=== PATIENT | female | born 1945 | race Caucasian/White ===

== ENCOUNTER 2019-10-22 16:36 | Inpatient (IN) | payer MEDICARE, SELFPAY ==
[2019-10-22] VITALS (7 sets, daily range): BP systolic 105–175; BP diastolic 61–83; PULSE 62–73; RESP 15–21; TEMP 35.9–36.5; O2SAT 94–99
--- NOTE | ~2019-10-22 | XR_ITS ---
XR chest 2V DATE: 10/22/2019 17:03 INDICATION: Left chest pain TECHNIQUE: PA and lateral views COMPARISON: 11/11/2016 portable AP chest FINDINGS: Status post sternotomy and probable coronary artery bypass graft surgery. Normal heart size . Aortic calcification. No hilar or mediastinal enlargement. No pulmonary infiltrate or consolidation, pleural effusion or pulmonary vascular congestion or pneumo thorax. There is scoliosis and degenerative spurring of the thoracic and lumbar spine. IMPRESSION: No active cardiopulmonary disease Reviewed, dictated and finalized at location A.
--- NOTE | 2019-10-22 16:41 | ECG_ITS ---
Measurements Intervals [place] Rate: 69 P: 25 CA: 172 QRS: -37 QRSD: 117 T: 28 QT: 398 QTc: 427 Interpretive Statements SINUS RHYTHM LEFT AXIS DEVIATION INTRAVENTRICULAR CONDUCTION DELAY VOLTAGE CRITERIA FOR LVH POOR R WAVE PROGRESSION, ANTERIOR LEADS BASELINE ARTIFACT- I, III, AVL, AVF, V4 BORDERLINE ECG Electronically Signed On 10-22-2019 18:24:54 CDT by Josh Luico D.O.
--- NOTE | 2019-10-22 16:51 | PC.NURSE ---
Pt notes she took Asa 324 at home this am.
[2019-10-22 16:59] LABS: Basophils Absolute Auto 0.1 K/mm3 (0.0-0.1); Basophils Percent Auto 0.6 % (0.2-1.2); Eosinophils Absolute Auto 0.2 K/mm3 (0-0.3); Eosinophils Percent Auto 1.9 % (0-4.4); Hemoglobin 13.7 g/dL (12.0-15.0); Immature Granulocyte Absolute 0.03 K/mm3 (0.00-0.031); Immature Granulocyte Percent A 0.3 % (0-0.5); Lymphocytes Absolute Auto 2.22 K/mm3 (0.9-3.2); Lymphocytes Percent Auto 25.8 % (18.3-44.2); Mean Corpuscular HGB Conc 31.9 g/dl (32-36); Mean Corpuscular Hemoglobin 25.8 pg (26-34); Mean Platelet Volume 8.9 fl (7.4-10.4); Monocytes Absolute Auto 0.6 K/mm3 (0.1-0.6); Monocytes Percent Auto 6.4 % (2.6-8.5); Neutrophils Absolute Auto 5.6 K/mm3 (1.3-6.7); Platelet Count Result 278 k/mm3 (150-375); Red Blood Count 5.31 M/mm3 (4.2-5.4); White Blood Count 8.6 K/mm3 (4.5-10.0)
--- NOTE | 2019-10-22 17:04 | ED.CHESTPAIN ---
HPI - Chest Pain General Chief Complaint: Chest Pain Stated Complaint: THINK I'M HAVING A HEART ATTACK Time Seen by Provider: 10/22/19 17:03 History of Present Illness HPI narrative: Pressure like chest pain starting around 1545 this afternoon. Substernal. Radiates to left arm. Associated with mild nausea. No SOB. She has a h/o 5 vessel CABG in 2017. She has never had similar symptoms in the past. She took 325 of aspirin. Pain is nearly resolved on arrival to the ED. Related Data Home Medications Medication Instructions Recorded Confirmed aspirin 325 mg PO DAILY 10/22/19 10/23/19 diclofenac sodium 75 mg PO BID PRN 10/22/19 10/22/19 lisinopril-hydrochlorothiazide 1 tablet PO DAILY 10/22/19 10/22/19 metoprolol succinate 25 mg PO DAILY 10/22/19 10/22/19 pantoprazole 40 mg PO HS 10/22/19 10/22/19 rosuvastatin 10 mg PO HS 10/22/19 10/23/19 Allergies Allergy/AdvReac Type Severity Reaction Status Date / Time No Known Allergies Allergy Verified 10/22/19 16:47 Review of Systems Review of Systems: All systems reviewed & are unremarkable except as noted in HPI and below Constitutional: Constitutional: Denies chills and Denies fever(s) Cardiovascular: Cardiovascular: Reports chest pain and Reports radiating jaw, neck or arm pain Respiratory: Respiratory: Denies dyspnea Gastrointestinal: Gastrointestinal: Reports abdominal pain Neurologic: Denies numbness and Denies weakness [facility] Past Medical History Medical History (Updated 10/23/19 @ 07:04 by Angel Kaufman MD) CAD (coronary artery disease) HTN (hypertension) Hyperlipidemia Surgical History Surgical History (Updated 10/22/19 @ 23:14 by Shirley Quintero NP) H/O bilateral cataract extraction Hx of CABG 5 vessel 2017 S/P appendectomy Family History Family History Mother Family history of heart attack Father Cancer of lung Sibling Diabetes mellitus Family history of heart attack Social History Social History (Updated 10/22/19 @ 23:18 by Shirley Quintero NP) Social History: The patient is . She lives home alone. She has 3 children. Patient denies any marijuana or illicit drugs. She tells me that she is a DNR we discussed what that meant she stated she does not want anything done not even CPR. She would even want to be shocked she is in VFib. She believes her sister's her durable power of patent attorney for healthcare. She is retired from [employer]. She is a former smoker. She quit 50 years ago. Smoking packs per day: 0.5 Smoking cigarettes per day: 10.0 Years smoked: 5 Smoking pack-years: 2.50 Smoking status: Former smoker Tobacco type: cigarettes Smoking end date: 04/30/1967 Alcohol intake: former Drinks per week: 1 Substance use: never Gender identity (if verbalized by the patient): Female Spiritual care concerns: No Exam Const: General: healthy appearing, no acute distress and alert Orientation/consciousness: patient oriented x3 HENMT: Head: normal to inspection Neck: Neck: normal visual inspection and no lymphadenopathy Chest: Chest palpation & inspection: no tenderness Resp: Effort & Inspection: normal respiratory effort Auscultation: clear to auscultation bilaterally, no rales, no rhonchi and no wheezes Cardio: Jugular venous distension: no JVD Rate: regular rate Rhythm: regular rhythm Heart sounds: Murmur heart sound present systolic GI: Inspection: non-distended GI Palp: Yes Soft to palpation and No Tenderness to palpation present (GI) Skin: General skin exam: normal color Neuro: General: patient oriented x3 and moves all extremities Speech: normal speech Extrem: General: no edema Psych: Appearance: well kempt Affect: normal affect Course Vital Signs Vital signs: Vital Signs Temperature 36.5 C 10/22/19 16:44 Pulse Rate 73 10/22/19 16:44 Respiratory Rate 15 10/22/19 16:44 Blood Pressure 175/82 H
[2019-10-22 17:09] LABS: Prothrombin Time 13.1 Seconds (11.1-14.7)
[2019-10-22 17:10] LABS: Blood Urea Nitrogen 24 mg/dL (7-17); Calcium 9.8 mg/dL (8.4-10.2); Carbon Dioxide 28 mmol/L (22-30); Chloride 105 mmol/L (98-107); Estimated CRCL calculation 42 ml/min; Estimated Glomerular Filt Rate 44; Glucose 114 mg/dL (65-105); Partial Thromboplastin Time 27.8 SECONDS (22.3-36.8); Potassium 3.7 mmol/L (3.4-5.0); Sodium 140 mmol/L (137-145)
[2019-10-22 17:22] LABS: Troponin I 0.022 ng/mL (0.000-0.034)
[2019-10-22] MEDS: NITROGLYCERIN SL 0.4 MG TABLET SUBLINGUAL (18:36)
--- NOTE | 2019-10-22 18:37 | PC.NURSE ---
1836: 0.4 mg sublingual nitro given HR: 68 BP: 155/72 Pain 2/10
--- NOTE | 2019-10-22 18:40 | PC.NURSE ---
Pt states the CP is gone after one dose of Nitro
[2019-10-22] MEDS: LACTATED RINGERS 1,000 ML 75 ML IV CONT (20:14)
--- NOTE | 2019-10-22 20:54 | ADMGEN ---
This patient, Ana Esquivel, was admitted to IMU Room 207-01 from ER 10/22/191939. Patient/family oriented to hospital policies and general routines including ID bracelet, bed and alarms, visiting hours, pain management, procedures, bathroom and other care routines, personal items, smoking policy, room service/diet, and visiting hours. Valuables list has been completed. Information on how to activate the Rapid Response Team has been discussed. Patient/Family are encouraged to report perceived risks to care and to ask questions if they do not understand what they are told or what they should do.
[2019-10-22] MEDS: SODIUM CHLORIDE 0.9% IV 1,000 ML 75 ML IV CONT (21:34)
[2019-10-22] MEDS: HEPARIN SODIUM 5,000 UNITS/ML VIAL 4000 UNITS IV PUSH (21:35)
[2019-10-22] MEDS: HEPARIN SOD/D5W 100 UNITS/ML 25,000 UNITS/250 ML BAG 8 UNITS IV CONT (21:35)
--- NOTE | 2019-10-22 23:08 | PM.IMHP ---
H&P: HPI History of Present Illness Chief complaint: Chest Pain Narrative: Ana Esquivel is a 73 year old female who was a past medical history of having a 5 vessel CABG. And also hypertension. The patient developed pressure-like chest pain this afternoon. It is substernal. It radiated to left arm. The patient stated felt like she was having a heart attack. Thatch no shortness of breath she has never had this in the past. The patient stated that she did not have a heart attack in the past she just had coronary artery disease and had a 5 vessel CABG.EKG was read as poor R wave progression baseline artifact borderline EKG. First troponin was negative and the 2nd troponin was 1.460. Cardiology has been consulted and ordered a heparin drip. Patient is not currently having any discomfort. Was read as no acute active cardiopulmonary disease. Patient was given an aspirin, nitroglycerin, lactic Ringer's, and heparin drip. Date of service 10/22/2019 Review of Systems Review of Systems: All systems reviewed & are unremarkable except as noted in HPI and below Constitutional: Constitutional: Reports as per HPI and Reports no additional constitutional complaints Eyes: Eyes: Reports as per HPI and Reports no additional eye complaints ENT: Reports system reviewed and no additional complaints, except as documented and Reports Normal hearing present Cardiovascular: Cardiovascular: Reports no additional cardiovascular complaints Respiratory: Respiratory: Reports no additional respiratory complaints and Reports no additional respiratory complaints Gastrointestinal: Gastrointestinal: Reports as per HPI and Reports no additional gastrointestinal complaints Musculoskeletal: Musculoskeletal: Reports no additional musculoskeletal complaints Integumentary/Breasts: Skin/Breast: Reports system reviewed and no additional complaints, except as docu and Reports as per HPI Neurologic: Reports system reviewed and no additional complaints, except as documented, Reports as per HPI and Reports Normal hearing present Psychiatric: Psychiatric: Reports no additional psychiatric complaints and Reports as per HPI Endocrine: Endocrine: Reports no additional endocrine complaints Hematologic/Lymphatic: Hematologic/Lymphatic: Reports no additional hematologic/lymphatic complaints Allergic/Immunologic: Allergic/Immunologic: Reports no additional allergic/immunologic complaints [facility] Past Medical History Medical History (Updated 10/22/19 @ 23:22 by Shirley Quintero NP) CAD (coronary artery disease) HTN (hypertension) Hyperlipidemia Surgical History Surgical History (Updated 10/22/19 @ 23:14 by Shirley Quintero NP) H/O bilateral cataract extraction Hx of CABG 5 vessel 2017 S/P appendectomy Family History Family History Mother Family history of heart attack Father Cancer of lung Sibling Diabetes mellitus Family history of heart attack Social History Social History (Updated 10/22/19 @ 23:18 by Shirley Quintero NP) Social History: The patient is . She lives home alone. She has 3 children. Patient denies any marijuana or illicit drugs. She tells me that she is a DNR we discussed what that meant she stated she does not want anything done not even CPR. She would even want to be shocked she is in VFib. She believes her sister's her durable power of employment law attorney for healthcare. She is retired from [employer]. She is a former smoker. She quit 50 years ago. Smoking packs per day: 0.5 Smoking cigarettes per day: 10.0 Years smoked: 5 Smoking pack-years: 2.50 Smoking status: Former smoker Tobacco type: cigarettes Smoking end date: 04/30/1967 Alcohol intake: former Drinks per week: 1 Substance use: never Gender identity (if verbalized by the patient): Female Spiritual care concerns: No Meds Home Medications and Allergies Home Medications Medication
[2019-10-23] VITALS (33 sets, daily range): BP systolic 102–171; BP diastolic 55–95; PULSE 55–74; RESP 16–20; TEMP 35.8–37.1; O2SAT 91–96
--- NOTE | 2019-10-23 | ECHO_ITS ---
Patient Info Name: Ana Esquivel Age: 73 years : 1945 Gender: Female Ht: 66 in Wt: 185 lbs BSA: 2.00 m2 HR: 98 bpm BP: 151 / 75 mmHg Technical Quality: Good Exam Date: 10/23/2019 9:05 AM Exam Location: [facility] Patient Status: Inpatient Admit Date: 10/22/2019 Staff Ordering Physician: Davina Leone PA-C [place] Supervisor: Mckenzie Martin RDCS Attending Provider: Davina Leone PA-C Referring Physician: Sulema BUTCHER; Exam Type: CA echo doppler color flow Study Info Indications - LOUD MURMUR ACS Complete two-dimensional, color flow and Doppler transthoracic echocardiogram is performed. Summary 1. Left ventricular systolic function is normal, estimated at 55-60%. 2. There is moderately increased left ventricular wall thickness. 3. There is severe aortic valve sclerosis. 4. There is severe aortic valve stenosis. 5. The mitral valve has calcified annulus. 6. There is mild mitral valve regurgitation. 7. There is mild mitral valve stenosis. 8. There is mild tricuspid valve regurgitation. 9. Mild pulmonary hypertension, estimated pulmonary arterial systolic pressure is 42 mmHg. Left Ventricle Left ventricular chamber dimension is normal. Left ventricular systolic function is normal, estimated at 55-60%. There is moderately increased left ventricular wall thickness. Left ventricular septal wall motion is normal. The left ventricular diastolic function is normal. Right Ventricle Right ventricular chamber dimension is normal. Right ventricular systolic function is normal. Left Atria Left atrial chamber dimension is mildly enlarged. Right Atria Right atrial chamber dimension is normal. Aortic Valve The aortic valve is trileaflet. There is severe aortic valve sclerosis. There is severe aortic valve stenosis. There is no aortic valve regurgitation. Pulmonic Valve The pulmonic valve is normal. There is no pulmonic valve stenosis. There is no pulmonic regurgitation. Mitral Valve The mitral valve has calcified annulus. There is mild mitral valve stenosis. There is mild mitral valve regurgitation. Tricuspid Valve The tricuspid valve leaflets are normal. There is no significant tricuspid valve stenosis. There is mild tricuspid valve regurgitation. Mild pulmonary hypertension, estimated pulmonary arterial systolic pressure is 42 mmHg. Pericardium/Pleural The pericardium appears normal. There is no pericardial effusion. Aorta The aortic root size at the sinus of Valsalva is normal. The prox ascending aorta size is normal. Left Ventricular Outflow Tract Name Value Normal LVOT 2D LVOT Diameter 2.0 cm LVOT Doppler LVOT Peak Gradient 4 mmHg LVOT Mean Gradient 3 mmHg LVOT VTI 30 cm LVOT VTI/AV VTI Ratio 0.3 LVOT Stroke Volume 92 ml LVOT CO 15.3 l/min LVOT CI 7.7 l/min/m2 Pulmonic Valve
[2019-10-23] MEDS: PANTOPRAZOLE 40 MG TABLET PO ×2 (00:43→20:09)
[2019-10-23] MEDS: ROSUVASTATIN 10 MG TABLET PO ×2 (00:43→20:09)
[2019-10-23 03:31] LABS: Basophils Percent Auto 0.5 % (0.2-1.2); Eosinophils Absolute Auto 0.2 K/mm3 (0-0.3); Eosinophils Percent Auto 2.4 % (0-4.4); Hematocrit 39.2 % (37.0-47.0); Hemoglobin 12.3 g/dL (12.0-15.0); Immature Granulocyte Absolute 0.02 K/mm3 (0.00-0.031); Immature Granulocyte Percent A 0.3 % (0-0.5); Lymphocytes Absolute Auto 2.11 K/mm3 (0.9-3.2); Lymphocytes Percent Auto 31.8 % (18.3-44.2); Mean Corpuscular HGB Conc 31.4 g/dl (32-36); Mean Corpuscular Hemoglobin 25.8 pg (26-34); Mean Corpuscular Volume 82.4 fl (80-100); Mean Platelet Volume 9.4 fl (7.4-10.4); Monocytes Absolute Auto 0.5 K/mm3 (0.1-0.6); Monocytes Percent Auto 7.1 % (2.6-8.5); Neutrophils Absolute Auto 3.9 K/mm3 (1.3-6.7); Neutrophils Percent Auto 57.9 % (45.5-73.1); Platelet Count Result 244 k/mm3 (150-375); Red Blood Count 4.76 M/mm3 (4.2-5.4); Red Cell Distribution Width 16.1 % (11.5-14.5); White Blood Count 6.6 K/mm3 (4.5-10.0)
[2019-10-23 03:44] LABS: Partial Thromboplastin Time 113.7 SECONDS (22.3-36.8)
[2019-10-23 03:51] LABS: INR 1.2; Prothrombin Time 14.4 Seconds (11.1-14.7)
--- NOTE | 2019-10-23 08:03 | PM.IMPN ---
Progress Note: A&P Assessment and Plan (1) Chest pain: Qualifiers: Chest pain type: unspecified Qualified Code(s): R07.9 - Chest pain, unspecified Code(s): R07.9 - Chest pain, unspecified Status: Acute Assessment and Plan: ------the patient continues to have chest pain with the heparin drip. I have asked the nurse to give her a nitro to see if this helps. Her troponin was as high as 11 last night and I have redrawn it this morning. I am going to get an EKG at this time as well. Because of her loud murmur, will obtain echo. Await cardiologys recs, may need cath today. Will continue NPO status. (2) Elevated troponin: Code(s): R79.89 - Other specified abnormal findings of blood chemistry Status: Acute Assessment and Plan: -----See above. (3) Hyperlipidemia: Code(s): E78.5 - Hyperlipidemia, unspecified Status: Chronic Assessment and Plan: -----Continue with rosuvastatin (4) CAD (coronary artery disease): Code(s): I25.10 - Atherosclerotic heart disease of [place] coronary artery without angina pectoris Status: Chronic Assessment and Plan: ------History of 5 vessel CABG and she sees Dr. Villalta. She has been having dyspnea on exertion for the last 6 months. See above (5) HTN (hypertension): Code(s): I10 - Essential (primary) hypertension Status: Chronic Assessment and Plan: -----last blood pressure 151/75. Continue metoprolol Time Spent With Patient Time with patient: 25 - 35 minutes Subjective Date/time seen: 10/23/19 08:03 Interval history: Pt is a 73-year-old female here for chest pain. Patient was seen today and states she is still having her pressure-like chest pain and she rates it a 7/10 but says it is tolerable. She has no shortness of breath at rest, diaphoresis, left arm pain, or jaw pain. She does have some dyspnea on exertion if she is up and moving. This started about 6 months ago and has been getting progressively worse. She has not taken a nitro since admission in the ER but that did help her at that time. She denies fevers, chills, nausea, vomiting, diarrhea, or constipation. She had her CABG in [address] Villalta. She has no known history of valvular disease Review of Systems Review of Systems: All systems reviewed & are unremarkable except as noted in HPI and below Exam Narrative: Exam Narrative: General: Well developed well nourished patient sitting comfortably on the side of the bed in no acute distress HEENT: normocephalic Neck: supple Neuro: Alert and oriented x4 CV:RRR with a loud systolic murmur. Telemetry without significant alarm reviews Resp:CTA Abd: Soft, non distended. No pain to palpation. Positive bowel sounds Extremities: No swelling, erythema, or pain to palpation. Objective Data Vital Signs Vital Signs: Vital Signs - 24 hr 10/22/19 16:44 10/22/19 16:48 10/22/19 17:43 Temperature 97.7 F Pulse Rate 73 71 68 Respiratory Rate 15 20 Blood Pressure 175/82 H 175/83 H Pulse Oximetry 97 95 10/22/19 19:00 10/22/19 19:40 10/22/19 20:00 Temperature 96.6 F L Pulse Rate 66 62 65 Respiratory Rate 21 H 18 Blood Pressure 105/66 125/61 Pulse Oximetry 94 99 10/22/19 22:00 10/23/19 00:00 10/23/19 01:42 Temperature 97 F L Pulse Rate 68 64 65 Respiratory Rate 18 Blood Pressure 125/64 Pulse Oximetry 94 10/23/19 04:00 10/23/19 04:14 10/23/19 05:45 Temperature 96.5 F L Pulse Rate 66 69 70 Respiratory Rate 18 Blood Pressure 136/67 Pulse Oximetry 95 Intake/Output Intake/Output: Intake & Output 10/20/19 10/21/19 10/22/19 10/23/19 23:59 23:59 23:59 23:59 Intake Total 100 1015 Output Total 200 Balance 100 815 Meds/Results Medications: Active Medications Generic Name Dose Route Start Last Admin Trade Name Freq PRN Reason Stop Dose Admin Heparin Sodium (Porcine)
[2019-10-23] MEDS: NITROGLYCERIN SL 0.4 MG TABLET SUBLINGUAL (08:05)
--- NOTE | 2019-10-23 08:09 | ECG_ITS ---
Measurements Intervals [place] Rate: 61 P: 20 NC: 170 QRS: -34 QRSD: 110 T: 141 QT: 351 QTc: 354 Interpretive Statements SINUS RHYTHM LEFT AXIS DEVIATION INTRAVENTRICULAR CONDUCTION DELAY VOLTAGE CRITERIA FOR LVH BORDERLINE R WAVE PROGRESSION, ANTERIOR LEADS NONSPECIFIC T-WAVE ABNORMALITY- HIGH LATERAL LEADS BASELINE ARTIFACT- I, II, III BORDERLINE ECG Electronically Signed On 10-23-2019 11:03:23 CDT by Josh Lucio D.O.
--- NOTE | 2019-10-23 08:51 | PM.CNCAR ---
Assessment and Plan Assessment and plan (1) NSTEMI (non-ST elevated myocardial infarction): Code(s): I21.4 - Non-ST elevation (NSTEMI) myocardial infarction Status: Acute Assessment and Plan: 73 y/o with h/o CAD s/p CABG X5 in 2017 who presents with chest pain and NSTMI Trop up to 18 and rising She is chest pain free now EKG with T wave inversion in I and AVL She is scheduled for C early this afternoon Mean while she is on IV heparin. Will also start Nitro transdermal to manage her anginal pain She has received full dose ASA WIll resume Statin Would Continue Metoprolol but will hold her other antihypertensives for now to allow BP room for nitroglycerin Check 2D echocardiogram (2) CAD (coronary artery disease): Code(s): I25.10 - Atherosclerotic heart disease of [place] coronary artery without angina pectoris Status: Chronic Assessment and Plan: s/p CABG X5 in 2017 MARSHALL to LAD, SVG to D1,D2,OM2,RCA) (3) Aortic stenosis: Code(s): I35.0 - Nonrheumatic aortic (valve) stenosis Status: Acute Assessment and Plan: Moderate based on Echo in Dec. WIll follow echo ordered today (4) HTN (hypertension): Code(s): I10 - Essential (primary) hypertension Status: Chronic History of Present Illness History of Present Illness Consult date/time: 10/23/19 08:51 73 y/o female with h/o CAD s/p CABG X5 in 2017 (MARSHALL to LAD, SVG to D1,D2, OM2,and distal RCA) , HTN, HLD, moderate who presented with chest pain and NSTMI Patient reports episode of chest pain, left sided pressure like yesterday and called her sister who took her to ER but by the time she got to ER chest pain has resolved (took ASA at home). No assoicated nausea, diaphoresis or dyspnea. She had another episode of chest pain while in ER and another episode this am both resolved with nitro SL. Her troponin came back positive and still rising 1.5-->11-->18. She feels better after episode of chest pain this am with nitro,chest pain down to 1/10 from 710. Her EKG shows normal sinus rhythm with T wave inversion in I and AVL. She last saw her medical claims assistant (Dr Johnson) in Sep and had stress test at that time which was negative for ischemia with inferioapical fixed defect that was better on stress and felt to be artifactual. She also had echo with normal EF and moderate aortic stenosis with mean gradient of 34. She denies dyspnea currently but admits to increase dyspnea on exertion over the last few months. Denies dizziness, lightheadedness or syncope She quit smoking long time ago Reason For Visit: Chest Pain Review of Systems Review of Systems: All systems reviewed & are unremarkable except as noted in HPI and below Constitutional: Constitutional: Denies fatigue and Denies headache(s) Eyes: Eyes: Denies blurry vision ENT: Reports Normal hearing present and Denies headache(s) Cardiovascular: Cardiovascular: Reports chest pain, Denies diaphoresis, Denies pedal edema, Denies leg edema, Denies lightheadedness, Denies palpitations and Denies dyspnea Respiratory: Respiratory: Denies cough and Denies dyspnea Gastrointestinal: Gastrointestinal: Denies abdominal pain Musculoskeletal: Musculoskeletal: Denies back pain Neurologic: Reports Normal hearing present and Denies headache(s) Psychiatric: Psychiatric: Denies anxiety Endocrine: Endocrine: Denies fatigue and Denies palpitations PMFSH Past Medical History Medical History (Updated 10/23/19 @ 09:02 by Ismael Monreal MD) CAD (coronary artery disease) HTN (hypertension) Hyperlipidemia Surgical History Surgical History (Updated 10/22/19 @ 23:14 by Shirley Quintero NP) H/O bilateral cataract extraction Hx of CABG 5 vessel 2017 S/P appendectomy Family History Family History Mother Family history of heart attack Father Cancer of lung Sibling Diabetes mellitus Family history of
[2019-10-23] MEDS: NITROGLYCERIN 0.1 MG/HR PATCH 1 PATCH TRANSDERM (10:11)
[2019-10-23] MEDS: METOPROLOL SUCCINATE EXT REL 25 MG TABCR PO (10:17)
[2019-10-23] MEDS: SODIUM CHLORIDE 0.9% IV 1,000 ML 75 ML IV CONT (10:17)
[2019-10-23 11:10] LABS: Partial Thromboplastin Time 55.1 SECONDS (22.3-36.8)
[2019-10-23] MEDS: HEPARIN SODIUM 5,000 UNITS/ML VIAL 3000 UNITS IV PUSH (11:50)
--- NOTE | 2019-10-23 14:04 | WPDMODSED ---
Moderate Sedation Note-Pt Data Patient Data Allergies Allergy/AdvReac Type Severity Reaction Status Date / Time No Known Allergies Allergy Verified 10/22/19 16:47 Home Medications Medication Instructions Recorded Confirmed Type aspirin 325 mg PO DAILY 10/22/19 10/23/19 History diclofenac sodium 75 mg PO BID PRN 10/22/19 10/22/19 History lisinopril-hydrochlorothiazide 1 tablet PO DAILY 10/22/19 10/22/19 History metoprolol succinate 25 mg PO DAILY 10/22/19 10/22/19 History pantoprazole 40 mg PO HS 10/22/19 10/22/19 History rosuvastatin 10 mg PO HS 10/22/19 10/23/19 History Current Medications: Active Medications Heparin Sodium (Porcine) (Heparin Sodium) 4,000 units IV PUSH PRN PRN PRN Reason: aPTT less than 55 seconds Heparin Sodium (Porcine) (Heparin Sodium) 3,000 units IV PUSH PRN PRN PRN Reason: aPTT 55 - 70 seconds Last Admin: 10/23/19 11:50 Dose: 3,000 units Documented by: Sodium Chloride (Normal Saline Iv) 1,000 mls @ 75 mls/hr IV CONT .[id number] [facility] Last Admin: 10/23/19 10:17 Dose: 75 mls/hr Documented by: Heparin Sodium/Dextrose (Heparin Sodium/D5w 100 Units/Ml) 25,000 units in 250 mls @ 8 mls/hr IV CONT .Q24H [facility]; Protocol Last Titration: 10/23/19 11:52 Dose: 800 units/hr, 8 mls/hr Documented by: Metoprolol Succinate (Toprol Xl) 25 mg PO DAILY [facility] Last Admin: 10/23/19 10:17 Dose: 25 mg Documented by: Morphine Sulfate (Morphine Sulfate Inj) 2 mg IV PUSH Q2H PRN PRN Reason: Pain Rated 7-10 Nitroglycerin (Nitro-Dur 0.1 Mg/Hr) 1 patch TRANSDERM QAM [facility] Last Admin: 10/23/19 10:11 Dose: 1 patch Documented by: Pantoprazole Sodium (Protonix) 40 mg PO HS MADELIN Rosuvastatin Calcium (Crestor) 10 mg PO HS MADELIN Sedation/Anesthesia: No previous sedation/anesthesia problems (including family history). [facility] Past Medical History Medical History (Updated 10/23/19 @ 09:02 by Ismael Monreal MD) CAD (coronary artery disease) HTN (hypertension) Hyperlipidemia Surgical History Surgical History (Updated 10/22/19 @ 23:14 by Shirley Quintero NP) H/O bilateral cataract extraction Hx of CABG 5 vessel 2017 S/P appendectomy Family History Family History Mother Family history of heart attack Father Cancer of lung Sibling Diabetes mellitus Family history of heart attack Social History Social History (Updated 10/22/19 @ 23:18 by Shirley Quintero NP) Social History: The patient is . She lives home alone. She has 3 children. Patient denies any marijuana or illicit drugs. She tells me that she is a DNR we discussed what that meant she stated she does not want anything done not even CPR. She would even want to be shocked she is in VFib. She believes her sister's her durable power of scheduling coordinator for healthcare. She is retired from [employer]. She is a former smoker. She quit 50 years ago. Smoking packs per day: 0.5 Smoking cigarettes per day: 10.0 Years smoked: 5 Smoking pack-years: 2.50 Smoking status: Former smoker Tobacco type: cigarettes Smoking end date: 04/30/1967 Alcohol intake: former Drinks per week: 1 Substance use: never Gender identity (if verbalized by the patient): Female Spiritual care concerns: No Mod Sed Physical Exam Physical Exam Pre Procedural Exam: Normal: Appearance, Eyes, Ears, Nose, Neck, Throat, Airway, Lungs, Heart Size, Heart Rate, Heart Rhythm, Neuro Exam, Abdomen, Liver, Kidneys, Spleen, Breasts, Genitalia, Extremities and Skin Hours since solid foods: 8 Hours since liquid intake: 8 Internal Medicine - PN: Obj Da Vital Signs Vital Signs: Vital Signs - 24 hr 10/22/19 16:44 10/22/19 16:48 10/22/19 17:43 Temperature 36.5 C Pulse Rate 73 71 68 Respiratory Rate 15 20 Blood Pressure 175/82 H 175/83 H Pulse Oximetry 97 95 10/22/19 19:00 10/22/19 19:40 10/22/19 20:00 Temperature 35.9 C L Pulse Rate 66 62 65 Respiratory Rate 21 H 18 Blood Pressure
--- NOTE | 2019-10-23 14:32 | PC.NURSE ---
1350- to veterinary laboratory technician for procedure via bed accompanied by RN's
--- NOTE | 2019-10-23 14:37 | PC.NURSE ---
0825- called Dr. Balderrama elevated troponin and pt c/o chest pain this am-
--- NOTE | 2019-10-23 15:00 | SUR.PHASEII ---
BEGIN PHASE II RECOVERY. RETURNS TO [facility] S/P [facility] W/ DR. HAWKINS. AWAKE AND ALERT ON ARRIVAL. DENIES CP OR SOB. 5FR SHEATH INTACT R. FEM ARTERY. SITE SOFT, NONTENDER. NO HEMATOMA NOTED OR OOZE. VSS. MONITOR SR. IVF'S INFUSING ORDERED TO IV. R. PEDAL PULSE STRONG. SENSATION AND MOVEMENT R. FOOT WNL. WILL MONITOR.
--- NOTE | 2019-10-23 15:03 | WPDCARDPROC ---
Cardiac Cath Procedure Note Date of procedure:: 10/23/19 Performing physician:: Ben Villalta MD Procedure: 1. Left heart catheterization, selective coronary angiogram. 2. Bypass graft angiogram 3. Conscious sedation. Monitoring Tech: Dr. Ben Villalta Complications: None. Sedation: Conscious sedation, local anesthesia, using 1 mg of Versed said, 25 mcg of fentanyl, and using 1% lidocaine for local anesthesia. Starting time is 2:30 p.m. ending time is 3:00 p.m. Technique: After informed consent was obtained from patient, was brought to the laboratory mechanic helper, put in the laboratory mechanic helper table, prepped and draped in usual sterile fashion. [place] sheath was inserted into the right common femoral artery, through the sheath 5 [place] JL4 catheter inserted, advanced to the left coronary artery, left coronary artery angiogram was obtained. The catheter was exchanged over guidewire into a 5 [place] JR4 catheter, advanced to the right coronary artery, right coronary artery angiogram was obtained. The catheter then was exchanged over guidewire into this 5 [place] pigtail catheter, advanced to left ventricle, left ventricular pressure was obtained. MARSHALL catheter was used to engage the MARSHALL, and RCB catheter was used to engage the grafts. The catheter then was pulled, the sheath was pulled applying manual pressure for arterial hemostasis. Patient tolerated the procedure no complication, taken from the laboratory mechanic helper to his room in stable condition stable vital signs. Hemodynamics: aortic pressure 140/60 . LV pressure 184/04 with LVEDP of 25 mmHg, with 42 mmHg gradient across the aortic valve, calculated valve area is 0.67 cm squared Angiographic findings: Left main: Medium size vessel significant calcification and distal 50% disease Lad medium size artery, very calcified showed total occlusion right at the proximal portion Left circumflex artery, very calcified showed proximal area of stenosis 60%, 1st and 2nd obtuse marginal showed significant competitive flow seems to be filled the graft RCA: Showed proximal 90% disease and distal total occlusion Seven is venous graft to distal RCA is occluded MARSHALL to LAD is patent with good distal flow Saphenous venous graft to obtuse marginal 3 is patent with good flow Summary: Severe [place] coronary artery disease, patent MARSHALL and graft to obtuse marginal, occluded RCA graft but with total occlusion of the RCA, and some collaterals coming from the left system. Severe aortic valve stenosis Recommendation: Maximum medical treatment. Risk factor modification, will consider attempting angioplasty to the distal RCA with treatment of HAND CUTTER, she will need to have aortic valve replacement possibly TAVR.
--- NOTE | 2019-10-23 15:45 | SUR.PHASEII ---
PT. C/O HEADACHE PRIOR TO SHEATH PULL. REQUESTED TYLENOL. NOTIFIED DR. HAWKINS OF SUCH AND REQUESTED CLARIFICATION OF HEPARIN GTT ORDERS. ORDERS RECEIVED TO GIVE TYLENOL FOR HERNANDEZ AND DISCONTINUE ORDERS FOR HEPARIN GTT.
[2019-10-23] MEDS: ACETAMINOPHEN 325 MG TABLET 650 MG PO (16:07)
--- NOTE | 2019-10-23 16:18 | SUR.PHASEII ---
5FR SHEATH PULL FROM R. FEM ARTERY PER PROTOCOL BY THIS RN. FIRM STEADY MANUAL PRESSURE HELD TO SITE TO ACHIEVE HEMOSTASIS. TOLERATED WELL. WILL MONITOR CLOSELY.
--- NOTE | 2019-10-23 16:48 | SUR.PHASEII ---
HEMOSTASIS ACHIEVED TO R. FEM ARTERY PUNCTURE SITE AFTER 30 MINUTES MANUAL PRESSURE HOLD TO SITE BY THIS RN. TOLERATED WELL. SITE SOFT, NONTENDER, NO S/S BLEEDING, OOZE OR HEMATOMA NOTED. SITE DRESSED W/ STAT SEAL AND TEGADERM DRESSING. REVIEWED BEDREST TIME AND ACTIVITY RESTRICTIONS WITH PATIENT. VOICED UNDERSTANDING. WILL CONTINUE TO MONITOR.
--- NOTE | 2019-10-23 17:00 | SUR.PHASEII ---
CONDITION UPDATE GIVEN TO PT'S SISTER, CB PIERRE. [phone].
--- NOTE | 2019-10-23 17:40 | SUR.PHASEII ---
REPORT CALLED TO LENIN RIVER RN IN IMU. PT. IS TO RETURN TO ROOM 207. BEDREST UNTIL 2047.
--- NOTE | 2019-10-23 18:20 | SUR.PHASEII ---
END PHASE II RECOVERY. VSS. R. GROIN PUNCTURE SITE DRESSING C/D/I. NO BLEEDING OR HEMATOMA NOTED. SITE CLEAR. R. PEDAL PULSE IS STRONG. HAS VOIDED SMALL AMOUNT VIA BEDPAN. MONITOR SR. RETURNED TO IMU 207.1 VIA BED ON TELE MONITOR AT THIS TIME.
[2019-10-23] MEDS: SODIUM CHLORIDE 0.9% IV 1,000 ML 60 ML IV CONT (18:57)
--- NOTE | 2019-10-23 19:07 | PC.NURSE ---
1830- returned to room post cardiac cath- pt a/o x3- denies chest pain- vss- monitor SR 60's- Right groin with dressing-statseal/tegaderm - CDI; +2 pedal pulse- reviewed post op bedrest=pt verbalized understanding
[2019-10-24] VITALS: BP 116/73; PULSE 58; PULSE 68; RESP 16; TEMP 36.6; O2SAT 94
[2019-10-24 04:00] VITALS: BP 103/51; PULSE 64; PULSE 65; RESP 16; TEMP 36.5; O2SAT 92
[2019-10-24 04:53] LABS: Hematocrit 34.7 % (37.0-47.0); Hemoglobin 10.9 g/dL (12.0-15.0); Mean Corpuscular HGB Conc 31.4 g/dl (32-36); Mean Corpuscular Hemoglobin 25.8 pg (26-34); Platelet Count Result 216 k/mm3 (150-375); Red Blood Count 4.23 M/mm3 (4.2-5.4); Red Cell Distribution Width 16.2 % (11.5-14.5); White Blood Count 7.1 K/mm3 (4.5-10.0)
[2019-10-24 05:22] LABS: Alanine Aminotransferase 17 U/L (4-35); Alkaline Phosphatase 46 U/L (38-126); Aspartate Amino Transferase 62 U/L (14-36); Bilirubin,Total 0.8 mg/dL (0.2-1.3); Blood Urea Nitrogen 14 mg/dL (7-17); Calcium 8.3 mg/dL (8.4-10.2); Carbon Dioxide 24 mmol/L (22-30); Chloride 108 mmol/L (98-107); Estimated CRCL calculation 50 ml/min; Estimated Glomerular Filt Rate 55; Glucose 99 mg/dL (65-105); Magnesium 1.7 mg/dL (1.6-2.3); Potassium 3.7 mmol/L (3.4-5.0); Sodium 136 mmol/L (137-145)
[2019-10-24] MEDS: ACETAMINOPHEN 325 MG TABLET 650 MG PO (06:11)
--- NOTE | 2019-10-24 07:16 | PM.DS ---
DS: Admitting Diagnosis Admitting Diagnosis Admitting Diagnosis: Chest pain, unspecified DS: Discharge Diagnosis Discharge Diagnosis (1) NSTEMI (non-ST elevated myocardial infarction): Code(s): I21.4 - Non-ST elevation (NSTEMI) myocardial infarction Status: Acute (2) Aortic stenosis: Code(s): I35.0 - Nonrheumatic aortic (valve) stenosis Status: Acute (3) Chest pain: Qualifiers: Chest pain type: unspecified Qualified Code(s): R07.9 - Chest pain, unspecified Code(s): R07.9 - Chest pain, unspecified Status: Acute (4) Elevated troponin: Code(s): R79.89 - Other specified abnormal findings of blood chemistry Status: Acute (5) Hyperlipidemia: Code(s): E78.5 - Hyperlipidemia, unspecified Status: Chronic (6) CAD (coronary artery disease): Code(s): I25.10 - Atherosclerotic heart disease of [place] coronary artery without angina pectoris Status: Chronic (7) HTN (hypertension): Code(s): I10 - Essential (primary) hypertension Status: Chronic DS: Summary Hospital Course Reason for hospitalization: Chest pain Hospital Course: Patient is 73-year-old female who presented emergency room for pressure-like chest pain radiating to the left arm with a history of a CABG in 2017. Temperature 36.5?, pulse 73, respiratory rate 15, blood pressure 175/82, pulse ox 97 on room air. CBC within normal limits. BMP relatively normal with BUN 24 and creatinine 1.2. Initial chest x-ray showed no acute cardiopulmonary disease. EKG in the ER showed left axis deviation, intraventricular conduction delay, criteria for LVH but no significant abnormalities. 0.022 but increased to 1.460---> 11----> 18.8. Another EKG was done nonspecific T wave abnormalities in the lateral leads. Cardiology was consulted and she underwent a cardiac catheterization which showed: Severe [place] coronary artery disease, patent MARSHALL and graft to obtuse marginal, occluded RCA graft but with total occlusion of the RCA, and some collaterals coming from the left system. Severe aortic valve stenosis. Cardiology could not do any intervention and recommended Maximum medical treatment. Risk factor modification, will consider attempting angioplasty to the distal RCA with treatment of CRYSTALLOGRAPHY TEACHER, she will need to have aortic valve replacement possibly TAVR. The patient's did not have any chest pain after this and felt back to baseline. She was started on Plavix and is going to continue her regular home meds. She is going to follow-up with cardiology in 1-2 weeks. She also needs to get an evaluation for a TAVR. Status at Discharge Functional status at discharge: independent ambulation Overall status at discharge: patient is back to baseline Time Spent with Patient Time attestation: Total time spent providing and/or coordinating discharge services:34 min Time spent: Greater than 30 minutes Exam Narrative: Exam Narrative: General: Well developed well nourished patient sitting comfortably on the side of the bed in no acute distress HEENT: normocephalic Neck: supple Neuro: Alert and oriented x4 CV:RRR with a loud systolic murmur. Telemetry without significant alarm reviews Resp:CTA Abd: Soft, non distended. No pain to palpation. Positive bowel sounds Extremities: No swelling, erythema, or pain to palpation. Discharge Plan Discharge Attending physician on discharge: Dillan Sparks Consulting providers: Ben Villalta Discharging Clinician: Davina Leone Patient Disposition: Home, Self-Care Activity: as tolerated Diet: heart healthy Discharge Instructions: -please note your medications have changed -call your primary care physician if you start having black tarry stools -You are now on plavix which is sometimes revferred to as a blood thinner . This will make you bleed easier. If you have a wound or scrape yourself, you will need to hold pressure for a longer period
[2019-10-24 07:42] VITALS: PULSE 79
[2019-10-24] MEDS: METOPROLOL SUCCINATE EXT REL 25 MG TABCR PO (07:42)
[2019-10-24] MEDS: CLOPIDOGREL BISULFATE 75 MG TABLET PO (07:42)
[2019-10-24 08:00] VITALS: BP 114/75; PULSE 62; PULSE 69; RESP 16; TEMP 36.6; O2SAT 99
--- NOTE | 2019-10-24 09:43 | PM.PNCARD ---
Progress Note: A&P Assessment and Plan (1) NSTEMI (non-ST elevated myocardial infarction): Code(s): I21.4 - Non-ST elevation (NSTEMI) myocardial infarction Status: Acute Assessment and Plan: Pt underwent cath yesterday which showed patent MARSHALL to LAD and SVG to. SVG to RCA is occluded and there are colleteralls to distal occluded RCA. Cont medical management (2) Aortic stenosis: Code(s): I35.0 - Nonrheumatic aortic (valve) stenosis Status: Acute Assessment and Plan: Pt with severe . May benefit from TAVR. It needs to be arranged in tertiary center on outpatient basis. (3) CAD (coronary artery disease): Code(s): I25.10 - Atherosclerotic heart disease of [place] coronary artery without angina pectoris Status: Chronic (4) HTN (hypertension): Code(s): I10 - Essential (primary) hypertension Status: Chronic Assessment and Plan: well controlled. cont meds (5) Hyperlipidemia: Code(s): E78.5 - Hyperlipidemia, unspecified Status: Chronic Assessment and Plan: cont statin. Pt is going to be dc today with fu with her primary media relations manager (Dr. Villalta) in 3 days. Subjective Date/time seen: 10/24/19 09:43 Pt feels fine today, denies CP, SOB or palpitations. She is eager to go home. Pt was seen and examined, chart was reviewed, case d/w Dr. Villalta and pt's nurse. Review of Systems Review of Systems: All systems reviewed & are unremarkable except as noted in HPI and below Constitutional: Constitutional: Reports as per HPI Eyes: Eyes: Reports as per HPI ENT: Reports system reviewed and no additional complaints, except as documented and Reports as per HPI Cardiovascular: Cardiovascular: Reports as per HPI Respiratory: Respiratory: Reports as per HPI Gastrointestinal: Gastrointestinal: Reports as per HPI Genitourinary: Genitourinary: Reports as per HPI Musculoskeletal: Musculoskeletal: Reports as per HPI Exam Const: General: no acute distress Nutritional Appearance: well nourished Orientation/consciousness: patient oriented x3 HENMT: Head: normal to inspection and atraumatic Ears: hearing grossly normal bilaterally Face and sinus: normal facial exam Eyes: General: appearance normal, both eyes and all related structures Pupils: Equal, round and reactive pupils present EOM: EOMs intact bilaterally Neck: Neck: supple Chest: Chest palpation & inspection: normal inspection of the chest Resp: Effort & Inspection: normal respiratory effort and no respiratory distress Auscultation: clear to auscultation bilaterally Cardio: Jugular venous distension: no JVD Rate: regular rate Heart sounds: S1 normal heart sound present, S2 normal heart sound present and no murmurs Peripheral pulses: Peripheral pulses 2+ throughout GI: GI Palp: No abdominal tenderness Auscultation: normal bowel sounds Skin: General skin exam: normal color Neuro: General: patient oriented x3 Cranial nerves: Yes Equal, round and reactive pupils present Extrem: General: normal to inspection and no clubbing, cyanosis or edema Objective Data Vital Signs Vital Signs: Vital Signs - 24 hr 10/23/19 10:00 10/23/19 10:17 10/23/19 11:52 Temperature 36.2 C L Pulse Rate 62 64 55 L Respiratory Rate 20 Blood Pressure 171/78 H Pulse Oximetry 96 10/23/19 12:30 10/23/19 13:50 10/23/19 15:05 Temperature 37.1 C Pulse Rate 61 68 60 Respiratory Rate 16 Blood Pressure 121/64 Pulse Oximetry 91 10/23/19 15:20 10/23/19 15:35 10/23/19 15:50 Temperature Pulse Rate 61 60 59 L Respiratory Rate 16 18 18 Blood Pressure 139/68 140/66 145/64 H Pulse Oximetry 92 93 92 10/23/19 16:20 10/23/19 16:35 10/23/19 16:50 Temperature Pulse Rate 59 L 60 60 Respiratory Rate 16 20 16 Blood Pressure 148/79 H 127/90 134/70 Pulse Oximetry 92 93 93 10/23/19 17:05 10/23/19 17:20 10/23/19 17:35 Temperature Pulse Rate 59 L 60 64 Res
[2019-10-24 10:00] VITALS: PULSE 74
== END 2019-10-24 12:32 | disposition home or self-care (01) | DRG 282 ==
LOC: ANHED 18:20 → ANHIMU 18:30
PROVIDERS: Family Medicine; Nurse Practitioner; Physician Assistant; Specialist; Admitting Provider Internal Medicine; Emergency Provider Emergency Medicine; PCP Family Medicine Adolescent Medicine; Visit Provider Internal Medicine
PROC: 4A023N7 Measurement of Cardiac Sampling and Pressure, Left Heart, Percutaneous Approach (ICD-10-PCS; CPT 93459; principal; 2019-10-23 13:00)
DX: I21.4 Non-ST elevation (NSTEMI) myocardial infarction (principal); I25.10 Atherosclerotic heart disease of native coronary artery without angina pectoris; I35.0 Nonrheumatic aortic (valve) stenosis; E78.5 Hyperlipidemia, unspecified; R79.89 Other specified abnormal findings of blood chemistry; I10 Essential (primary) hypertension; Z66 Do not resuscitate; Z98.42 Cataract extraction status, left eye; Z98.41 Cataract extraction status, right eye; Z95.1 Presence of aortocoronary bypass graft; Z87.891 Personal history of nicotine dependence
CPT/HCPCS: 36415; 71046; 80048; 80076; 83735; 84484; 85025; 85027; 85610; 85730; 93005; 93306; 93459; 96361; 96365; 96366; 99285; A9270; C1769; C1887; C1894; G0378; J0461; J0583; J1644; J2250; J3010; J7030; J7040; J7120

== ENCOUNTER 2019-11-12 16:10 | Inpatient (IN) | payer MEDICARE, SELFPAY ==
[2019-11-12] VITALS (8 sets, daily range): BP systolic 124–139; BP diastolic 65–84; PULSE 90–102; RESP 18–20; TEMP 37.3–37.6; O2SAT 94–100; BMI 28.6
--- NOTE | ~2019-11-12 | XR_ITS ---
EXAMINATION: XR chest 2V DATE: 11/12/2019 18:12 INDICATION: Shortness of breath. Leukocytosis. TECHNIQUE: Frontal and lateral views of the chest were obtained. COMPARISON: Chest 2 views 10/22/2019 FINDINGS: There is mild atelectasis in left lower lung zone. No pleural effusion or pneumothorax. The heart size is normal. Median sternotomy wires and mediastinal surgical clips are seen, likely from p rior coronary artery bypass grafting. There is mild chronic anterior wedging of a midthoracic vertebr al body. IMPRESSION: 1. Mild atelectasis in left lower lung zone. Reviewed, dictated and finalized at location A.
--- NOTE | ~2019-11-12 | XR_ITS ---
EXAMINATION: XR hand BI arthritis min 3V DATE: 11/15/2019 17:41 INDICATION: Rheumatoid arthritis. Hand swelling. TECHNIQUE: 4 views of the right hand and 4 views of the left hand were obtained. COMPARISON: None. FINDINGS: RIGHT HAND: There is ulnar subluxation of fifth middle phalanx with respect to the proximal phalanx. No fracture. There is mild osteoarthritis of triscaphe joint and severe osteoarthritis of first carpo metacarpal joint. There is moderate osteoarthritis of second and third metacarpophalangeal joints. Th ere is severe osteoarthritis of fifth proximal interphalangeal joint. There is mild to moderate osteo arthritis of the other interphalangeal joints. LEFT HAND: Bone alignment is normal. No fracture. There is moderate osteoarthritis of triscaphe joint and severe osteoarthritis of first carpometacarpal joint. There is moderate osteoarthritis of second and third metacarpophalangeal joints. There is severe osteoarthritis of second, third, and fifth dis yolanda interphalangeal joints. There is mild to moderate osteoarthritis of the other interphalangeal my nts. IMPRESSION: 1. Polyarticular osteoarthritis. No evidence of inflammatory arthropathy. Reviewed, dictated and finalized at location A.
--- NOTE | ~2019-11-12 | US_ITS ---
US venous doppler UE DATE: 11/13/2019 15:11 INDICATION: Bilateral upper extremity pain TECHNIQUE: Real-time and color flow imaging and Doppler analysis of the veins of the upper extremitie s COMPARISON: None FINDINGS: There is flow documented by color flow imaging, augmentation and compression where applicab le at the internal jugular, subclavian, axillary, brachial, basilic, cephalic, radial and ulnar veins bilaterally. IMPRESSION: No evidence of deep venous thrombosis of either upper extremity Reviewed, dictated and finalized at [facility]. Reviewed, dictated and finalized at [facility].
--- NOTE | ~2019-11-12 | CT_ITS ---
EXAMINATION: CT brain wo con DATE: 11/12/2019 17:06 INDICATION: Right lower extremity paresis. Confusion, altered mental state for 4 hours. TECHNIQUE: Computed tomography (CT) of the head was performed without intravenous contrast. The mA wa s adjusted according to patient size. Iterative reconstruction technique was employed. Exam dose: 60 5.33 mGy-cm total exam DLP. COMPARISON: None FINDINGS: There is a focal small chronic area of encephalomalacia in the left frontal lobe, likely du e to old left frontal cerebrovascular infarct. No recent cerebrovascular accident is detected. CT is not sensitive for detection of hyperacute ische albertina cerebrovascular accident however. No intracranial mass lesion or hemorrhage. No midline shift or mass effect. Prominent bilateral carotid siphon internal carotid artery calcifications. There is nonspecific dimin ished attenuation of the subcortical and periventricular cerebral white matter, likely due to chronic small vessel ischemic changes. No subdural or epidural hematoma. No fracture or bone destruction of the cranial vault. Included paranasal sinuses and mastoid air cells are normally developed and aerated. 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 Reviewed, dictated and finalized at [facility]. Reviewed, dictated and finalized at [facility]. 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
--- NOTE | 2019-11-12 16:21 | ECG_ITS ---
Measurements Intervals [place] Rate: 90 P: MI: 0 QRS: -49 QRSD: 113 T: 106 QT: 370 QTc: 454 Interpretive Statements SINUS OR ECTOPIC ATRIAL RHYTHM LEFT ANTERIOR FASCICULAR BLOCK ST-T WAVE ABNORMALITY IN HIGH LATERAL LEADS- CONSIDER ISCHEMIA BASELINE ARTIFACT- I, II, III, AVR, AVL, AVF, V5 ABNORMAL ECG Electronically Signed On 11-12-2019 20:18:46 CDT by Josh Lucio D.O.
[2019-11-12 17:03] LABS: Hematocrit 40.5 % (37.0-47.0); Hemoglobin 13.2 g/dL (12.0-15.0); Mean Corpuscular HGB Conc 32.6 g/dl (32-36); Mean Corpuscular Hemoglobin 25.6 pg (26-34); Mean Corpuscular Volume 78.5 fl (80-100); Mean Platelet Volume 9.4 fl (7.4-10.4); Platelet Count Result 371 k/mm3 (150-375); Red Blood Count 5.16 M/mm3 (4.2-5.4); Red Cell Distribution Width 16.9 % (11.5-14.5); White Blood Count 36.8 K/mm3 (4.5-10.0)
[2019-11-12 17:23] LABS: Band Neutrophils Percent 13 % (0-6); Monocytes Absolute Manual 0.36 K/mm3 (0.1-0.90); Monocytes Percent Manual 1 % (3-9); Neutrophils Absolute Manual 35.32 K/mm3 (1.7-7.2); Neutrophils Percent Manual 83 % (46-73); Total Cells Counted 100
[2019-11-12 17:24] LABS: Anisocytosis 2+ (NORMAL); Platelet Estimate Adequate (Adequate)
--- NOTE | 2019-11-12 17:28 | ED.WEAKNESS ---
HPI - Weakness General Chief complaint: Weakness Stated complaint: weakness Time Seen by Provider: 11/12/19 16:39 Source: patient and family History of Present Illness HPI Narrative: 74-year-old female Main complaint is severe generalized muscle aching and weakness This is been getting worse since she was hospitalized here a couple weeks ago with NSTEMI and had a stent and was put on statins She also is supposed to be evaluated for a procedure on her heart valve but she is not sure what kind of procedure or which heart valve This afternoon she felt progressively more weak and ended up kind of falling onto the floor when she tried to get up and just felt bad and stayed there until somebody came and helped her up She denies more focal symptoms. Specifically no fever no productive cough no chest pain no urinary symptoms no vomiting or diarrhea She does not believe that she has focal weakness MD Complaint: generalized weakness, lack of energy and difficulty walking Onset (ago): day(s) Duration: progressively worsening Location: generalized Relieving factors: none Context: new medication Related Data Home Medications Medication Instructions Recorded Confirmed aspirin 325 mg PO DAILY 10/22/19 10/23/19 diclofenac sodium 75 mg PO BID PRN 10/22/19 10/22/19 lisinopril-hydrochlorothiazide 1 tablet PO DAILY 10/22/19 10/22/19 metoprolol succinate 25 mg PO DAILY 10/22/19 10/22/19 pantoprazole 40 mg PO HS 10/22/19 10/22/19 rosuvastatin 10 mg PO HS 10/22/19 10/23/19 Allergies Allergy/AdvReac Type Severity Reaction Status Date / Time No Known Allergies Allergy Verified 11/12/19 16:17 Review of Systems Review of Systems: All systems reviewed & are unremarkable except as noted in HPI and below Constitutional: Constitutional: Denies chills, Reports fatigue, Denies fever(s) and Reports weakness ENT: Denies sore throat Cardiovascular: Cardiovascular: Reports no additional cardiovascular complaints and Denies chest pain Respiratory: Respiratory: Denies chest congestion and Denies cough Gastrointestinal: Gastrointestinal: Denies diarrhea and Denies vomiting Genitourinary: Genitourinary: Denies nocturia and Denies dysuria Musculoskeletal: Musculoskeletal: Reports back pain, Reports myalgias and Reports arthralgias Neurologic: Denies headache(s) and Reports weakness Hematologic/Lymphatic: Hematologic/Lymphatic: Denies easy bruising PMFSH Past Medical History Medical History (Updated 11/12/19 @ 19:59 by Les Santiago MD) CAD (coronary artery disease) HTN (hypertension) Hyperlipidemia Surgical History Surgical History (Updated 10/22/19 @ 23:14 by Shirley Quintero NP) H/O bilateral cataract extraction Hx of CABG 5 vessel 2017 S/P appendectomy Social History Social History (Updated 10/22/19 @ 23:18 by Shirley Quintero NP) Social History: The patient is . She lives home alone. She has 3 children. Patient denies any marijuana or illicit drugs. She tells me that she is a DNR we discussed what that meant she stated she does not want anything done not even CPR. She would even want to be shocked she is in VFib. She believes her sister's her durable power of research attorney for healthcare. She is retired from [employer]. She is a former smoker. She quit 50 years ago. Smoking packs per day: 0.5 Smoking cigarettes per day: 10.0 Years smoked: 5 Smoking pack-years: 2.50 Smoking status: Former smoker Tobacco type: cigarettes Smoking end date: 04/30/1967 Alcohol intake: former Drinks per week: 1 Substance use: never Gender identity (if verbalized by the patient): Female Spiritual care concerns: No Exam Const: General: healthy appearing, no acute distress and well developed Nutritional Appearance: well nourished Orientation/consciousness: patient oriented x3 (alert) and Other orientation findings (Alert) Limitations: no limitations HENMT: Head: normocephalic and atraumatic Ea
[2019-11-12 18:18] LABS: Alanine Aminotransferase 14 U/L (4-35); Albumin Level 3.8 g/dL (3.5-5.1); Alkaline Phosphatase 97 U/L (38-126); Aspartate Amino Transferase 25 U/L (14-36); Bilirubin,Total 0.8 mg/dL (0.2-1.3); Blood Urea Nitrogen 32 mg/dL (7-17); Calcium 9.6 mg/dL (8.4-10.2); Carbon Dioxide 26 mmol/L (22-30); Chloride 95 mmol/L (98-107); Creatine Kinase 154 U/L (30-135); Estimated CRCL calculation 31 ml/min; Estimated Glomerular Filt Rate 32; Glucose 124 mg/dL (65-105); Potassium 3.6 mmol/L (3.4-5.0); Sodium 134 mmol/L (137-145)
[2019-11-12] MEDS: LACTATED RINGERS 1,000 ML 999 ML IV CONT ×2 (18:34→19:40)
[2019-11-12 19:30] LABS: Lactic Acid Reflex 1.6 mmol/L (0.7-2.1)
[2019-11-12 19:59] LABS: Add Urine Microscopic? YES; Appearance Urine Clear (Clear); Bilirubin Urine Negative (Negative); Blood Urine Negative (Negative); Cellular Casts Urine Present /lpf; Color Urine Yellow (Yellow); Glucose Urine UA Negative (Negative); Ketones Urine Trace mg/dL (Negative); Leukocyte Esterase Ur Negative LEU/UL (Negative); Mucus Urine Rare /lpf; Nitrate Urine Negative (Negative); Protein Urine 1+ mg/dL (Negative); RBC Urine 0-2 /hpf (0-2); Specific Grav Ur 1.019 (1.001-1.035); Squamous Epithelial Cell Urine Moderate /hpf (Few); Urobilinogen Urine Negative mg/dL (<2.0)
--- NOTE | 2019-11-12 21:39 | ADMGEN ---
This patient, Ana Esquivel, was admitted to 3 [facility] Surg Room 317-01. Patient/family oriented to hospital policies and general routines including ID bracelet, bed and alarms, visiting hours, pain management, procedures, bathroom and other care routines, personal items, smoking policy, room service/diet, and visiting hours. Valuables list has been completed. Information on how to activate the Rapid Response Team has been discussed. Patient/Family are encouraged to report perceived risks to care and to ask questions if they do not understand what they are told or what they should do.
[2019-11-12] MEDS: LACTATED RINGERS 1,000 ML 125 ML IV CONT (21:47)
[2019-11-13] VITALS (8 sets, daily range): BP systolic 129–149; BP diastolic 66–87; PULSE 64–92; RESP 18; TEMP 36.4–38; O2SAT 95–97
[2019-11-13] MEDS: ACETAMINOPHEN 325 MG TABLET 650 MG PO ×3 (05:37→17:50)
[2019-11-13] MEDS: LACTATED RINGERS 1,000 ML 125 ML IV CONT ×3 (05:38→23:59)
[2019-11-13 06:32] LABS: Basophils Absolute Auto 0.1 K/mm3 (0.0-0.1); Basophils Percent Auto 0.2 % (0.2-1.2); Hematocrit 35.7 % (37.0-47.0); Hemoglobin 11.7 g/dL (12.0-15.0); Immature Granulocyte Absolute 0.49 K/mm3 (0.00-0.031); Immature Granulocyte Percent A 1.9 % (0-0.5); Lymphocytes Absolute Auto 0.72 K/mm3 (0.9-3.2); Lymphocytes Percent Auto 2.8 % (18.3-44.2); Mean Corpuscular HGB Conc 32.8 g/dl (32-36); Mean Corpuscular Hemoglobin 25.8 pg (26-34); Mean Corpuscular Volume 78.6 fl (80-100); Mean Platelet Volume 9.8 fl (7.4-10.4); Monocytes Absolute Auto 1.2 K/mm3 (0.1-0.6); Monocytes Percent Auto 4.5 % (2.6-8.5); Neutrophils Absolute Auto 23.2 K/mm3 (1.3-6.7); Neutrophils Percent Auto 90.6 % (45.5-73.1); Platelet Count Result 301 k/mm3 (150-375); Red Blood Count 4.54 M/mm3 (4.2-5.4); Red Cell Distribution Width 17.1 % (11.5-14.5); White Blood Count 25.6 K/mm3 (4.5-10.0)
[2019-11-13 06:49] LABS: Blood Urea Nitrogen 24 mg/dL (7-17); Calcium 8.8 mg/dL (8.4-10.2); Carbon Dioxide 24 mmol/L (22-30); Chloride 97 mmol/L (98-107); Estimated CRCL calculation 44 ml/min; Estimated Glomerular Filt Rate 49; Glucose 137 mg/dL (65-105); Potassium 3.2 mmol/L (3.4-5.0); Sodium 132 mmol/L (137-145)
[2019-11-13 07:47] LABS: Crenated RBC 2+ (NORMAL)
[2019-11-13 07:48] LABS: Ovalocytes 1+ (NORMAL)
[2019-11-13 07:49] LABS: Platelet Estimate Adequate (Adequate)
[2019-11-13] MEDS: POTASSIUM CHLORIDE 20 MEQ TABLET 40 MEQ PO ×2 (08:22→17:50)
[2019-11-13] MEDS: CLOPIDOGREL BISULFATE 75 MG TABLET PO (08:22)
[2019-11-13] MEDS: ASPIRIN 325 MG TABLET PO (08:22)
[2019-11-13] MEDS: METOPROLOL SUCCINATE EXT REL 25 MG TABCR PO (08:22)
[2019-11-13 08:51] LABS: Erythrocyte Sedimentation Rate 70 mm/hr (0-20)
[2019-11-13 09:06] LABS: CRP 42.1 mg/dL (<1.0)
--- NOTE | 2019-11-13 13:59 | PM.IMHP ---
H&P: HPI History of Present Illness Chief complaint: weakness, leukocytosis Narrative: Ana Esquivel is a 74 year old female with a PMH significant for CAD s/p CABG in 2017 and NSTEMI 10/24/19, severe aortic stenosis, HTN, HLD, and GERD who presented to the emergency department with a complaint of generalized weakness, myalgias, and arthralgias since Sunday11/11/19. She was recently admitted 10/21-10/24/2019 for NSTEMI and was treated medically. Her cath showed patent MARSHALL to LAD with SVG to RCA occluded with collaterals to the distal RCA. Echo demonstrated severe aortic stenosis and she reports that she recently had a cardiac CT performed for valve visualization and surgical planning. She reports feeling occasionally shaky. She reports migratory myalgias and arthralgias. She reports a hx of similar symptoms due to statin therapy in the past and believes that her statin was recently changed although it looks like she was on rosuvastatin prior to her last admission and this was continued. Her sx were so severe on Sunday that she fell and stayed on the floor for approximately 2-3 hours. This event prompted her to proceed to the emergency department for further evaluation. At this time, she reports that her left hand feels swollen and is very painful to move. She also reports that her left leg is aching. She reports that her right leg was bothersome yesterday. She has no other specific complaints including no abdominal pain, vomiting, or nausea. She denies chest pain, dyspnea, cough, and palpitations. She denies headaches, lightheadedness, and dizziness. She denies lateralizing weakness, speech change, and vision change. She has no urinary complaints. She denies any new rashes but does note bruising to the lower extremities. Initial workup in the ED revealed WBC markedly elevated at 36,800 with a neutrophil predominance, Hb 13.2, Hct 40.5, sodium 134, potassium 3.6, chloride 95, CO2 26, BUN 32, Cr 1.6, lactic acid 1.6, CK 154, TSH 1.54, UA with 1+ protein, 10-15 WBC, moderate squamous epithelial cells and cellular casts, CXR with mild atelectasis, and CT brain with no acute findings and evidence of an old left frontal focal infarct and small vessel ischemic disease. She met SIRS criteria at admission with leukocytosis and tachycardia. Blood cultures were obtained and are pending. She was treated with IV ceftriaxone x1 dose and vancomycin in the ED and admitted to the hospitalist service for further evaluation and management. Review of Systems Review of Systems: Narrative: Constitutional: Endorses fever and chills. Denies night sweats. Reports generalized weakness and malaise. Reports anorexia and weight loss. Eyes: Denies vision change. No additional eye complaints. ENT: Denies change in hearing, ear pain, sinus congestion, nasal congestion, dysphagia, odynophagia, and sore throat. Cardiovascular: Denies palpitations and chest pain. Denies PND and orthopnea. Denies dyspnea on exertion. Reports intermittent lower extremity edema. Respiratory: Denies cough and shortness of breath. No other respiratory complaints. Gastrointestinal: Denies abdominal pain, nausea, and vomiting. Denies melena and hematochezia. Genitourinary: Denies dysuria, frequency, urgency, and hesitancy. Musculoskeletal: Reports generalized myalgias, arthralgias, and muscle stiffness that are diffuse and intermittent. Skin: Denies lesions and wounds. Neurologic: Denies focal weakness, paresthesias, and speech change. Reports that she has been somewhat confused at times. Psychiatric: Denies mood change. Denies anxiety and depression. Hematologic: Reports easy bruising with bruises on the lower extremities. All systems reviewed & are unremarkable except as noted in HPI and below PMFSH Past Medical History Medical History CAD (coronary artery disease) GERD (gastroesophageal reflux disease) HTN (hypertension) Hyperlipidemia Surgical Hist
--- NOTE | 2019-11-13 14:09 | PM.CNCAR ---
Assessment and Plan Assessment and plan (1) Leukocytosis: Code(s): D72.829 - Elevated white blood cell count, unspecified Status: Acute Assessment and Plan: 74 year-old white woman with history of Coronary Artery Disease s/p CABG (12/01/16, 5 vessel: MARSHALL to mid LAD, reverse saphenous vein graft from aorta to distal LAD, reversed saphenous vein graft from aorta to distal RCA, reverse saphenous vein graft from aorta to OM 2, reverse saphenous vein graft from aorta to diagonal 2, [facility]), status post non ST elevation myocardial infarction (10/24/2019, with left heart catheterization demonstrating occluded right coronary artery and occluded right coronary artery graft, with collateral flow to distal right coronary artery), severe aortic stenosis, hypertension, dyslipidemia, GERD, gout, who is seen in cardiac consultation for fever and leukocytosis, with associated non-ST elevation myocardial infarction. -increased white blood cells in urinalysis noted, with urine and blood cultures pending. She denied dysuria, polyuria, or any change in her urine. -white blood count improving with antibiotic therapy. -obtain transthoracic echo to evaluate for any evidence of valvular vegetation in the setting of her known severe aortic stenosis and presenting fever with leukocytosis, with evaluation for focal wall motion abnormalities in the setting of recurrent non ST elevation myocardial infarction. -if she has positive blood cultures, anticipate need for transesophageal echocardiogram for definitive evaluation of endocarditis in the setting of her severe aortic stenosis with diffuse myalgias and arthralgias. -given the absence of clear infectious source, consider Infectious Disease consultation per the primary service. -consider per the primary service COVID-19 testing given her diffuse myalgias and borderline low lymphocyte count, with an increase in exertional dyspnea in recent weeks. Also she will need COVID-19 testing prior to consideration of any ESTEFANÍA. (2) SIRS (systemic inflammatory response syndrome): Code(s): R65.10 - Systemic inflammatory response syndrome (SIRS) of non-infectious origin without acute organ dysfunction Status: Acute Assessment and Plan: -increased white blood cells in urinalysis noted, with urine and blood cultures pending. -she had fever, leukocytosis, presenting mild sinus tachycardia (102 beats per minute, with subsequent normalization of heart rate), and generalized muscle and joint aches. -evaluation, management, and antibiotic therapy as per primary service. -if she has positive blood cultures, anticipate need for transesophageal echocardiogram for definitive evaluation of endocarditis in the setting of her severe aortic stenosis with diffuse myalgias and arthralgias. -consider per the primary service COVID-19 testing given her diffuse myalgias and borderline low lymphocyte count, with an increase in exertional dyspnea in recent weeks. Also she will need COVID-19 testing prior to consideration of any ESTEFANÍA. (3) Aortic stenosis: Code(s): I35.0 - Nonrheumatic aortic (valve) stenosis Status: Acute Assessment and Plan: -she had evidence of severe aortic stenosis on recent echocardiogram. -Recently, she had 10/23/19 ECHO: Left ventricular systolic function is normal, estimated at 55-60%. There is moderately increased left ventricular wall thickness. There is severe aortic sclerosis. There is severe aortic valve stenosis. The mitral valve has calcified annulus. There is mild mitral valve regurgitation. There is mild mitral valve stenosis. There is mild tricuspid valve regurgitation. Mild pulmonary hypertension, estimated pulmonary arterial systolic pressure is 42 mmHg. -she was planned to have consideration for transcatheter aortic valve replacement at [facility]. She had a recent cardiac CT angiogram 11/10/2019, with results pending, given some infiltration of her IV which m
[2019-11-13 16:56] LABS: Troponin I 0.193 ng/mL (0.000-0.034)
--- NOTE | 2019-11-13 17:21 | PC.NURSE ---
[employer] Office Manager Dr Stubbs notified of elevated troponin levels. Attempted to contact Anne Guardado
[2019-11-13 20:12] LABS: Troponin I 0.181 ng/mL (0.000-0.034)
[2019-11-13] MEDS: PANTOPRAZOLE 40 MG TABLET PO (20:57)
[2019-11-13 23:12] LABS: Troponin I 0.153 ng/mL (0.000-0.034)
[2019-11-14] VITALS (11 sets, daily range): BP systolic 126–146; BP diastolic 58–75; PULSE 68–87; RESP 16–18; TEMP 36.2–36.8; O2SAT 94–98
--- NOTE | 2019-11-14 | ECHOL_ITS ---
Patient Info Name: Ana Esquivel Age: 74 years : 1945 Gender: Female Ht: 66 in Wt: 233 lbs BSA: 2.27 m2 HR: 87 bpm BP: 141 / 66 mmHg Technical Quality: Good Exam Date: 11/14/2019 9:19 AM Exam Location: [facility] Pulmonary Patient Status: Inpatient Admit Date: 11/12/2019 Staff Ordering Physician: Anne Guardado PA-C Dictaphone Transcriber: Mckenzie Martin RDCS Attending Provider: Anne Guardado PA-C Referring Physician: Debby JUNE; Exam Type: CA echo limited Study Info Indications - LIMITED FOR WMA EVAL VALVES R/O ENDOCARDITIS Limited two-dimensional transthoracic echocardiogram is performed. Complete two-dimensional, color flow and Doppler transthoracic echocardiogram is performed. Summary 1. The aortic valve is heavily calcified. No obvious vegetations. 2. The mitral valve has calcified annulus. No obvious vegetations. 3. Left ventricular systolic function is normal, estimated at 55-60%. Left Ventricle Left ventricular systolic function is normal, estimated at 55-60%. There is mildly increased left ventricular wall thickness. Left ventricular septal wall motion is normal. The left ventricular diastolic function is indeterminate. Right Ventricle Right ventricular chamber dimension is normal. Right ventricular systolic function is normal. Left Atria Left atrial chamber dimension is mildly enlarged. Right Atria Right atrial chamber dimension is normal. Aortic Valve There is severe aortic valve stenosis. There is no aortic valve regurgitation. The aortic valve is heavily calcified. No obvious vegetations. Pulmonic Valve The pulmonic valve is not well visualized. No obvious vegetations. There is no pulmonic valve stenosis. There is no pulmonic regurgitation. Mitral Valve The mitral valve has calcified annulus. No obvious vegetations. There is trace mitral valve regurgitation. Tricuspid Valve The tricuspid valve leaflets are normal. No obvious vegetations. There is no significant tricuspid valve stenosis. There is mild tricuspid valve regurgitation. Pericardium/Pleural There is no pericardial effusion. Ventricles Name Value Normal LV Fractional Shortening/Ejection Fraction 2D/MM LV Diastolic Volume (4C MOD) 86 ml LV EF (4C MOD) 61 % LV Diastolic Volume (2C MOD) 64 ml LV EF (2C MOD) 62 % LV Diastolic Volume (BP MOD) 76 ml 46-106 LV Diastolic Volume Index (BP MOD) 34 ml/m2 29-61 LV Systolic Volume (BP MOD) 28 ml 14-42 LV Systolic Volume Index (BP MOD) 13 ml/m2 8-24 LV EF (BP MOD) 63 % 54-74 LV Diastolic Length (4C) 8.2 cm LV Systolic Length (4C) 6.5 cm LV Stroke Volume (4C MOD) 52 ml Report Signatures
[2019-11-14] MEDS: ACETAMINOPHEN 325 MG TABLET 650 MG PO ×2 (02:47→09:36)
[2019-11-14 06:38] LABS: Basophils Percent Auto 0.1 % (0.2-1.2); Eosinophils Percent Auto 0.2 % (0-4.4); Hematocrit 34.7 % (37.0-47.0); Hemoglobin 11.1 g/dL (12.0-15.0); Immature Granulocyte Absolute 0.13 K/mm3 (0.00-0.031); Immature Granulocyte Percent A 0.7 % (0-0.5); Lymphocytes Percent Auto 6.3 % (18.3-44.2); Mean Corpuscular Hemoglobin 25.3 pg (26-34); Mean Corpuscular Volume 79.2 fl (80-100); Mean Platelet Volume 9.7 fl (7.4-10.4); Monocytes Absolute Auto 1.1 K/mm3 (0.1-0.6); Monocytes Percent Auto 6.1 % (2.6-8.5); Neutrophils Absolute Auto 15.1 K/mm3 (1.3-6.7); Neutrophils Percent Auto 86.6 % (45.5-73.1); Platelet Count Result 308 k/mm3 (150-375); Red Blood Count 4.38 M/mm3 (4.2-5.4); Red Cell Distribution Width 17.2 % (11.5-14.5); White Blood Count 17.5 K/mm3 (4.5-10.0)
[2019-11-14 06:50] LABS: Blood Urea Nitrogen 23 mg/dL (7-17); Calcium 8.4 mg/dL (8.4-10.2); Carbon Dioxide 25 mmol/L (22-30); Chloride 103 mmol/L (98-107); Cholesterol 85 mg/dL (0-200); Creatine Kinase 49 U/L (30-135); Estimated CRCL calculation 48 ml/min; Estimated Glomerular Filt Rate 55; Glucose 102 mg/dL (65-105); HDL Direct 10 mg/dL; Potassium 3.8 mmol/L (3.4-5.0); Sodium 135 mmol/L (137-145); Triglycerides 136 mg/dL (<150); Uric Acid 4.6 mg/dL (2.5-7.5)
[2019-11-14 06:52] LABS: Rheumatoid Factor 16.2 IU/ML (<12)
[2019-11-14 07:04] LABS: LDL Cholesterol Direct < 30 mg/dL
--- NOTE | 2019-11-14 08:39 | PM.PNCARD ---
Progress Note: A&P Assessment and Plan (1) Leukocytosis: Qualifiers: Leukocytosis type: bandemia Qualified Code(s): D72.825 - Bandemia Code(s): D72.829 - Elevated white blood cell count, unspecified Status: Acute Assessment and Plan: 74 year-old white woman with history of Coronary Artery Disease s/p CABG, status post non ST elevation myocardial infarction (10/24/2019, with left heart catheterization demonstrating occluded right coronary artery and occluded right coronary artery graft, with collateral flow to distal right coronary artery), severe aortic stenosis, hypertension who is seen in cardiac consultation for fever and leukocytosis Unclear source Urine culture negative. Blood culture pending (negative to date). No COVID testing Limited echo today. May need ESTEFANÍA ID consult . (2) SIRS (systemic inflammatory response syndrome): Code(s): R65.10 - Systemic inflammatory response syndrome (SIRS) of non-infectious origin without acute organ dysfunction Status: Acute Assessment and Plan: -she had fever, leukocytosis, presenting mild sinus tachycardia . -Abx per primary team. No clear source . (3) Aortic stenosis: Qualifiers: Cardiac valve disease etiology: etiology unspecified Qualified Code(s): I35.0 - Nonrheumatic aortic (valve) stenosis Code(s): I35.0 - Nonrheumatic aortic (valve) stenosis Status: Acute Assessment and Plan: -she had evidence of severe aortic stenosis on recent echocardiogram. -she was planned to have consideration for transcatheter aortic valve replacement at [facility]. (4) CAD (coronary artery disease): Qualifiers: Associated angina: without angina Coronary Disease-Associated Artery/Lesion type: bypass graft, other Qualified Code(s): I25.810 - Atherosclerosis of coronary artery bypass graft(s) without angina pectoris Code(s): I25.10 - Atherosclerotic heart disease of [place] coronary artery without angina pectoris Status: Chronic Assessment and Plan: -she has Coronary Artery Disease s/p CABG (12/01/16, 5 vessel: MARSHALL to mid LAD, reverse saphenous vein graft from aorta to distal LAD, reversed saphenous vein graft from aorta to distal RCA, reverse saphenous vein graft from aorta to OM 2, reverse saphenous vein graft from aorta to diagonal 2, [facility]), status post non ST elevation myocardial infarction (10/24/2019). -she was treated medically following left heart catheterization 10/24/2019 which demonstrated patent MARSHALL to the LAD, RCA occluded, saphenous vein graft to the right coronary artery occluded with collaterals to the distal right coronary artery. -continue metoprolol, aspirin, and clopidogrel daily, as per her outpatient regimen. - (5) Acute kidney injury: Code(s): N17.9 - Acute kidney failure, unspecified Status: Acute Assessment and Plan: -resolved with IV fluids (6) Obstructive sleep apnea: Code(s): G47.33 - Obstructive sleep apnea (adult) (pediatric) Status: Acute Assessment and Plan: -patient denies prior testing for obstructive sleep apnea but the patient reports snoring with daytime somnolence. -obtain outpatient sleep study for obstructive sleep apnea pending clinical stabilization. Subjective Date/time seen: 11/14/19 08:39 Feels better overall. Still with myalgias and painful joints. Afebrile this am. Last fever was yesterday morning of 38. Review of Systems Review of Systems: All systems reviewed & are unremarkable except as noted in HPI and below Exam Narrative: Exam Narrative: Exam Narrative: General: Pleasant and well-developed woman who is lying in bed in no acute distress. HEENT: Normocephalic and atraumatic. Sclera anicteric. Conjunctivae and lids normal. PERRL. EOMI. Mucous membranes moist. Posterior pharynx without erythema or exudate. Neck: Supple without lymphadenopathy or masses. Cardiac: Reg
[2019-11-14 09:10] LABS: Transferrin 162 mg/dL (206-381)
[2019-11-14 09:32] LABS: CRP 40.9 mg/dL (<1.0)
[2019-11-14] MEDS: LACTATED RINGERS 1,000 ML 125 ML IV CONT (09:35)
[2019-11-14 09:45] LABS: Iron 24 ug/dL (37-170)
[2019-11-14 09:58] LABS: Percent Iron Saturation 10 % (20-50)
[2019-11-14 11:50] LABS: Folic Acid 4.4 ng/mL (2.76->20)
[2019-11-14] MEDS: METOPROLOL SUCCINATE EXT REL 25 MG TABCR PO (13:01)
[2019-11-14] MEDS: CLOPIDOGREL BISULFATE 75 MG TABLET PO (13:01)
[2019-11-14] MEDS: ASPIRIN 81 MG CHEWABLE TABLET PO (13:02)
--- NOTE | 2019-11-14 13:58 | WPDINFPN2 ---
Progress Note: A&P Assessment and Plan (1) Leukocytosis: Qualifiers: Leukocytosis type: bandemia Qualified Code(s): D72.825 - Bandemia Code(s): D72.829 - Elevated white blood cell count, unspecified Status: Acute Assessment and Plan: leukocytosis and fever REC BCs in process as is coVid assay. No empiric antibacterials. Subjective Date/time seen: 11/14/19 13:58 Objective Data Vital Signs Vital Signs: Vital Signs - 24 hr 11/13/19 14:00 11/13/19 20:00 11/13/19 22:00 Temperature 36.4 C 36.8 C Pulse Rate 82 82 81 Respiratory Rate 18 18 Blood Pressure 129/66 141/66 H Pulse Oximetry 97 95 11/14/19 00:00 11/14/19 04:00 11/14/19 06:00 Temperature 36.2 C L Pulse Rate 77 87 86 Respiratory Rate 18 Blood Pressure 146/75 H Pulse Oximetry 95 11/14/19 13:01 Temperature Pulse Rate 84 Respiratory Rate Blood Pressure Pulse Oximetry Intake/Output Intake/Output: Intake & Output 11/11/19 11/12/19 11/13/19 11/14/19 23:59 23:59 23:59 23:59 Intake Total 2300 4420 1420 Output Total 750 Balance 2300 4420 670 Meds/Results Medications: Active Medications Generic Name Dose Route Start Last Admin Trade Name Freq PRN Reason Stop Dose Admin Acetaminophen 650 mg 11/12/19 19:53 11/14/19 09:36 Tylenol Tablet PO 650 mg Q4H PRN Administration Mild Pain (1-3) or Fever Hydrocodone Bitart/Acetaminophen 1 tab 11/14/19 13:10 [place] 5-325 Mg PO Q6H PRN Pain Rated 8-10 Aspirin 81 mg 11/14/19 09:00 11/14/19 13:02 Aspirin Chewable PO 81 mg DAILY MADELIN Administration Clopidogrel Bisulfate 75 mg 11/13/19 09:00 11/14/19 13:01 Plavix PO 75 mg QAM MADELIN Administration Lactated Ringer's 1,000 mls @ 125 mls/hr 11/12/19 19:55 11/14/19 09:35 Lr - Lactated Ringers Iv IV CONT 125 mls/hr .Q8H MADELIN Administration Metoprolol Succinate 25 mg 11/13/19 09:00 11/14/19 13:01 Toprol Xl PO 25 mg DAILY MADELIN Administration Ondansetron HCl 4 mg 11/12/19 19:53 Zofran Inj IV PUSH Q4H PRN Nausea Pantoprazole Sodium 40 mg 11/13/19 21:00 11/13/19 20:57 Protonix PO 40 mg HS MADELIN Administration Tramadol HCl 25 mg 11/14/19 13:09 11/14/19 13:24 Ultram PO 25 mg Q6H PRN Administration Pain Rated 4-6 Radiology Results: ITS Impressions Head CT 11/12/19 17:07 IMPRESSION: 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 Chest X-Ray 11/12/19 18:18 IMPRESSION: 1. Mild atelectasis in left lower lung zone. Venous Doppler Study 11/13/19 15:13 IMPRESSION: No evidence of deep venous thrombosis of either upper extremity Labs Labs: Laboratory Results - last 24 hr 11/13/19 11/13/19 11/13/19 16:15 19:29 22:30 WBC RBC Hgb Hct MCV MCH MCHC RDW Plt Count MPV Immature Gran % (Auto) Neut % (Auto) Lymph % (Auto) [place] % (Auto) Eos % (Auto) Baso % (Auto) Lymph # (Auto) [place] # (Auto) Eos # (Auto) Baso # (Auto) Abs Immat Gran (auto) Absolute Neuts (auto) Absolute Nucleated RBC Nucleated RBC % Sodium Potassium Chloride Carbon Dioxide BUN Creatinine Estim Creat Clear Calc Estimated GFR Glucose Uric Acid Calcium Magnesium Iron TIBC % Saturation Transferrin Ferritin Total Creatine Kinase Troponin I 0.193 H* 0.181 H* 0.153 H* C-Reactive Protein Triglycerides Cholesterol LDL Cholesterol Direct HDL Direct Vitamin B12 Folate Rheumatoid Factor 11/14/19 11/14/19 11/14/19 06:09 06:09 06:09 WBC 17.5 H RBC 4.38 Hgb 11.1 L Hct 34.7 L MCV 79.2 L MCH 25.[address]
--- NOTE | 2019-11-14 14:40 | PM.IMPN ---
Progress Note: A&P Assessment and Plan (1) SIRS (systemic inflammatory response syndrome): Code(s): R65.10 - Systemic inflammatory response syndrome (SIRS) of non-infectious origin without acute organ dysfunction Status: Acute Assessment and Plan: She met SIRS criteria at admission with leukocytosis and tachycardia. She developed a fever with Tmax 100.4F at 5:37 AM 11/12. She has defervesced. Lactic acid was normal. Blood cultures were ordered and reveal NGTD. She received 1 dose of IV ceftriaxone and then IV vancomycin was initiated in the ED. ID is on board and recommended discontinuation of vancomycin. Appreciate recommendations. There is no clear source for infection at this time. Discontinue IV fluids as she is tolerating PO intake well. Await blood cultures. (2) Polyarthralgia: Code(s): M25.50 - Pain in unspecified joint Status: Acute Assessment and Plan: Etiology is unclear. She has polyarthralgias and myalgias. Differential includes endocarditis/bacteremia, statin-induced myopathy although CK is only mildly elevated and repeat CK was normal today at 49. TTE revealed no obvious evidence of vegetation. Blood cultures reveal NGTD. Additional considerations include a systemic rheumatic disease. Rheumatoid factor was elevated at 16.2. Uric acid was normal. DELORES and HLA-B27 are pending. Will order anti-CCP. ESR and CRP are markedly elevated. Will order PT/OT as well. Await blood cultures. Continue analgesics as needed. (3) Acute kidney injury: Code(s): N17.9 - Acute kidney failure, unspecified Status: Acute Assessment and Plan: Cr was elevated at 1.6 and BUN 32 at admission. This appears to be pre-renal as her renal function improved with IV fluid rehydration. Her Cr/GFR is back to baseline. Avoid nephrotoxic agents and renally dose medications. She also received IV contrast Sunday11/10/19 so she may have a component of contrast induced nephropathy. Discontinue IV fluids as she is tolerating PO intake well. Continue to monitor. (4) Leukocytosis: Qualifiers: Leukocytosis type: bandemia Qualified Code(s): D72.825 - Bandemia Code(s): D72.829 - Elevated white blood cell count, unspecified Status: Acute Assessment and Plan: She had a marked leukocytosis with WBC 36,800 with neutrophil predominance. There is no clear source for infection at this time. Leukocytosis is improving. Differential includes endocarditis. UA appeared contaminated and she has no urinary complaints. CXR was clear and she has no cough, dyspnea, URI sx. TTE had no obvious evidence of endocarditis. Blood cultures reveal NGTD. Appreciate cardiology and ID input. Continue to monitor. (5) Aortic stenosis: Qualifiers: Cardiac valve disease etiology: etiology unspecified Qualified Code(s): I35.0 - Nonrheumatic aortic (valve) stenosis Code(s): I35.0 - Nonrheumatic aortic (valve) stenosis Status: Acute Assessment and Plan: Severe on recent echo 10/23/19. She reports that she had a CT for further evaluation Sunday11/10/19. I will try to request these records. Appreciate cardiology input. (6) CAD (coronary artery disease): Qualifiers: Coronary Disease-Associated Artery/Lesion type: bypass graft, other Associated angina: without angina Qualified Code(s): I25.810 - Atherosclerosis of coronary artery bypass graft(s) without angina pectoris Code(s): I25.10 - Atherosclerotic heart disease of [place] coronary artery without angina pectoris Status: Chronic Assessment and Plan: She had a recent NSTEMI 09/2019 and underwent cardiac cath which showed patent MARSHALL to LAD with SVG to RCA occluded with collaterals to the distal RCA. Medical management was recommended. Continue metoprolol, ASA, and clopidogrel. Resume lisinopril once THAI resolves. Cardiology is on board. Management per cardiology. (7) Hyperlipidemia:
--- NOTE | 2019-11-14 18:52 | CONS_ITS ---
DATE OF CONSULTATION: REASON FOR CONSULTATION: Fever and leukocytosis. HISTORY OF PRESENT ILLNESS: The patient is a 74-year-old female, who has known aortic valve stenosis. She had a CT of the heart performed several days before admission as evaluation for possible AVR. On the way home from the test, she had new onset of pain in both van areas, left initially, then bilateral, later complicated by pain in her hands, other joints, as well as lassitude. She notes no fever. At home, she had shaking sensation, but no true chills nor rigors. She presented to the hospital yesterday and was admitted. She was given ceftriaxone and vancomycin, remains on the latter now. She has had no other recent antibiotics. No immunosuppressants, and no recent infection diagnosis. ALLERGIES: NONE KNOWN. MEDICATIONS: Home medication list reviewed. No immunosuppressants. HABITS: Ex-smoker. Social drinker. PAST MEDICAL HISTORY: Prior CABG, appendectomy, cataract extraction, hypertension, hyperlipidemia, GERD, and the aortic valve stenosis. FAMILY HISTORY: Not pertinent to her present illness. SOCIAL HISTORY: She is , retired, lives locally. No family at the bedside presently. REVIEW OF SYSTEMS: Poor appetite, no loss of taste or smell, edema, dyspnea on exertion. 14-point review otherwise negative. PHYSICAL EXAMINATION: GENERAL: This is an elderly female, who appears her actual age, in no acute distress. VITAL SIGNS: Afebrile currently, T-max of 38.0, 86, 18, 146/75, 95% on room air. SKIN: No generalized rashes. No erythroderma. EENT: The conjunctivae were clear. Pupils equal, round, and reactive to light. The oropharynx, oral mucosa normal. NECK: No adenopathy. She has no stridor. No meningismus. LUNGS: Clear to auscultation and percussion. BACK: No CVAT. CARDIAC: Soft S1, S2. Regular rate and rhythm. No murmurs, gallops, or rubs. Pulses are 1+. ABDOMEN: Nontender, soft. No organomegaly, no masses. EXTREMITIES: 2+ edema of the distal legs, feet, and hands. No cyanosis. LABORATORY DATA: Blood cultures, no growth after very short incubation. White blood cell count on 10/23 was 7.1. On arrival on the was 36.8 and 25.6, today 17.5, hemoglobin 11.1, platelets 308. She has a mild left shift seen on differential automated, her manual diff had 83 PMNs, 13 bands. She has hyponatremia. BUN 23, creatinine 1.0, down from 1.6. Liver function tests are normal. Elevated CPK. CRP 41. Her urinalysis reviewed, not suggestive of infection. RADIOLOGY: Chest x-ray with atelectasis. ASSESSMENT: 1. Fever and leukocytosis, several days duration of myalgias and arthralgias as well with edema. COVID infection is in the differential diagnosis. Bloodstream infection is also possible. I doubt urinary tract infection or other community-acquired pathogens. 2. Aortic valve stenosis. 3. Hyponatremia. RECOMMENDATIONS: 1. Await assay for COVID. 2. Blood cultures are also in process. 3. No empiric antibiotics are indicated. 4. Follow up white blood cell count and exam over time. Thank you very much for asking me to see her. ELIZABETH MICHELLE M.D. IMPORT AND EXPORT CLERK IMPORT AND EXPORT CLERK D I MT: Mercedes
[2019-11-14] MEDS: PANTOPRAZOLE 40 MG TABLET PO (21:08)
[2019-11-14] MEDS: ENOXAPARIN 40 MG/0.4 ML SYRINGE SUB-Q (21:08)
[2019-11-15] VITALS (10 sets, daily range): BP systolic 132–143; BP diastolic 67–74; PULSE 77–91; RESP 18; TEMP 36.6–37.2; O2SAT 96–98
[2019-11-15 06:38] LABS: Basophils Percent Auto 0.2 % (0.2-1.2); Eosinophils Absolute Auto 0.2 K/mm3 (0-0.3); Eosinophils Percent Auto 1.5 % (0-4.4); Hematocrit 34.3 % (37.0-47.0); Hemoglobin 10.8 g/dL (12.0-15.0); Immature Granulocyte Absolute 0.09 K/mm3 (0.00-0.031); Immature Granulocyte Percent A 0.8 % (0-0.5); Lymphocytes Absolute Auto 1.41 K/mm3 (0.9-3.2); Lymphocytes Percent Auto 12.2 % (18.3-44.2); Mean Corpuscular HGB Conc 31.5 g/dl (32-36); Mean Corpuscular Hemoglobin 24.8 pg (26-34); Mean Corpuscular Volume 78.7 fl (80-100); Mean Platelet Volume 9.5 fl (7.4-10.4); Monocytes Percent Auto 8.4 % (2.6-8.5); Neutrophils Absolute Auto 8.9 K/mm3 (1.3-6.7); Neutrophils Percent Auto 76.9 % (45.5-73.1); Platelet Count Result 329 k/mm3 (150-375); Red Blood Count 4.36 M/mm3 (4.2-5.4); Red Cell Distribution Width 17.4 % (11.5-14.5); White Blood Count 11.6 K/mm3 (4.5-10.0)
[2019-11-15 07:30] LABS: Blood Urea Nitrogen 22 mg/dL (7-17); CRP 25.7 mg/dL (<1.0); Carbon Dioxide 25 mmol/L (22-30); Chloride 101 mmol/L (98-107); Estimated CRCL calculation 59 ml/min; Estimated Glomerular Filt Rate > 60; Glucose 119 mg/dL (65-105); Potassium 3.7 mmol/L (3.4-5.0); Sodium 133 mmol/L (137-145)
[2019-11-15 08:13] LABS: Hepatitis B Surface Antigen Negative (Negative)
[2019-11-15 08:19] LABS: HAV RESULT Negative (Negative); Hepatitis B Core IgM Result Negative (Negative)
[2019-11-15 08:30] LABS: Hepatitis C Virus Antibody Negative (Negative)
[2019-11-15] MEDS: METOPROLOL SUCCINATE EXT REL 25 MG TABCR PO (08:43)
[2019-11-15] MEDS: ASPIRIN 81 MG CHEWABLE TABLET PO (08:43)
[2019-11-15] MEDS: CLOPIDOGREL BISULFATE 75 MG TABLET PO (08:43)
--- NOTE | 2019-11-15 12:47 | PM.IMPN ---
Progress Note: A&P Assessment and Plan (1) SIRS (systemic inflammatory response syndrome): Code(s): R65.10 - Systemic inflammatory response syndrome (SIRS) of non-infectious origin without acute organ dysfunction Status: Acute Assessment and Plan: She met SIRS criteria at admission with leukocytosis and tachycardia. She developed a fever with Tmax 100.4F at 5:37 AM 11/12. She has defervesced. Lactic acid was normal. Blood cultures were ordered and reveal NGTD. She received 1 dose of IV ceftriaxone and then IV vancomycin was initiated in the ED. Infectious disease is on board and recommended discontinuation of vancomycin. Appreciate recommendations. There is no clear source for infection at this time. Await blood cultures. (2) Polyarthralgia: Code(s): M25.50 - Pain in unspecified joint Status: Acute Assessment and Plan: Etiology is unclear. She has polyarthralgias and myalgias. Differential includes endocarditis/bacteremia, statin-induced myopathy although CK is only mildly elevated and repeat CK was normal today at 49. TTE revealed no obvious evidence of vegetation. Blood cultures reveal NGTD. Additional considerations include a systemic rheumatic disease. Rheumatoid factor was elevated at 16.2. Uric acid was normal. DELORES and HLA-B27 are pending. Anti-CCP is pending. ESR markedly elevated at 70. CRP elevated at 42.1 and trending down. Await blood cultures. If blood cultures are negative, she will need to follow-up with rheumatology. Continue analgesics as needed. (3) Acute kidney injury: Code(s): N17.9 - Acute kidney failure, unspecified Status: Acute Assessment and Plan: Cr was elevated at 1.6 and BUN 32 at admission. This appears to be pre-renal as her renal function improved with IV fluid rehydration. Her Cr/GFR is back to baseline. Avoid nephrotoxic agents and renally dose medications. She also received IV contrast Sunday11/10/19 so she may have a component of contrast induced nephropathy. Discontinue IV fluids as she is tolerating PO intake well. Continue to monitor. (4) Leukocytosis: Qualifiers: Leukocytosis type: bandemia Qualified Code(s): D72.825 - Bandemia Code(s): D72.829 - Elevated white blood cell count, unspecified Status: Acute Assessment and Plan: She had a marked leukocytosis with WBC 36,800 with neutrophil predominance at presentation. There is no clear source for infection at this time. Leukocytosis continues to improve. Differential includes endocarditis. Final urine culture was negative. CXR was clear and she has no cough, dyspnea, URI sx. TTE had no obvious evidence of endocarditis. Blood cultures reveal NGTD. Appreciate cardiology and infectious disease input. Await final blood cultures. (5) Aortic stenosis: Qualifiers: Cardiac valve disease etiology: etiology unspecified Qualified Code(s): I35.0 - Nonrheumatic aortic (valve) stenosis Code(s): I35.0 - Nonrheumatic aortic (valve) stenosis Status: Acute Assessment and Plan: Severe on recent echo 10/23/19. She reports that she had a CT for further evaluation Sunday11/10/19. Management per cardiology. (6) CAD (coronary artery disease): Qualifiers: Coronary Disease-Associated Artery/Lesion type: bypass graft, other Associated angina: without angina Qualified Code(s): I25.810 - Atherosclerosis of coronary artery bypass graft(s) without angina pectoris Code(s): I25.10 - Atherosclerotic heart disease of [place] coronary artery without angina pectoris Status: Chronic Assessment and Plan: She had a recent NSTEMI 09/2019 and underwent cardiac cath which showed patent MARSHALL to LAD with SVG to RCA occluded with collaterals to the distal RCA. Medical management was recommended. Continue metoprolol, ASA, and clopidogrel. Resume lisinopril once THAI resolves. Cardiology is on board. Management per cardiology.
[2019-11-15 14:20] LABS: SARS-CoV-2 RNA PCR Negative
[2019-11-15] MEDS: FUROSEMIDE 20 MG TABLET PO (14:55)
[2019-11-15] MEDS: PANTOPRAZOLE 40 MG TABLET PO (20:58)
[2019-11-15] MEDS: ENOXAPARIN 40 MG/0.4 ML SYRINGE SUB-Q (21:05)
[2019-11-16] VITALS (10 sets, daily range): BP systolic 135–148; BP diastolic 67–74; PULSE 80–93; RESP 18–20; TEMP 37.1–37.2; O2SAT 95–98
[2019-11-16 06:27] LABS: Basophils Percent Auto 0.4 % (0.2-1.2); Eosinophils Absolute Auto 0.3 K/mm3 (0-0.3); Eosinophils Percent Auto 3.3 % (0-4.4); Hematocrit 32.3 % (37.0-47.0); Hemoglobin 10.4 g/dL (12.0-15.0); Immature Granulocyte Absolute 0.09 K/mm3 (0.00-0.031); Immature Granulocyte Percent A 1.2 % (0-0.5); Lymphocytes Absolute Auto 1.49 K/mm3 (0.9-3.2); Lymphocytes Percent Auto 19.6 % (18.3-44.2); Mean Corpuscular HGB Conc 32.2 g/dl (32-36); Mean Corpuscular Hemoglobin 25.2 pg (26-34); Mean Corpuscular Volume 78.4 fl (80-100); Mean Platelet Volume 8.8 fl (7.4-10.4); Monocytes Absolute Auto 0.8 K/mm3 (0.1-0.6); Monocytes Percent Auto 10.1 % (2.6-8.5); Neutrophils Percent Auto 65.4 % (45.5-73.1); Platelet Count Result 334 k/mm3 (150-375); Red Blood Count 4.12 M/mm3 (4.2-5.4); Red Cell Distribution Width 17.7 % (11.5-14.5); White Blood Count 7.6 K/mm3 (4.5-10.0)
[2019-11-16 07:03] LABS: Blood Urea Nitrogen 20 mg/dL (7-17); Calcium 7.9 mg/dL (8.4-10.2); Carbon Dioxide 27 mmol/L (22-30); Chloride 102 mmol/L (98-107); Estimated CRCL calculation 59 ml/min; Estimated Glomerular Filt Rate > 60; Glucose 111 mg/dL (65-105); Potassium 3.7 mmol/L (3.4-5.0); Sodium 135 mmol/L (137-145)
[2019-11-16] MEDS: CLOPIDOGREL BISULFATE 75 MG TABLET PO (09:25)
[2019-11-16] MEDS: METOPROLOL SUCCINATE EXT REL 25 MG TABCR PO (09:26)
[2019-11-16] MEDS: ASPIRIN 81 MG CHEWABLE TABLET PO (09:26)
--- NOTE | 2019-11-16 15:13 | PM.IMPN ---
Progress Note: A&P Assessment and Plan (1) SIRS (systemic inflammatory response syndrome): Code(s): R65.10 - Systemic inflammatory response syndrome (SIRS) of non-infectious origin without acute organ dysfunction Status: Acute Assessment and Plan: She met SIRS criteria at admission with leukocytosis and tachycardia. She developed a fever with Tmax 100.4F at 5:37 AM 11/12. She has been afebrile for 72 hours. Lactic acid was normal. Blood cultures were ordered and reveal NGTD. She received 1 dose of IV ceftriaxone and then IV vancomycin was initiated in the ED. Infectious disease is on board and recommended discontinuation of vancomycin. Appreciate recommendations. There is no clear source for infection at this time. Await blood cultures. (2) Polyarthralgia: Code(s): M25.50 - Pain in unspecified joint Status: Acute Assessment and Plan: Etiology is unclear. She has polyarthralgias and myalgias. Differential includes endocarditis/bacteremia, statin-induced myopathy although CK is only mildly elevated and repeat CK was normal today at 49. TTE revealed no obvious evidence of vegetation. Blood cultures reveal NGTD. Additional considerations include a systemic rheumatic disease. Rheumatoid factor was elevated at 16.2. Uric acid was normal. DELORES and HLA-B27 are pending. Anti-CCP is pending. ESR was markedly elevated at 70 at presentation. CRP was 42.1 and continues to trend down to 17 today. 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 Await final blood cultures. If blood cultures are negative, she will need to follow-up with rheumatology. Continue analgesics as needed. (3) Acute kidney injury: Code(s): N17.9 - Acute kidney failure, unspecified Status: Acute Assessment and Plan: Cr was elevated at 1.6 and BUN 32 at admission. This appears to be pre-renal as her renal function improved with IV fluid rehydration. Her Cr/GFR is back to baseline. Avoid nephrotoxic agents and renally dose medications. She also received IV contrast Sunday11/10/19 so she may have a component of contrast induced nephropathy. IV fluids were discontinued as he is tolerating PO intake well. Continue to monitor. (4) Leukocytosis: Qualifiers: Leukocytosis type: bandemia Qualified Code(s): D72.825 - Bandemia Code(s): D72.829 - Elevated white blood cell count, unspecified Status: Resolved Assessment and Plan: Resolved. WBC is normal at 7,600. She had a marked leukocytosis with WBC 36,800 with neutrophil predominance at presentation. There is no clear source for infection. Differential includes endocarditis. Final urine culture was negative. CXR was clear and she has no cough, dyspnea, URI sx. TTE had no obvious evidence of endocarditis. Blood cultures reveal NGTD. Appreciate cardiology and infectious disease input. Await final blood cultures. (5) Aortic stenosis: Qualifiers: Cardiac valve disease etiology: etiology unspecified Qualified Code(s): I35.0 - Nonrheumatic aortic (valve) stenosis Code(s): I35.0 - Nonrheumatic aortic (valve) stenosis Status: Acute Assessment and Plan: Severe on recent echo 10/23/19. She reports that she had a CT for further evaluation Sunday11/10/19. Management per cardiology. (6) CAD (coronary artery disease): Qualifiers: Coronary Disease-Associated Artery/Lesion type: bypass graft, other Associated angina: without angina Qualified Code(s): I25.810 - Atherosclerosis of coronary artery bypass graft(s) without angina pectoris Code(s): I25.10 - Atherosclerotic heart disease of [place] coronary artery without angina pectoris Status: Chronic Assessment and Plan: She had a recent NSTEMI 09/2019 and underwent cardiac cath which showed patent MARSHALL to LAD with SVG
[2019-11-16] MEDS: FUROSEMIDE 40 MG TABLET PO (18:18)
[2019-11-16] MEDS: PANTOPRAZOLE 40 MG TABLET PO (21:57)
[2019-11-16] MEDS: DOCUSATE SODIUM 100 MG CAPSULE PO (21:57)
[2019-11-16] MEDS: ENOXAPARIN 40 MG/0.4 ML SYRINGE SUB-Q (21:58)
[2019-11-17] VITALS (7 sets, daily range): BP systolic 127–130; BP diastolic 62–71; PULSE 63–84; RESP 16–20; TEMP 36.6–36.7; O2SAT 95–96
[2019-11-17 06:08] LABS: Hematocrit 32.2 % (37.0-47.0); Hemoglobin 10.2 g/dL (12.0-15.0); Mean Corpuscular HGB Conc 31.7 g/dl (32-36); Mean Corpuscular Hemoglobin 25.5 pg (26-34); Mean Corpuscular Volume 80.5 fl (80-100); Mean Platelet Volume 9.1 fl (7.4-10.4); Platelet Count Result 354 k/mm3 (150-375); Red Cell Distribution Width 17.8 % (11.5-14.5); White Blood Count 7.4 K/mm3 (4.5-10.0)
[2019-11-17 06:29] LABS: Blood Urea Nitrogen 19 mg/dL (7-17); Calcium 8.2 mg/dL (8.4-10.2); Carbon Dioxide 28 mmol/L (22-30); Chloride 101 mmol/L (98-107); Estimated CRCL calculation 53 ml/min; Estimated Glomerular Filt Rate > 60; Glucose 109 mg/dL (65-105); Magnesium 2.1 mg/dL (1.6-2.3); Potassium 3.7 mmol/L (3.4-5.0); Sodium 135 mmol/L (137-145)
--- NOTE | 2019-11-17 08:28 | WPDINFPN2 ---
Progress Note: A&P Assessment and Plan (1) Leukocytosis: Qualifiers: Leukocytosis type: bandemia Qualified Code(s): D72.825 - Bandemia Code(s): D72.829 - Elevated white blood cell count, unspecified Status: Resolved Assessment and Plan: 1. leukocytosis and fever, all resolved, no new signs nor symptoms. All micro negative. ?viral 2. R hand edema, xray = DJD REC Ok discharge, clinical f/u with primary MD, discussed, no empiric antibiotics. Subjective Date/time seen: 11/17/19 08:28 Interval history: hand swelling on right persists. No diarrhea rash n/v anorexia Exam Narrative: Exam Narrative: afebrile x 4 days Const: General: no acute distress Eyes: General: appearance normal, both eyes and all related structures Resp: Effort & Inspection: normal respiratory effort Auscultation: clear to auscultation bilaterally Cardio: Rate: regular rate Rhythm: regular rhythm Heart sounds: no gallops and no rubs Other: grade 1 / 6 soft harsh early sys murmur at LUSB GI: Inspection: non-distended GI Palp: Yes Soft to palpation, No Tenderness to palpation present (GI) and No Guarding due to palpation present (GI) Skin: General skin exam: no rashes or lesions noted Extrem: Right upper extremity: edema Objective Data Vital Signs Vital Signs: Vital Signs - 24 hr 11/16/19 09:26 11/16/19 12:00 11/16/19 14:00 Temperature 37.1 C Pulse Rate 86 87 84 Respiratory Rate 20 Blood Pressure 135/74 Pulse Oximetry 98 11/16/19 16:00 11/16/19 20:00 11/16/19 22:00 Temperature 37.2 C Pulse Rate 80 93 85 Respiratory Rate 20 Blood Pressure 148/67 H Pulse Oximetry 96 11/17/19 00:00 11/17/19 04:00 11/17/19 06:00 Temperature 36.6 C Pulse Rate 84 79 72 Respiratory Rate 20 Blood Pressure 127/62 Pulse Oximetry 96 Intake/Output Intake/Output: Intake & Output 11/14/19 11/15/19 11/16/19 11/17/19 23:59 23:59 23:59 23:59 Intake Total 2520 1620 1910 520 Output Total 1550 1800 1700 400 Balance 970 -180 210 120 Meds/Results Medications: Active Medications Generic Name Dose Route Start Last Admin Trade Name Freq PRN Reason Stop Dose Admin Acetaminophen 650 mg 11/12/19 19:53 11/14/19 09:36 Tylenol Tablet PO 650 mg Q4H PRN Administration Mild Pain (1-3) or Fever Hydrocodone Bitart/Acetaminophen 1 tab 11/14/19 13:10 11/17/19 03:35 [place] 5-325 Mg PO 1 tab Q6H PRN Administration Pain Rated 8-10 Aspirin 81 mg 11/14/19 09:00 11/16/19 09:26 Aspirin Chewable PO 81 mg DAILY MADELIN Administration Clopidogrel Bisulfate 75 mg 11/13/19 09:00 11/16/19 09:25 Plavix PO 75 mg QAM MADELIN Administration Docusate Sodium 100 mg 11/16/19 21:00 11/16/19 21:57 Colace Capsule PO 100 mg Q12HR MADELIN Administration Enoxaparin Sodium 40 mg 11/14/19 21:00 11/16/19 21:58 Lovenox SUB-Q 40 mg HS MADELIN Administration Furosemide 20 mg 11/17/19 09:00 Lasix Tablet PO DAILY MADELIN Hydrochlorothiazide 12.5 mg 11/17/19 09:00 Hydrochlorothiazide PO QAM MADELIN Lisinopril 10 mg 11/17/19 09:00 Prinivil PO DAILY MADELIN Metoprolol Succinate 25 mg 11/13/19 09:00 11/16/19 09:26 Toprol Xl PO 25 mg DAILY MADELIN Administration Ondansetron HCl 4 mg 11/12/19 19:53 Zofran Inj IV PUSH Q4H PRN Nausea Pantoprazole Sodium 40 mg 11/13/19 21:00 11/16/19 21:57 Protonix PO 40 mg HS MADELIN Administration Polyethylene Glycol 17 gm 11/16/19 15:57 Miralax PO QAM PRN Constipation Tramadol HCl 25 mg 11/14/19 13:09 11/16/19 22:04 Ultram PO 25 mg Q6H PRN Administration Pain Rated 4-6 Radiology Results: ITS Impressions Head CT 11/12/19 17:07 IMPRESSION: 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
[2019-11-17] MEDS: FUROSEMIDE 20 MG TABLET PO ×2 (09:30→13:42)
[2019-11-17] MEDS: DOCUSATE SODIUM 100 MG CAPSULE PO (09:30)
[2019-11-17] MEDS: METOPROLOL SUCCINATE EXT REL 25 MG TABCR PO (09:31)
[2019-11-17] MEDS: hydroCHLOROthiazide 12.5 MG CAPSULE PO (09:31)
[2019-11-17] MEDS: ASPIRIN 81 MG CHEWABLE TABLET PO (09:32)
[2019-11-17] MEDS: CLOPIDOGREL BISULFATE 75 MG TABLET PO (09:32)
[2019-11-17] MEDS: lisinopriL 10 MG TABLET PO (09:32)
--- NOTE | 2019-11-17 11:09 | PM.DS ---
DS: Admitting Diagnosis Admitting Diagnosis Admitting Diagnosis: Systemic inflammatory response syndrome (SIRS) of non-infectious origin without acute organ dysfunction DS: Discharge Diagnosis Discharge Diagnosis (1) SIRS (systemic inflammatory response syndrome): Code(s): R65.10 - Systemic inflammatory response syndrome (SIRS) of non-infectious origin without acute organ dysfunction Status: Acute (2) Polyarthralgia: Code(s): M25.50 - Pain in unspecified joint Status: Acute (3) Acute kidney injury: Code(s): N17.9 - Acute kidney failure, unspecified Status: Acute (4) Leukocytosis: Qualifiers: Leukocytosis type: bandemia Qualified Code(s): D72.825 - Bandemia Code(s): D72.829 - Elevated white blood cell count, unspecified Status: Resolved Assessment and Plan: (5) Aortic stenosis: Qualifiers: Cardiac valve disease etiology: etiology unspecified Qualified Code(s): I35.0 - Nonrheumatic aortic (valve) stenosis Code(s): I35.0 - Nonrheumatic aortic (valve) stenosis Status: Acute (6) CAD (coronary artery disease): Qualifiers: Associated angina: without angina Coronary Disease-Associated Artery/Lesion type: bypass graft, other Qualified Code(s): I25.810 - Atherosclerosis of coronary artery bypass graft(s) without angina pectoris Code(s): I25.10 - Atherosclerotic heart disease of [place] coronary artery without angina pectoris Status: Chronic (7) Hyperlipidemia: Qualifiers: Hyperlipidemia type: unspecified Qualified Code(s): E78.5 - Hyperlipidemia, unspecified Code(s): E78.5 - Hyperlipidemia, unspecified Status: Chronic (8) HTN (hypertension): Qualifiers: Hypertension type: essential hypertension Qualified Code(s): I10 - Essential (primary) hypertension Code(s): I10 - Essential (primary) hypertension Status: Chronic (9) GERD (gastroesophageal reflux disease): Qualifiers: Esophagitis presence: without esophagitis Qualified Code(s): K21.9 - Gastro-esophageal reflux disease without esophagitis Code(s): K21.9 - Gastro-esophageal reflux disease without esophagitis Status: Acute (10) Snoring: Code(s): R06.83 - Snoring Status: Acute Assessment and Plan: Apnea link revealed a high probability of a pathological breathing disorder. I discussed this with the patient. She will need a formal outpatient sleep study arranged by her PCP. DS: Summary Hospital Course Reason for hospitalization: Ana Esquivel is a 74 year old female with a PMH significant for CAD s/p CABG in 2017 and NSTEMI 10/24/19, severe aortic stenosis, HTN, HLD, and GERD who presented to the emergency department with a complaint of generalized weakness, myalgias, and arthralgias since Sunday11/11/19. She was recently admitted 10/21-10/24/2019 for NSTEMI and was treated medically. She reported migratory myalgias/arthralgias with similar sx in the past due to statin therapy. Her sx including pain and generalized weakness were so severe on Sunday that she fell and stayed on the floor for approximately 2-3 hours. This event prompted her to proceed to the emergency department for further evaluation. Initial workup in the ED revealed WBC markedly elevated at 36,800 with a neutrophil predominance, Hb 13.2, Hct 40.5, sodium 134, potassium 3.6, chloride 95, CO2 26, BUN 32, Cr 1.6, lactic acid 1.6, CK 154, TSH 1.54, UA with 1+ protein, 10-15 WBC, moderate squamous epithelial cells and cellular casts, CXR with mild atelectasis, and CT brain with no acute findings and evidence of an old left frontal focal infarct and small vessel ischemic disease. She met SIRS criteria at admission with leukocytosis and tachycardia. Blood cultures were obtained and reveal NGTD. She was treated with IV ceftriaxone x1 dose and vancomycin in the ED and admitted to the hospitalist service for [facility]
--- NOTE | 2019-11-17 14:21 | PM.PNCARD ---
Progress Note: A&P Assessment and Plan (1) Leukocytosis: Qualifiers: Leukocytosis type: bandemia Qualified Code(s): D72.825 - Bandemia Code(s): D72.829 - Elevated white blood cell count, unspecified Status: Resolved Assessment and Plan: 74 year-old white woman with history of Coronary Artery Disease s/p CABG, status post non ST elevation myocardial infarction (10/24/2019, with left heart catheterization demonstrating occluded right coronary artery and occluded right coronary artery graft, with collateral flow to distal right coronary artery), severe aortic stenosis, hypertension, who is seen in cardiac consultation for fever and leukocytosis. Unclear source. Urine culture negative. Blood cultures negative. No COVID testing. Limited echo this admission with normal left ventricular ejection fraction and no evidence of valvular vegetations. May need ESTFEANÍA as an outpatient prior to TAVR. ID consult . (2) SIRS (systemic inflammatory response syndrome): Code(s): R65.10 - Systemic inflammatory response syndrome (SIRS) of non-infectious origin without acute organ dysfunction Status: Acute Assessment and Plan: -she had fever, leukocytosis, presenting mild sinus tachycardia. -No clear source. -patient had resolution of leukocytosis and fever. -she was seen by infectious disease service. (3) Aortic stenosis: Qualifiers: Cardiac valve disease etiology: etiology unspecified Qualified Code(s): I35.0 - Nonrheumatic aortic (valve) stenosis Code(s): I35.0 - Nonrheumatic aortic (valve) stenosis Status: Acute Assessment and Plan: -she had evidence of severe aortic stenosis on recent echocardiogram. -she was planned to have consideration for transcatheter aortic valve replacement at [facility]. - for her bilateral lower extremity edema and right arm edema, possibly worsened by her severe aortic stenosis with associated congestive heart failure, recommend outpatient evaluation for obstructive sleep apnea and leg elevation, compression stockings, with sodium restriction. For her asymmetric right distal arm edema, she had upper extremity venous Doppler this admission which was negative for DVT. She is scheduled to see a commercial assistant for her diffuse joint swelling. Continue her outpatient hydrochlorothiazide and Lasix, with consideration of increased Lasix dosing as an outpatient if conservative measures do not improve her edema, with careful monitoring of renal function and electrolytes given her presenting acute renal failure. She is to call the cardiology office if she has a 4 lb weight gain in the coming days. (4) CAD (coronary artery disease): Qualifiers: Associated angina: without angina Coronary Disease-Associated Artery/Lesion type: bypass graft, other Qualified Code(s): I25.810 - Atherosclerosis of coronary artery bypass graft(s) without angina pectoris Code(s): I25.10 - Atherosclerotic heart disease of [place] coronary artery without angina pectoris Status: Chronic Assessment and Plan: -she has Coronary Artery Disease s/p CABG (12/01/16, 5 vessel: MARSHALL to mid LAD, reverse saphenous vein graft from aorta to distal LAD, reversed saphenous vein graft from aorta to distal RCA, reverse saphenous vein graft from aorta to OM 2, reverse saphenous vein graft from aorta to diagonal 2, [facility]), status post non ST elevation myocardial infarction (10/24/2019). -she was treated medically following left heart catheterization 10/24/2019 which demonstrated patent MARSHALL to the LAD, RCA occluded, saphenous vein graft to the right coronary artery occluded with collaterals to the distal right coronary artery. -continue metoprolol, aspirin, and clopidogrel daily, as per her outpatient regimen. (5) Acute kidney injury: Code(s): N17.9 - Acute kidney failure, unspecified Status: Acute Assessment and Plan: -resolved wi
[2019-11-19 10:32] LABS: HLA B27 Negative (Negative)
[2019-11-20 11:21] LABS: Anti Cyclic Citrullinated Pept <16 Units (<20)
== END 2019-11-17 16:16 | disposition home or self-care (01) | DRG 682 ==
LOC: ANHED 19:59 → ANH3MEDSUR 11-13 06:58
PROVIDERS: Internal Medicine Cardiovascular Disease; Admitting Provider Family Medicine; Emergency Provider Emergency Medicine; PCP Family Medicine Adolescent Medicine; Visit Provider Physician Assistant
DX: N17.9 Acute kidney failure, unspecified (principal); I21.4 Non-ST elevation (NSTEMI) myocardial infarction; R65.10 Systemic inflammatory response syndrome (SIRS) of non-infectious origin without acute organ dysfunction; E87.1 Hypo-osmolality and hyponatremia; I25.10 Atherosclerotic heart disease of native coronary artery without angina pectoris; E78.5 Hyperlipidemia, unspecified; I35.0 Nonrheumatic aortic (valve) stenosis; M25.50 Pain in unspecified joint; Z20.828 Contact with and (suspected) exposure to other viral communicable diseases
CPT/HCPCS: 36415; 70450; 71046; 73130; 80048; 80053; 80061; 80074; 81001; 82550; 82607; 82728; 82746; 83540; 83550; 83605; 83735; 83874; 84443; 84466; 84484; 84550; 85025; 85027; 85652; 86038; 86140; 86200; 86430; 86812; 87040; 87086; 87635; 93005; 93308; 93970; 94762; 96361; 96365; 96367; 97110; 97116; 97162; 97166; 97530; 97535; 99285; A9270; C9803; J0696; J1650; J3370; J7120; U0003

== ENCOUNTER 2019-11-25 00:22 | Outpatient (CLI) | payer MEDICARE, SELFPAY ==
[2019-11-25 17:56] LABS: SARS-CoV-2 RNA PCR Negative
== END 2019-11-25 00:23 | disposition home or self-care (01) ==
LOC: ANHCOVIDDT 00:23
PROVIDERS: PCP Family Medicine Adolescent Medicine; Visit Provider Specialist
DX: Z01.812 Encounter for preprocedural laboratory examination (principal); Z11.59 Encounter for screening for other viral diseases
CPT/HCPCS: 87635; C9803; U0003

== ENCOUNTER 2019-11-27 05:39 | Day surgery (SDC) | payer MEDICARE, SELFPAY ==
[2019-11-26 13:45] VITALS: BMI 29.2
[2019-11-27] VITALS (9 sets, daily range): BP systolic 105–150; BP diastolic 57–66; PULSE 66–70; RESP 13–25; TEMP 36.5–36.9; O2SAT 95–100; BMI 27.3
--- NOTE | 2019-11-27 | ECHO_ITS ---
Patient Info Name: Ana Esquivel Age: 74 years : 1945 Gender: Female Ht: 66 in Wt: 169 lbs BSA: 1.91 m2 HR: 66 bpm Technical Quality: Good Exam Date: 11/27/2019 1:00 PM Exam Location: [facility] Patient Status: Outpatient Admit Date: 11/27/2019 Staff Ordering Physician: Ben Villalta MD Electronic Test Technician: Sabas Villafana, EFRAIN, RT Attending Provider: Ben Villalta MD Exam Type: CA echo transesophageal Study Info Indications I35.0 - Nonrheumatic aortic (valve) stenosis Complete two-dimensional, color flow and Doppler transesophageal study is performed. Summary 1. There is severe aortic valve sclerosis. 2. There is severe aortic valve stenosis. Left Ventricle Left ventricular chamber dimension is normal. Left ventricular systolic function is normal with an ejection fraction by Biplane Method of Discs of 60 %. There is mildly increased left ventricular wall thickness. Left ventricular septal wall motion is normal. The left ventricular diastolic function is normal. Right Ventricle Right ventricular chamber dimension is normal. Right ventricular systolic function is normal. Left Atria Left atrial chamber dimension is mildly enlarged. Right Atria Right atrial chamber dimension is normal. Aortic Valve The aortic valve is trileaflet. There is severe aortic valve sclerosis. There is severe aortic valve stenosis. There is trace aortic valve regurgitation. Pulmonic Valve The pulmonic valve is normal. There is no pulmonic valve stenosis. There is no pulmonic regurgitation. Mitral Valve The mitral valve has normal leaflets. There is no mitral valve stenosis. There is no mitral valve regurgitation. Tricuspid Valve The tricuspid valve leaflets are normal. There is no significant tricuspid valve stenosis. There is no tricuspid valve regurgitation. Pericardium/Pleural The pericardium appears normal. There is Empty pericardial effusion. Inferior Vena Cava Normal inferior vena cava with <50% collapse upon inspiration consistent with Empty right atrial pressure, Empty. Aorta The aortic root size at the sinus of Valsalva is normal. The prox ascending aorta size is normal. Ventricles Name Value Normal LV Fractional Shortening/Ejection Fraction 2D/MM LV EF (BP MOD) 60 % 54-74 Report Signatures
--- NOTE | 2019-11-27 12:09 | SUR.PREOP ---
Pt. presents to pre-operative area with complaints of nausea and weakness. Per patient's daughter, Flaquita, pt. has been experiencing weakness and nausea since yesterday. Pt. noted to have equal strength in all extremities. Pt. transferred to bed and placed on monitor. Vital signs stable. Pt. reports that her nausea has subsided since resting in bed. MD Villalta made aware. No new orders at this time. Will continue to monitor.
--- NOTE | 2019-11-27 13:15 | WPDMODSED ---
Moderate Sedation Note-Pt Data Patient Data Allergies Allergy/AdvReac Type Severity Reaction Status Date / Time No Known Allergies Allergy Verified 11/12/19 16:17 Home Medications Medication Instructions Recorded Confirmed Type lisinopril-hydrochlorothiazide 1 tablet PO DAILY 10/22/19 11/26/19 History metoprolol succinate 25 mg PO DAILY 10/22/19 11/26/19 History pantoprazole 40 mg PO HS 10/22/19 11/26/19 History rosuvastatin 10 mg PO HS 10/22/19 11/26/19 History clopidogrel 75 mg PO QAM #30 tablet 10/24/19 11/26/19 Rx tramadol 50 mg PO Q6H PRN #14 tablet 11/17/19 11/26/19 Rx furosemide 20 mg PO DAILY 11/26/19 11/26/19 History prednisone 5 mg PO DAILY 11/26/19 11/26/19 History aspirin 81 mg PO DAILY 11/27/19 11/27/19 History Sedation/Anesthesia: No previous sedation/anesthesia problems (including family history). [facility] Social History Social History Social History: The patient is . She lives home alone. She has 3 children. She denies any marijuana or illicit drugs. She reports that her code status is DNR. Her designated surrogate decision maker is her daughter Charly Esquivel. She is retired from [employer]. She is a former smoker. She quit 50 years ago. Smoking packs per day: 0.5 Smoking cigarettes per day: 10.0 Years smoked: 5 Smoking pack-years: 2.50 Smoking status: Never smoker Tobacco type: cigarettes Second hand tobacco smoke exposure: Yes Smoking end date: 04/30/1967 Alcohol intake: never Drinks per week: 1 Substance use: never Substance use type: does not use Living arrangements: with family Gender identity (if verbalized by the patient): Female Spiritual care concerns: No Mod Sed Physical Exam Physical Exam Pre Procedural Exam: Normal: Appearance, Eyes, Ears, Nose, Neck, Throat, Airway, Lungs, Heart Size, Heart Rate, Heart Rhythm, Neuro Exam, Abdomen, Liver, Kidneys, Spleen, Breasts, Genitalia, Extremities and Skin Hours since solid foods: 8 Hours since liquid intake: 8 Internal Medicine - PN: Obj Da Vital Signs Vital Signs: Vital Signs - 24 hr 07/30/20 12:02 Temperature 36.5 C Pulse Rate 66 Respiratory Rate 18 Blood Pressure 115/61 Pulse Oximetry 98 ASA Classification/Sedation ASA Classification/Sedation ASA Class: II Risks: Risks, benefits and alternatives explained and patient/family accepted plan for sedation. Patient re-evaluated immediately prior to sedation.
--- NOTE | 2019-11-27 13:16 | PM.IMHP ---
H&P: HPI History of Present Illness Chief complaint: severe Narrative: Ana Esquivel is a 74 year old female Has history of known aortic valve stenosis, noted to have moderate to severe aortic valve stenosis, she will be going for T to consider TAVR for treatment PMFSH Social History Social History Social History: The patient is . She lives home alone. She has 3 children. She denies any marijuana or illicit drugs. She reports that her code status is DNR. Her designated surrogate decision maker is her daughter Charly Esquivel. She is retired from [employer]. She is a former smoker. She quit 50 years ago. Smoking packs per day: 0.5 Smoking cigarettes per day: 10.0 Years smoked: 5 Smoking pack-years: 2.50 Smoking status: Never smoker Tobacco type: cigarettes Second hand tobacco smoke exposure: Yes Smoking end date: 04/30/1967 Alcohol intake: never Drinks per week: 1 Substance use: never Substance use type: does not use Living arrangements: with family Gender identity (if verbalized by the patient): Female Spiritual care concerns: No Meds Home Medications and Allergies Home Medications Medication Instructions Recorded Confirmed Type lisinopril-hydrochlorothiazide 1 tablet PO DAILY 10/22/19 11/26/19 History metoprolol succinate 25 mg PO DAILY 10/22/19 11/26/19 History pantoprazole 40 mg PO HS 10/22/19 11/26/19 History rosuvastatin 10 mg PO HS 10/22/19 11/26/19 History clopidogrel 75 mg PO QAM #30 tablet 10/24/19 11/26/19 Rx tramadol 50 mg PO Q6H PRN #14 tablet 11/17/19 11/26/19 Rx furosemide 20 mg PO DAILY 11/26/19 11/26/19 History prednisone 5 mg PO DAILY 11/26/19 11/26/19 History aspirin 81 mg PO DAILY 11/27/19 11/27/19 History Allergies Allergy/AdvReac Type Severity Reaction Status Date / Time No Known Allergies Allergy Verified 11/12/19 16:17 Vital Signs Vital Signs - 24 hr 11/27/19 12:02 Temperature 36.5 C Pulse Rate 66 Respiratory Rate 18 Blood Pressure 115/61 Pulse Oximetry 98 Exam Narrative: Exam Narrative: Awake alert oriented x3 not in acute distress Neck is supple no obvious JVD, no carotid bruit Chest: Good air entry bilaterally, lungs are clear to auscultation and percussion bilaterally Cardiovascular: Regular rate and rhythm, 2/6 systolic murmur noted left sternal border Abdomen: Soft nontender bowel sounds positive Extremities: No edema has good pulses distally bilaterally Assessment and Plan Assessment and plan (1) Aortic valve stenosis: Code(s): I35.0 - Nonrheumatic aortic (valve) stenosis Status: Acute Assessment and Plan: she has severe aortic valve stenosis, will proceed with ESTEFANÍA to evaluate the morphology of the valve to consider TAVR
--- NOTE | 2019-11-27 13:43 | P.PCNCC_ITS ---
Cardiac Cath Procedure Note Date of procedure:: 11/27/19 Performing physician:: Ben Villalta MD procedure: ESTEFANÍA horizontal drill operator: Dr. Villalta sedation: Conscious sedation using 2 mg of Versed 25 micro crown fentanyl starting time is 13:21 ending time is 1:40 p.m. indication: Severe aortic valve stenosis findings there is mild concentric left ventricular hypertrophy with normal left ventricular systolic function, there is severe aortic valve stenosis with very calcified aortic valve and mild aortic valve regurgitation. Mitral valve is mildly sclerotic with mild regurgitation summary severe aortic valve stenosis
--- NOTE | 2019-11-27 14:37 | SUR.PHASEII ---
Pt. and daughter given discharge education on follow-up appointment and at-home care. Pt. and daughter verbalize understanding.
== END 2019-11-27 14:54 | disposition home or self-care (01) ==
PROVIDERS: PCP Family Medicine Adolescent Medicine; Visit Provider Specialist
PROC: (CPT 93312; principal; 2019-11-27 12:30)
DX: I35.2 Nonrheumatic aortic (valve) stenosis with insufficiency (principal); I34.0 Nonrheumatic mitral (valve) insufficiency; I11.9 Hypertensive heart disease without heart failure; I25.10 Atherosclerotic heart disease of native coronary artery without angina pectoris; Z95.1 Presence of aortocoronary bypass graft; E78.5 Hyperlipidemia, unspecified; K21.9 Gastro-esophageal reflux disease without esophagitis; Z87.891 Personal history of nicotine dependence; Z79.82 Long term (current) use of aspirin; Z79.02 Long term (current) use of antithrombotics/antiplatelets; Z79.52 Long term (current) use of systemic steroids; Z79.899 Other long term (current) drug therapy; Z66 Do not resuscitate
CPT/HCPCS: 93312; 93320; 93325; J2250; J2405; J3010; J7040

== ENCOUNTER 2020-04-16 12:43 | Outpatient (CLI) | payer MEDICARE, SELFPAY ==
--- NOTE | ~2020-04-16 | MR_ITS ---
EXAMINATION: MR brain/brain stem wo con DATE: 04/16/2020 14:54 INDICATION: Ataxia. Expressive aphasia. TECHNIQUE: Magnetic resonance imaging (MRI) of the brain and brainstem was performed without intraven ous contrast. Sequences included sagittal and axial T1-weighted FSE, axial diffusion-weighted FS EPI, axial T2*-weighted GRE, axial T2-weighted FLAIR Propeller, and axial T2-weighted Propeller. Apparent diffusion coefficient (ADC) maps were created. COMPARISON: Head CT 11/12/2019 FINDINGS: There is an empty sella. There is an old infarct in left temporal occipital region in the expected distribution of left posterior cerebral artery. There are small old infarcts in the cerebel lum bilaterally. There is an old infarct in left parietal lobe. There are small old infarcts in the f rontal lobes and right occipital lobe. There is an acute infarct in right cerebellum. There are acute infarcts in posterior left frontal lobe. There are small acute infarcts in left occipital lobe. Ther e are scattered areas of nonspecific increased T2-weighted signal intensity in the cerebral white mat ter, which is within normal limits for the patient's age. There is no intracranial hemorrhage or abno rmal intracranial mass lesion. The ventricles are normal in size. The ventricles are normal in size. There are likely changes of ocular lens replacement surgeries. There is a trace left mastoid effusion . IMPRESSION: 1. Acute infarcts in the right cerebellum, left occipital lobe, and posterior left frontal lobe. 2. Old infarcts in the left temporal occipital region, cerebellum, left parietal lobe, and bilateral frontal lobes. Reviewed, dictated and finalized at location A. S PROMOTION OFFICER IMPRESSION: 1. Acute infarcts in the right cerebellum, left occipital lobe, and posterior l eft frontal lobe. 2. Old infarcts in the left temporal occipital region, cerebellum, left parieta l lobe, and bilateral frontal lobes.
== END 2020-04-16 12:44 | disposition home or self-care (01) ==
LOC: ANHIMG 12:48
PROVIDERS: PCP Family Medicine Adolescent Medicine; Visit Provider Physician Assistant
DX: R27.0 Ataxia, unspecified (principal); R93.0 Abnormal findings on diagnostic imaging of skull and head, not elsewhere classified
CPT/HCPCS: 70551

== ENCOUNTER → 2020-05-07 11:52 | Outpatient (CLI) | payer MEDICARE, SELFPAY ==
--- NOTE | ~2020-05-07 | XR_ITS ---
EXAMINATION: XR foot RT min 3V EXAM DATE: 05/07/2020 12:06 INDICATION: Right foot pain and swelling at 1st MTP joint. No known recent injury. TECHNIQUE: Right foot dorsoplantar, lateral and oblique projections obtained and reviewed. There is no prior study for comparison. FINDINGS: There is severe right 1st metatarsophalangeal joint osteoarthritis, could be primary osteoa rthritis. There are small subchondral cystic regions, and there are also several small juxta-articula r erosions which could be gout. Joint space is narrowed, not widened as would be expected for joint e ffusion and there is no demineralization around the joint. Otherwise mild polyarticular osteoarthriti s. There are no acute fractures identified. 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 Reviewed, dictated and finalized at location A. 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
== END ==
PROVIDERS: PCP Family Medicine Adolescent Medicine; Visit Provider Physician Assistant
DX: M19.071 Primary osteoarthritis, right ankle and foot (principal)
CPT/HCPCS: 73630

== ENCOUNTER 2020-05-18 10:22 | Outpatient (RCR) | payer MEDICARE, SELFPAY ==
--- NOTE | 2020-05-18 11:28 | OTOPEVAL ---
OCCUPATIONAL THERAPY EVALUATION REPORT AND DISCHARGE SUMMARY 05/18/20 Patient presents with dx of CVA. At this time she reports being able to complete ADLs and household tasks independently, confirmed by family friend. She has intact, functional, and symmetrical UE strength and coordination. She appears to have cognitive limitations, scoring 13/30 on SLUMS cognitive screen, indicative of dementia. She reports that her barriers to function are all cognitive, noting difficulties with memory. She also notes increased difficulties with functional mobility and having difficulty on stairs. It appears that her needs will be better met by speech and physical therapy. Attached are scrips for these disciplines. No skilLed OT indicated at this time. Thank you for this referral. Thank you for referring Ana Esquivel to [facility] [place]. Please review, sign, date and return this evaluation report and D/C summary CHANEL. I agree with and certify that the following plan of care is medically necessary. Referring Physician Date Attending Provider: Sarwat Andersen MD Referring Provider: Kim Gill, EILEEN *OT Outpatient Evaluation Start: 05/18/20 10:34 Freq: Status: Active Protocol: Document 05/18/20 10:34 ESPERANZA (Rec: 05/18/20 11:27 ESPERANZA [email or web address]) Therapy Assessment Status Assessment Status Assessment Status Evaluation Outpatient Past Medical History Past Medical History Source of Past Medical History Patient,Recalled from Previous Visit, Unable to Confirm with Patient/Family Neurological History Hx Cerebrovascular Accident (CVA) Yes: CVA 03/2020, MRI (+) acute and chronic infarcts Cardiovascular History Hx Cardiac Catheterization Yes Hx Coronary Artery Bypass Graft Yes: 5 VESSEL 2017 Hx Coronary Artery Disease Yes Hx Hypertension Yes Respiratory History Hx Respiratory Disorders No Significant History Gastrointestinal History Hx Appendectomy Yes Genitourinary History Hx Genitourinary Disorders No Significant History Musculoskeletal History Hx Arthritis Yes Hx Gout Yes Hx Orthopedic Surgery Yes: RIGHT HIP REPLACEMENT Hx Other Musculoskeletal Disorders Yes: LEFT ELBOW DISLOCATED Hematological History Hx Hematological Disorders No Significant History Endocrine History Hx Endocrine Disorders No Significant History HEENT History Hx Cataracts Yes: s/p bilat extraction Hx Dental Problems Yes: DENTURES Hx Eye Surgery Yes: POOR VISION Integumentary History Hx Skin Disorders No Significant History Reproductive History Hx Reproductive Disorders No Significant History Psychosocial History Hx Psychiatric Disorders No Significant History Pain History Has Past Pain Affected Your Daily Life Yes: PAIN ELIJAH HANDS Anesthesia History Hx Anesthesia Reactions No Significant History Evaluation Information Problem Di
== END 2020-06-15 12:51 | disposition home or self-care (01) ==
LOC: ANHOT 10:22
PROVIDERS: PCP Family Medicine Adolescent Medicine; Referring Provider Family Medicine Adolescent Medicine; Visit Provider Physician Assistant
DX: I69.398 Other sequelae of cerebral infarction (principal); R41.0 Disorientation, unspecified
CPT/HCPCS: 97165

== ENCOUNTER 2020-05-28 01:30 | Emergency (ER) | payer MEDICARE, SELFPAY ==
--- NOTE | ~2020-05-28 | XR_ITS ---
EXAMINATION: XR ankle RT min 3V, XR foot RT min 3V EXAM DATE: 05/28/2020 02:21 INDICATION: Right foot and ankle pain, no known recent injury. TECHNIQUE: Right foot dorsoplantar, lateral and oblique projections obtained and reviewed. Right ank le frontal, lateral and oblique projections obtained and reviewed. Comparison is made to prior examin ation from 05/07/2020. FINDINGS: The right ankle mortise appears intact. There is severe right 1st metatarsophalangeal joint osteoarthritis, could be primary osteoarthritis. There are small subchondral cystic regions, an d there are also several small juxta-articular erosions which could be gout. Joint space is narrowed and there is no demineralization around the joint. Otherwise mild polyarticular osteoarthritis. Tiny calcaneal spurs. There are no acute fractures identified. There are arterial calcifications, arterios clerosis. Sequela from prior medial malleolar avulsion injury. There is no significant interval valdez e. 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 Reviewed, dictated and finalized at location A. 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
--- NOTE | ~2020-05-28 | XR_ITS ---
EXAMINATION: XR knee RT 3V EXAM DATE: 05/28/2020 02:21 INDICATION: Right knee pain posteriorly for one day. No known recent injury. TECHNIQUE: Right knee frontal, crosstable lateral, orthogonal oblique projections for interpretation . There is no prior study for comparison. FINDINGS: No evidence osteochondral defect or joint body in the right knee joint. Mild to moderate medial tibiofemoral compartment primary osteoarthritis. Small amount of joint fluid. Small suprapate llar enthesopathy. There are arterial calcifications, arteriosclerosis. There are no acute fractures or dislocations identified. There is no subcutaneous gas. There are no radiopaque foreign bodies. IMPRESSION: Mild to moderate medial tibiofemoral compartment osteoarthritis. Reviewed, dictated and finalized at location A. TION PAINT MACHINE TENDER
[2020-05-28 01:31] VITALS: BP 152/61; PULSE 78; RESP 18; TEMP 36.9; O2SAT 95
[2020-05-28 02:14] LABS: Basophils Absolute Auto 0.1 K/mm3 (0.0-0.1); Basophils Percent Auto 0.5 % (0.2-1.2); Eosinophils Absolute Auto 0.2 K/mm3 (0-0.3); Eosinophils Percent Auto 1.9 % (0-4.4); Hematocrit 35.8 % (37.0-47.0); Hemoglobin 11.3 g/dL (12.0-15.0); Immature Granulocyte Absolute 0.04 K/mm3 (0.00-0.031); Immature Granulocyte Percent A 0.4 % (0-0.5); Lymphocytes Absolute Auto 1.99 K/mm3 (0.9-3.2); Lymphocytes Percent Auto 18.8 % (18.3-44.2); Mean Corpuscular HGB Conc 31.6 g/dl (32-36); Mean Corpuscular Hemoglobin 25.1 pg (26-34); Mean Corpuscular Volume 79.6 fl (80-100); Mean Platelet Volume 9.2 fl (7.4-10.4); Monocytes Absolute Auto 0.7 K/mm3 (0.1-0.6); Monocytes Percent Auto 6.4 % (2.6-8.5); Neutrophils Absolute Auto 7.6 K/mm3 (1.3-6.7); Platelet Count Result 204 k/mm3 (150-375); Red Cell Distribution Width 17.8 % (11.5-14.5); White Blood Count 10.6 K/mm3 (4.5-10.0)
[2020-05-28 02:25] LABS: INR 1.1; Prothrombin Time 14.6 Seconds (11.1-14.7)
[2020-05-28 02:26] LABS: Alanine Aminotransferase 11 U/L (4-35); Albumin Level 3.7 g/dL (3.5-5.1); Alkaline Phosphatase 74 U/L (38-126); Anion Gap 6 mmol/L (8-16); Aspartate Amino Transferase 24 U/L (14-36); Bilirubin,Total 0.6 mg/dL (0.2-1.3); Blood Urea Nitrogen 28 mg/dL (7-17); Calcium 9.6 mg/dL (8.4-10.2); Carbon Dioxide 30 mmol/L (22-30); Chloride 105 mmol/L (98-107); Estimated CRCL calculation 29 ml/min; Estimated Glomerular Filt Rate 34; Glucose 113 mg/dL (65-105); Partial Thromboplastin Time 34.1 SECONDS (22.3-36.8); Potassium 3.8 mmol/L (3.4-5.0); Sodium 141 mmol/L (137-145)
--- NOTE | 2020-05-28 03:29 | ED.GENADULT ---
HPI - General Adult General Chief complaint: Extremity Problem,Nontraumatic Stated complaint: right leg pain Time Seen by Provider: 05/28/20 01:40 History of Present Illness HPI narrative: Patient is a 74-year-old female who presents emergency department with chief complaint of right lower extremity pain. The patient states she has been seen by her primary care physician has been treated with indomethacin but recently ran out of her most recent prescription and has now had increasing pain worse in the right knee and right ankle and foot. The patient states it slightly swollen states that it hurts worse whenever she ambulates. The patient denies chest pain denies shortness of breath denies abdominal pain vomiting or diarrhea. Related Data Home Medications Medication Instructions Recorded Confirmed lisinopril-hydrochlorothiazide 1 tablet PO DAILY 10/22/19 02/27/20 metoprolol succinate 25 mg PO DAILY 10/22/19 02/27/20 pantoprazole 40 mg PO HS 10/22/19 02/27/20 rosuvastatin 10 mg PO HS 10/22/19 02/27/20 furosemide 20 mg PO DAILY 11/26/19 02/27/20 aspirin 81 mg PO DAILY 11/27/19 02/27/20 Allergies Allergy/AdvReac Type Severity Reaction Status Date / Time No Known Allergies Allergy Verified 02/27/20 13:05 Review of Systems Review of Systems: Narrative: A 10 system review of systems was completed on the patient and is negative except for what is stated in the HPI. Nursing and ancillary documentation was reviewed. [facility] Past Medical History Medical History CAD (coronary artery disease) GERD (gastroesophageal reflux disease) HTN (hypertension) Hyperlipidemia Surgical History Surgical History H/O bilateral cataract extraction Heart valve replaced Hx of CABG 5 vessel 2017 S/P appendectomy Family History Family History Mother Family history of heart attack Endometritis Father Cancer of lung Coronary artery disease Sibling Diabetes mellitus Family history of heart attack Social History Social History Social History: The patient is . She lives home alone. She has 3 children. She denies any marijuana or illicit drugs. She reports that her code status is DNR. Her designated surrogate decision maker is her daughter Charly Esquivel. She is retired from [employer]. She is a former smoker. She quit 50 years ago. Smoking packs per day: 0.5 Smoking cigarettes per day: 10.0 Years smoked: 5 Smoking pack-years: 2.50 Smoking status: Never smoker Tobacco type: cigarettes Second hand tobacco smoke exposure: Yes Smoking end date: 04/30/1967 Alcohol intake: never Drinks per week: 1 Substance use: never Substance use type: does not use Gender identity (if verbalized by the patient): Female Spiritual care concerns: No Exam Narrative: Exam Narrative: GENERAL: Well-appearing, well-nourished, and in no acute distress. HEAD: Normocephalic, atraumatic. EYES: PERRLA and EOMI. ENT: Nares clear, no rhinorrhea or epistaxis. Mucous membranes moist. NECK: Supple. CHEST: Clear to auscultation. No respiratory distress. HEART: Regular rate and rhythm. No murmur heard. Normal peripheral pulses. ABDOMEN: Soft, nontender, nondistended, normal active bowel sounds. EXTREMITIES: Normal range of motion. No edema., There is tenderness to palpation in the right knee and right ankle and right foot. There is trace edema of the right lower extremity. SKIN: Warm, dry, no rash. NEURO: No focal deficits. Alert and oriented x3. PSYCH: Normal mood and affect. Course Course Emergency Course: Plain film x-ray showed no evidence of fracture. Patient's D-dimer was minimally elevated due to this the patient was given a dose of Lovenox at 1 mg/kg. The patient will re
[2020-05-28] MEDS: INDOMETHACIN 25 MG CAPSULE PO (03:53)
[2020-05-28] MEDS: ENOXAPARIN 80 MG/0.8 ML SYRINGE 72 MG SUB-Q (03:53)
[2020-05-28 04:02] VITALS: BP 150/73; PULSE 75; RESP 16; TEMP 36.6; O2SAT 99
== END 2020-05-28 04:04 | disposition home or self-care (01) ==
PROVIDERS: Emergency Provider Emergency Medicine; Family Provider Family Medicine Adolescent Medicine; PCP Family Medicine Adolescent Medicine
DX: M79.661 Pain in right lower leg (principal); I25.10 Atherosclerotic heart disease of native coronary artery without angina pectoris; K21.9 Gastro-esophageal reflux disease without esophagitis; I10 Essential (primary) hypertension; E78.5 Hyperlipidemia, unspecified; Z98.42 Cataract extraction status, left eye; Z98.41 Cataract extraction status, right eye; Z95.2 Presence of prosthetic heart valve; Z79.82 Long term (current) use of aspirin; Z95.1 Presence of aortocoronary bypass graft; Z66 Do not resuscitate; Z87.891 Personal history of nicotine dependence
CPT/HCPCS: 36415; 73562; 73610; 73630; 80053; 85025; 85380; 85610; 85730; 93971; 96372; 99284; A9270; J1650

== ENCOUNTER 2020-05-28 08:16 | Outpatient (CLI) | payer MEDICARE, SELFPAY ==
--- NOTE | ~2020-05-28 | US_ITS ---
EXAMINATION: US venous doppler LE RT DATE: 05/28/2020 09:06 INDICATION: Right lower limb pain and swelling. TECHNIQUE: Grayscale ultrasound images without and with compression and Doppler ultrasound images of the right lower extremity veins were obtained. COMPARISON: Ultrasound 11/13/2019 FINDINGS: The visualized portions of right common femoral vein, profunda (deep) femoral vein, femoral vein, pop liteal vein, posterior tibial veins, and greater saphenous vein outflow are patent. There is a large Cobb's cyst. IMPRESSION: 1. No deep venous thrombosis. 2. Large right-sided Cobb's cyst. Reviewed, dictated and finalized at location A. X FASHIONS DESIGNER
== END 2020-05-28 08:17 | disposition home or self-care (01) ==
PROVIDERS: Family Provider Family Medicine Adolescent Medicine; PCP Family Medicine Adolescent Medicine; Visit Provider Emergency Medicine
DX: M79.89 Other specified soft tissue disorders (principal); M71.21 Synovial cyst of popliteal space [Baker], right knee
CPT/HCPCS: 93971

== ENCOUNTER 2020-08-24 11:00 | Outpatient (RCR) | payer MEDICARE, SELFPAY ==
--- NOTE | 2020-07-29 10:19 | PTOPEVAL ---
Thank you for referring Ana Esquivel to [facility].? The patient is scheduled to be seen for therapy? 1 x/week for 4 weeks. Please review, sign, date and return this plan of care CHANEL. I agree with and certify that the following plan of care is medically necessary. Referring Physician Date Attending Provider: Kim Gill, PA-C Physical Therapy Evaluation Diagnosis CVA Onset 03/19 Subjective Information She does not use an assistive Query Text:As Reported By Patient/ device for mobility. She is Family indep with her ADL's and IADL's. She uses a cart with distance walking for shopping. She denies any falls, but feels like she walks slower. She did have gout that affected her balance, but the gout has resolved. She has 5 steps to enter with left railing and 1 flight to basement with left railing. She does not require assistance with ambulation. She is able to get off the ground if she has a chair or couch to assist. Pain Assessment Self Report Self Report Pain Level 0 Lower Extremity Muscle Strength Testing Hip Strength Bilateral Hip Flexion Strength 4- Good - Hip Extension Strength 3 Fair Hip Abduction Strength 3 Fair Knee Strength Bilateral Knee Flexion Strength 4- Good - Knee Extension Strength 4- Good - Ankle Strength Bilateral Ankle Dorsiflexion Strength 5 Normal Bed Mobility Assessment Bed Mobility Bed Mobility Assistive Devices None Bed Type Mat Overall Bed Mobility Ability Independent Balance Assessment Ferreira Balance Assessment FERREIRA Balance Evaluation Total Score (51/56 points) Comments single leg stance 1 sec lux leg Time Up Go (TUG) Timed Up and Go Test (TUG) (Seconds) 15 Assistive Devices None 5 Time Sit to Stand Time in Seconds 16 5 Time Sit to Stand Comments without UE support Functional Gait Assessment Gait Level Surface Mild Impairment Change in Gait Speed Moderate Impairment Gait with Horizontal Head Turns Moderate Impairment Gait with Verticle Head Turns Moderate Impairment Gait and Pivot Turn Mild Impairment Steps Over Obstacles Moderate Impairment Gait With Narrow Base of Support Moderate Impairment Gait With Eyes Closed
--- NOTE | 2020-07-29 14:22 | STOPEVAL ---
SPEECH THERAPY INITIAL EVALUATION: Thank you for referring Ana Esquivel to [facility].? The patient is scheduled to be seen for therapy x1/week for 4 weeks. Please review, sign, date and return this plan of care CHANEL. I agree with and certify that the following plan of care is medically necessary. Referring Physician Date Attending Provider: Kim Gill, EILEEN PMH: Neurological History Hx Cerebrovascular Accident (CVA) Yes: CVA 02/2020, MRI (+) acute and chronic infarcts Cardiovascular History Hx Cardiac Catheterization Yes Hx Coronary Artery Bypass Graft Yes: 5 VESSEL 2016 Hx Coronary Artery Disease Yes Hx Hypertension Yes Respiratory History Hx Respiratory Disorders No Significant History Gastrointestinal History Hx Appendectomy Yes Genitourinary History Hx Urinary Tract Infection Yes: last: Musculoskeletal History Hx Arthritis Yes Hx Gout Yes Hx Orthopedic Surgery Yes: RIGHT HIP REPLACEMENT Hx Other Musculoskeletal Disorders Yes: LEFT ELBOW DISLOCATED Hematological History Hx Hematological Disorders No Significant History Endocrine History Hx Endocrine Disorders No Significant History HEENT History Hx Cataracts Yes: s/p bilat extraction Hx Dental Problems Yes: DENTURES Hx Eye Surgery Yes: POOR VISION Integumentary History Hx Skin Disorders No Significant History Reproductive History Hx Reproductive Disorders No Significant History Psychosocial History Hx Psychiatric Disorders No Significant History Pain History Has Past Pain Affected Your Daily Life Yes: PAIN [employer]S Anesthesia History Hx Anesthesia Reactions No Significant History Evaluation Information Problem Diagnosis CVA Onset 1-2 years ago plus suspected recent Diagnostic Tests MRI For This Problem Yes Previous Treatments Previous Treatments For This Problem No Prior Level of Function Activity Level (Last 3 Months) Occupation retired from office work Hand Dominance Right Indoor/Home Mobility Independent Community Mobility Independent Cooking Yes Cleaning Yes Laundry Yes Driving No Home Setting Home Type House Living Situation With Adult Child Support Available Local Family Support Prior Swallow Level Prior Intake Method Oral Prior Diet Regular (Level 7 Diet) Prior Liquid Consistency Thin (Level 0 Diet) Prior Cognition/Communication Prior Ability to Handle Finances Assistance, Family Cognitive Evaluation Orientation/Memory Assessment
--- NOTE | 2020-08-24 10:39 | STOPEVAL ---
SPEECH THERAPY DISCHARGE: Thank you for referring Ana Esquivel to [facility].? Upon completion of the re evaluation, it has been determined that pt has achieved all set goals for memory and functional reading; therefore, no further ST is warranted at this time. Please review, sign, date and return this plan of care/discharge CHANEL. I agree with and certify that the following plan of care is medically necessary. Referring Physician Date Attending Provider: Kim Gill, EILEEN/Sarwat Andersen MD *ST Outpatient Re-Evaluation Cognitive Evaluation Orientation/Memory Assessment Immediate Memory 100 Query Text:% Accuracy Recent Memory 100 Query Text:% Accuracy Remote Memory 100 Query Text:% Accuracy Prospective Memory 100 Query Text:% Accuracy Temporal Orientation 100 Query Text:% Accuracy Spatial/Environmental Orientation 100 Query Text:% Accuracy Overall Orientation and Memory No Impairment Problem Solving Complex Problem Solving: Percent of 100 Accuracy 0-100 (%) Overall Problem Solving Skills within functional limits Thought Organization Sequencing: Percent of Accuracy 0-100 (% 100 ) Categorizing: Percent of Accuracy 0-100 100 (%) Functional Math: Percent of Accuracy 0- 100 100 (%) Functional Reading: Percent of Accuracy 90 0-100 (%) Overall Thought Organization Ability within functional limits Auditory Processing and Retention Assessment Complex Yes/No Question (% Accuracy) 100 Auditory Processing Complex Directives ( 100 % Accuracy) Auditory Processing Complex Paragraphs ( 90 % Accuracy) Response Latency Mild Deficits Overall Auditory Processing Ability within functional limits Auditory Processing Comments pt takes extra time with complex information Speech Therapy Teaching Speech Therapy Teaching Teaching Topic Swallowing/Communication Topic Component Cognition As Pertains To Compensatory Strategies,Memory ,Reading Comprehension Recipient(s) of Teaching Patient Learning Preferences Demonstration,Discussion,One- on-One Instruction Readiness to Learn Excellent Teaching Method(s) Demonstration,Discussion,One- On-One Instruction Response(s) to Teaching Returns Demonstration, Verbalizes Understanding ST Clinical Summary Clinical Summary ST Clinical Summary Upon completion of the re- evaluation, the pt presents with memory skills in all
--- NOTE | 2020-08-24 11:51 | PTOPEVAL ---
Thank you for referring Ana Esquivel to [facility].? Ana has been seen for 5 physical therapy visits to address her balance, strength and decreased functional mobility. She has improved with her impairments with her therapy goals at this time. Will plan to D/C skilled therapy services at this time with Ana to continue with home program at this time. Please review, sign, date and return this discharge summary CHANEL. I agree with and certify that the following plan of care is medically necessary. Referring Physician Date Attending Provider: Kim Gill, PA-C Discharge Summary Diagnosis CVA Onset 03/19 Subjective Information She is performing community Query Text:As Reported By Patient/ walking without limitations. Family She is walking 3 blocks on level/uneven surfaces. Denies an falls or balance issues. Pain Assessment Self Report Pain Level 0 Pain Score Pain Score 0: Self Report Lower Extremity Muscle Strength Testing Hip Strength Bilateral Hip Flexion Strength 4+ Good + Hip Extension Strength 4+ Good + Hip Abduction Strength 4- Good - Knee Strength Bilateral Knee Flexion Strength 5 Normal Knee Extension Strength 5 Normal Balance Assessment CAST Balance Evaluation Total Score (55/56 points) Comments single leg stance 4 sec lux leg Time Up Go (TUG) Timed Up and Go Test (TUG) (Seconds) 12 Assistive Devices None 5 Time Sit to Stand Time in Seconds 13 5 Time Sit to Stand Comments without UE support Functional Gait Assessment Total Score (1830) Gait Assessment Gait Assessment Ambulation Surface Wind Ridge,Grass,Level,Rough, Smooth,Uneven Ambulation Ability Independent Additional Ambulation Comments no deviations on uneven surface,grass, rocks and level surfaces Gait Pattern Assessment Gait Pattern Antalgic Gait,Trendelenburg Gait Gait Pattern Observed Decreased Stride Length - Left ,Decreased Stride Length - Right,No Heel Strike - Left,No Heel Strike - Right Other Gait Observations antalgic gt on right leg 2 Minute Walk Total Distance Walked (feet) 450 2 Minute Walk Gait Speed Score (feet/ 3.75 second) Stair Climbing Assessment Stair Climbing Assessment Stair Climbing Assistive Devices Railings Number of Steps Climbed (Steps) 8 Technique Alternating Steps Stair Climbing Korinali
== END 2020-08-25 14:21 | disposition home or self-care (01) ==
LOC: ANHPT 11:00
PROVIDERS: PCP Family Medicine Adolescent Medicine; Visit Provider Physician Assistant
DX: I69.311 Memory deficit following cerebral infarction (principal)
CPT/HCPCS: 92523; 97110; 97112; 97129; 97130; 97162; 97530

== ENCOUNTER 2020-09-24 11:19 | Outpatient (CLI) | payer MEDICARE, SELFPAY ==
--- NOTE | ~2020-09-24 | MR_ITS ---
EXAMINATION: MR brain/brain stem wo con DATE: 09/24/2020 14:05 INDICATION: Acute weakness of right hand. TECHNIQUE: Magnetic resonance imaging (MRI) of the brain and brainstem was performed without intraven ous contrast. Sequences included sagittal and axial T1-weighted FSE, axial diffusion-weighted FS EPI, axial T2*-weighted GRE, axial T2-weighted FLAIR Propeller, and axial T2-weighted Propeller. Apparent diffusion coefficient (ADC) maps were created. COMPARISON: Brain MRI 04/16/2020, head CT 11/12/2019 FINDINGS: There is an empty sella. There is an acute infarct in left frontoparietal region. There a re small acute infarcts in right frontal lobe and right frontoparietal region. There are old infarcts in the bilateral cerebellum. There is an old infarct in left temporal occipital region. There are ol d infarcts in the frontal lobes, left parietal lobe, and right occipital lobe. There is no intracrani al hemorrhage or abnormal mass lesion. The ventricles are normal in size. There is mild mucosal thick ening in the paranasal sinuses. There are likely changes of ocular lens replacement surgeries. The ma stoid air cells are normal. IMPRESSION: 1. Acute infarcts involving the bilateral frontoparietal regions and right frontal lobe. 2. Numerous old infarcts in the brain. Reviewed, dictated and finalized at location A. IMPRESSION: 1. Acute infarcts involving the bilateral frontoparietal regions and right fron yolanda lobe. 2. Numerous old infarcts in the brain.
== END 2020-09-24 11:20 | disposition home or self-care (01) ==
PROVIDERS: PCP Family Medicine Adolescent Medicine; Visit Provider Family Medicine Adolescent Medicine
DX: R53.83 Other fatigue (principal); Z86.73 Personal history of transient ischemic attack (TIA), and cerebral infarction without residual deficits
CPT/HCPCS: 70551

== ENCOUNTER 2020-10-05 13:20 | Outpatient (CLI) | payer MEDICARE, SELFPAY ==
--- NOTE | ~2020-10-05 | US_ITS ---
EXAMINATION: US carotid duplex BI DATE: 10/05/2020 14:35 INDICATION: Carotid stenosis TECHNIQUE: Grayscale, color Doppler, and pulsed Doppler images of the cervical carotid arteries were obtained. The degree of vessel stenosis is placed in one of the following categories: normal, <50%, 5 0-69%, >=70% but less than near-occlusion, near-occlusion, or total occlusion. Note that percent sten osis relative to normal distal artery lumen diameter is indirectly measured from velocity measurement s as described by Angel, et al. Radiology 2003; 229:340-346. Notes: Normal: Peak systolic velocity <125 centimeters/sec and no plaque <50%. Peak systolic velocity <125 ( EDV <40; ICA/CCA PSV ratio <2.0; used these factors only a tandem lesions or low cardiac output or co ntralateral disease) 50-69 %: PSV 125-230 (EDV 40-100; ratio 2-4) >= 70% but less than near occlusion: PSV greater than 230 (EDV > 100; ratio> 4.0) Near Occlusion: PSV that is variable; markedly narrowed lumen Occlusion: Absent flow on color/spectral Doppler and no lumen on forrest scale. COMPARISON: None. FINDINGS: RIGHT: The right common carotid artery (CCA) peak systolic velocity (PSV) is 60 cm/s. The right internal car otid artery (ICA) PSV is 85 cm/s. The right ICA end-diastolic velocity (EDV) is 12 cm/s. The right IC A/CCA PSV ratio is 1.4. The external carotid artery (ECA) PSV is 70 cm/s. There is antegrade flow in the right vertebral artery. LEFT: The left CCA PSV is 74 cm/s. The left ICA PSV is 128 cm/s. The left ICA EDV is 31 cm/s. The left ICA/ CCA PSV ratio is 1.7. The ECA PSV is 69 cm/s. There is antegrade flow in the left vertebral artery. IMPRESSION: 1. Less than 50% stenosis in the right internal carotid artery by sonographic criteria. 2. 50-69% stenosis in the left internal carotid artery by sonographic criteria. Reviewed, dictated and finalized at location B. IMPRESSION: 1. Less than 50% stenosis in the right internal carotid artery by sonographic c riteria. 2. 50-69% stenosis in the left internal carotid artery by sonographic criteria.
== END 2020-10-05 13:21 | disposition home or self-care (01) ==
PROVIDERS: PCP Family Medicine Adolescent Medicine; Visit Provider Family Medicine Adolescent Medicine
DX: I65.23 Occlusion and stenosis of bilateral carotid arteries (principal)
CPT/HCPCS: 93880

== ENCOUNTER 2020-11-24 08:27 | Outpatient (CLI) | payer MEDICARE, SELFPAY ==
--- NOTE | ~2020-11-24 | MR_ITS ---
EXAMINATION: MRA brain wo [facility] EXAM DATE: 11/24/2020 10:38 INDICATION: Carotid stenosis or occlusion. Strokes. TECHNIQUE: 3-D [id number] MRA of the intracranial arteries was performed without contrast. There is no prior study for comparison. FINDINGS: There is normal flow related signal seen within the vertebral, basilar and internal carotid arteries. There is no proximal stenosis (intracranial internal carotid arteries, vertebral basilar arteries). There are no aneurysms identified. Both A1 and P1 segments are patent. There is moderate scattered cerebral artery atherosclerotic disease, but arborization is symmetric. There is right-sided posteri or communicating artery dominant posterior cerebral artery. Old infarctions identified in the cerebellum, left occipital, parietal and frontal lobes. IMPRESSION: 1. Moderate scattered cerebral atherosclerosis. No proximal stenosis. 2. Old infarctions. Reviewed, dictated and finalized at location B.
--- NOTE | ~2020-11-24 | MR_ITS ---
EXAMINATION: MRA neck wo con EXAM DATE: 11/24/2020 10:38 INDICATION: Carotid stenosis. TECHNIQUE: Magnetic resonance angiography (MRA) of the neck was performed. Sequences included axial 2 D-time of flight T1-weighted FSPGR and coronal T1-weighted FSPGR without intravenous contrast. Corre lation is made to carotid ultrasound 10/05/20. FINDINGS: There is 0% stenosis of the right carotid bulb relative to normal distal artery lumen diameter (NASCE T criteria). There is 30% stenosis of the left carotid bulb relative to normal distal artery lumen d iameter. IMPRESSION: 1. 0% stenosis of the right carotid bulb. 2. 30% stenosis of the left carotid bulb. Reviewed, dictated and finalized at location B.
== END 2020-11-24 08:28 | disposition home or self-care (01) ==
LOC: ANHIMG 08:35
PROVIDERS: PCP Family Medicine Adolescent Medicine; Visit Provider Specialist
DX: I65.22 Occlusion and stenosis of left carotid artery (principal); I67.2 Cerebral atherosclerosis
CPT/HCPCS: 70544; 70547

== ENCOUNTER 2021-05-12 01:28 | Day surgery (SDC) | payer MEDICARE, SELFPAY ==
[2021-04-25 14:35] VITALS: BMI 25.9
--- NOTE | 2021-05-11 15:50 | PM.HPGS ---
History of Present Illness History of Present Illness Consent: Risks, benefits, and alternatives have been discussed and questions answered. Patient agrees to proceed with procedure. Chief complaint: neoplasm screening Narrative: Ana Esquivel is a 75 year old female referred for colon cancer screening Review of Systems Review of Systems: All systems reviewed & are unremarkable except as noted in HPI and below PMFSH Past Medical History Medical History CAD (coronary artery disease) GERD (gastroesophageal reflux disease) HTN (hypertension) Hyperlipidemia Surgical History Surgical History H/O bilateral cataract extraction Heart valve replaced Hx of CABG 5 vessel 2017 S/P appendectomy Family History Family History Mother Family history of heart attack Endometritis Father Cancer of lung Coronary artery disease Sibling Diabetes mellitus Family history of heart attack Social History Social History Social History: The patient is . She lives home alone. She has 3 children. She denies any marijuana or illicit drugs. She reports that her code status is DNR. Her designated surrogate decision maker is her daughter Charly Esquivel. She is retired from [employer]. She is a former smoker. She quit 50 years ago. Smoking packs per day: 0.5 Smoking cigarettes per day: 10.0 Years smoked: 5 Smoking pack-years: 2.50 Smoking status: Never smoker Tobacco type: cigarettes Second hand tobacco smoke exposure: Yes Smoking end date: 04/30/1967 Alcohol intake: never Drinks per week: 1 Substance use: never Substance use type: does not use Living arrangements: with family Gender identity (if verbalized by the patient): Female Sexual Orientation (if Verbalized by the Patient): Straight or Heterosexual Spiritual care concerns: No Meds Home Medications and Allergies Home Medications Medication Instructions Recorded Confirmed Type lisinopril-hydrochlorothiazide 1 tablet PO DAILY 10/22/19 05/12/21 History metoprolol succinate 25 mg PO DAILY 10/22/19 05/12/21 History pantoprazole 40 mg PO HS 10/22/19 05/12/21 History rosuvastatin 10 mg PO HS 10/22/19 05/12/21 History tramadol 50 mg PO Q6H PRN #14 tablet 11/17/19 05/12/21 Rx furosemide 20 mg PO DAILY PRN 11/26/19 05/12/21 History diclofenac sodium 75 mg PO DAILY PRN 04/25/21 05/12/21 History empagliflozin [Jardiance] 10 mg PO DAILY 04/25/21 05/12/21 History ferrous sulfate [FeroSul] 325 mg PO DAILY 04/25/21 05/12/21 History finerenone [Kerendia] 10 mg PO DAILY 04/25/21 05/12/21 History icosapent ethyl [Vascepa] 1 g PO DAILY 04/25/21 05/12/21 History rivaroxaban [Xarelto] 2.5 mg PO DAILY 04/25/21 05/12/21 History Allergies Allergy/AdvReac Type Severity Reaction Status Date / Time No Known Allergies Allergy Verified 05/12/21 07:36 Exam Resp: Auscultation: clear to auscultation bilaterally Cardio: Rate: regular rate Rhythm: regular rhythm GI: GI Palp: Yes Soft to palpation and No Tenderness to palpation present (GI) Assessment and Plan Assessment and plan (1) Colon cancer screening: Code(s): Z12.11 - Encounter for screening for malignant neoplasm of colon Status: Acute Assessment and Plan: Colonoscopy with possible biopsy or polypectomy or cautery or injection of substances.
[2021-05-12 07:37] VITALS: BP 93/71; PULSE 84; RESP 16; TEMP 36.7; O2SAT 99
[2021-05-12] MEDS: LACTATED RINGERS 1,000 ML 150 ML IV CONT (07:40)
[2021-05-12] MEDS: GENTAMICIN 80MG/SOD CHL 50 ML 80 MG/50 ML BAG 100 MG IVPB (07:46)
[2021-05-12 07:59] LABS: Glucose Point of Care 133 mg/dl (65-105)
--- NOTE | 2021-05-12 08:19 | WPDANESEPPF ---
Anes - Initial Pre Proc Eval Procedure: Operation Date: 05/12/21 09:30 Proposed Procedures p Screening Colonoscopy - Francis Gabriel MD Date/Time: 05/12/21 08:19 Surgeon: Francis Gabriel MD Pre Op Diagnosis: neoplasm screening Patient Data Age: 75 Gender: F Height: 1.68 m Weight: 70.3 kg Last Vital Signs Temp 98.1 F 05/12/21 07:37 Pulse 84 05/12/21 07:37 Resp 16 05/12/21 07:37 BP 93/71 L 05/12/21 07:37 Pulse Ox 99 05/12/21 07:37 Allergies Allergy/AdvReac Type Severity Reaction Status Date / Time No Known Allergies Allergy Verified 05/12/21 07:36 Home Medications Medication Instructions Recorded Confirmed Type lisinopril-hydrochlorothiazide 1 tablet PO DAILY 10/22/19 05/12/21 History metoprolol succinate 25 mg PO DAILY 10/22/19 05/12/21 History pantoprazole 40 mg PO HS 10/22/19 05/12/21 History rosuvastatin 10 mg PO HS 10/22/19 05/12/21 History tramadol 50 mg PO Q6H PRN #14 tablet 11/17/19 05/12/21 Rx furosemide 20 mg PO DAILY PRN 11/26/19 05/12/21 History diclofenac sodium 75 mg PO DAILY PRN 04/25/21 05/12/21 History empagliflozin [Jardiance] 10 mg PO DAILY 04/25/21 05/12/21 History ferrous sulfate [FeroSul] 325 mg PO DAILY 04/25/21 05/12/21 History finerenone [Kerendia] 10 mg PO DAILY 04/25/21 05/12/21 History icosapent ethyl [Vascepa] 1 g PO DAILY 04/25/21 05/12/21 History rivaroxaban [Xarelto] 2.5 mg PO DAILY 04/25/21 05/12/21 History Laboratory Tests 05/12/21 07:48 POC Capillary Glucose 133 mg/dl H mg/dl (65-105) Patient hx anesthesia problems: none Family hx anesthesia problems: none Results Review: All pre-operative results and documents have been reviewed as part of the pre-operative evaluation. [facility] Past Medical History Medical History CAD (coronary artery disease) GERD (gastroesophageal reflux disease) HTN (hypertension) Hyperlipidemia Surgical History Surgical History H/O bilateral cataract extraction Heart valve replaced Hx of CABG 5 vessel 2017 S/P appendectomy Family History Family History Mother Family history of heart attack Endometritis Father Cancer of lung Coronary artery disease Sibling Diabetes mellitus Family history of heart attack Social History Social History Social History: The patient is . She lives home alone. She has 3 children. She denies any marijuana or illicit drugs. She reports that her code status is DNR. Her designated surrogate decision maker is her daughter Charly Esquivel. She is retired from [employer]. She is a former smoker. She quit 50 years ago. Smoking packs per day: 0.5 Smoking cigarettes per day: 10.0 Years smoked: 5 Smoking pack-years: 2.50 Smoking status: Never smoker Tobacco type: cigarettes Second hand tobacco smoke exposure: Yes Smoking end date: 04/30/1967 Alcohol intake: never Drinks per week: 1 Substance use: never Substance use type: does not use Living arrangements: with family Gender identity (if verbalized by the patient): Female Sexual Orientation (if Verbalized by the Patient): Straight or Heterosexual Spiritual care concerns: No Anes - Eval Final PreProcedure Day of Procedure 05/12/21 08:19 Patient weight: normal Heart: regular rate and rhythm Lungs: clear to auscultation Airway: Mallampati scale class II Neurological: alert and oriented Last oral intake: >/= 8 hours ASA classification: III Emergent: no Anesthetic plan: proceed Anesthesia type and monitoring: general GIVS and standard monitoring Results Review: All pre-operative results and documents have been reviewed as part of the pre-operative evaluation. Informed Consent: The patient's anesthetic plan and its attendant risks and
[2021-05-12 09:03] VITALS: BP 83/49; PULSE 67; RESP 15; O2SAT 97
[2021-05-12 09:13] VITALS: BP 111/70; PULSE 64; RESP 19; O2SAT 100
[2021-05-12 09:23] VITALS: BP 117/70; PULSE 75; RESP 19; O2SAT 100
== END 2021-05-12 09:40 | disposition home or self-care (01) ==
PROVIDERS: PCP Family Medicine Adolescent Medicine; Visit Provider Internal Medicine Gastroenterology
PROC: 0DJD8ZZ Inspection of Lower Intestinal Tract, Via Natural or Artificial Opening Endoscopic (ICD-10-PCS; CPT 45378; principal; 2021-05-12 09:30)
DX: Z12.11 Encounter for screening for malignant neoplasm of colon (principal); K57.30 Diverticulosis of large intestine without perforation or abscess without bleeding; I25.10 Atherosclerotic heart disease of native coronary artery without angina pectoris; I10 Essential (primary) hypertension; E78.5 Hyperlipidemia, unspecified; K21.9 Gastro-esophageal reflux disease without esophagitis; Z95.1 Presence of aortocoronary bypass graft; Z95.4 Presence of other heart-valve replacement; Z87.891 Personal history of nicotine dependence; Z79.01 Long term (current) use of anticoagulants; Z79.84 Long term (current) use of oral hypoglycemic drugs
CPT/HCPCS: G0121; 82948; J1580; J2704; J7120

== ENCOUNTER 2022-05-03 11:53 | Observation (INO) | payer MEDICARE, SELFPAY ==
[2022-05-03] VITALS (28 sets, daily range): BP systolic 114–142; BP diastolic 38–114; PULSE 81–98; RESP 16–23; TEMP 36.7–36.9; O2SAT 91–98
--- NOTE | ~2022-05-03 | CT_ITS ---
CT head without contrast Indication: Weakness COMPARISON: 11/12/2019 Technique: Serial scans were obtained through the brain without the administration of contrast. Dose reduction technique was used on this scan by utilizing automated exposure control and iterative recon struction technique. The dose-length product (DLP) was 529.67 mGy-cm. Findings: There is no evidence of intracranial hemorrhage, mass lesion, or acute infarct. Multiple ol d infarcts are present, including in the bilateral frontal lobes, left occipital lobe, left parietal lobe, and right cerebellum. The ventricles and subarachnoid spaces are dilated, consistent with mild atrophy. Low attenuation regions are seen within the periventricular white matter bilaterally, likel y representing changes from chronic microvascular ischemic disease. There is no evidence of edema, m ass effect or midline shift. The visualized paranasal sinuses and mastoid air cells are clear. Impression: No intracranial hemorrhage, mass, or acute infarct. Multiple chronic infarcts, as detailed above. Atrophy and chronic white matter changes, as above. Reviewed, dictated and finalized at location M. TRACER Impression: No intracranial hemorrhage, mass, or acute infarct. Multiple chronic infarcts, as detailed above. Atrophy and chronic white matter changes, as above.
--- NOTE | ~2022-05-03 | XR_ITS ---
EXAMINATION: XR chest 1V portable DATE: 05/03/2022 12:31 INDICATION: Weakness. TECHNIQUE: A single frontal view of the chest was obtained. COMPARISON: Chest 2 views 11/12/2019 FINDINGS: There is mild atelectasis in the lower lung zones. No pleural effusion or pneumothorax. The heart size is normal. There are changes of aortic valve replacement. Median sternotomy wires and med iastinal surgical clips are seen, likely from prior coronary artery bypass grafting. IMPRESSION: 1. Mild atelectasis in the lower lung zones. Reviewed, dictated and finalized at location A. FIGHTING EQUIPMENT SPECIALIST
--- NOTE | 2022-05-03 12:02 | ECG_ITS ---
Measurements Intervals [place] Rate: 94 P: 7 ID: [id number] QRS: -57 QRSD: 121 T: 12 QT: 363 QTc: 455 Interpretive Statements SINUS RHYTHM LEFT AXIS DEVIATION INTRAVENTRICULAR CONDUCTION DELAY POOR R WAVE PROGRESSION, ANTERIOR LEADS BORDERLINE ST-T WAVE ABNORMALITY- HIGH LATERAL LEADS BASELINE ARTIFACT- I, II, III, AVR, AVL, AVF, V3 BORDERLINE ECG COMPARED TO ECG 11/12/2019 16:32:24 NO SIGNIFICANT CHANGES Electronically Signed On 05-03-2022 12:12:40 DEMURRAGE AGENT by Josh Lucio D.O.
--- NOTE | 2022-05-03 12:02 | ED.WEAKNESS ---
HPI - Weakness General Chief complaint: Weakness Stated complaint: weakness, low back pain Time Seen by Provider: 05/03/22 12:02 Source: patient, family and EMS Mode of arrival: EMS Limitations: dementia History of Present Illness HPI Narrative: Patient is a 76 yo female with a history of hypertension, hyperlipidemia, Type II DM, TIA, chronic anticoagulation, TAVR in 2019, CABG, dementia, presenting to the emergency department for evaluation of generalized weakness. Patient's daughter provides much of the history given the patient's dementia. States that she has been able to care for her mother, due to increasing weakness, difficulty with ambulation. Patient has had increased frequency of urinary incontinence. Not reporting any fever, cough, abdominal pain, vomiting, diarrhea. Patient's daughter states that she cannot care for her at home and is now currently looking for placement. In the past per chart review, patient has been on hospice care. Patient has relocated here from [place] and has transitioned off of hospice care. Related Data Home Medications Medication Instructions Recorded Confirmed empagliflozin 10 mg tablet 10 mg PO DAILY 04/25/21 02/03/22 (Jardiance) ferrous sulfate 325 mg (65 mg 325 mg PO DAILY 04/25/21 02/03/22 iron) tablet (FeroSul) aspirin 81 mg tablet,delayed 81 mg PO DAILY 07/05/21 02/03/22 release (Adult Aspirin Regimen) rivaroxaban 2.5 mg tablet (Xarelto) 2.5 mg PO BID 07/05/21 02/03/22 finerenone 10 mg tablet (Kerendia) 10 mg PO DAILY 02/03/22 02/03/22 lisinopril 5 mg tablet 5 mg PO DAILY 05/03/22 Allergies Allergy/AdvReac Type Severity Reaction Status Date / Time atorvastatin AdvReac Unknown pains Verified 05/03/22 12:16 rosuvastatin AdvReac Unknown Muscle Pain Verified 05/03/22 12:16 sertraline AdvReac Unknown tremors Verified 05/03/22 12:16 Review of Systems Review of Systems: ROS unobtainable: Yes unobtainable due to medical condition (dementia) [facility] Past Medical History Medical History Bilateral carotid artery stenosis CAD (coronary artery disease) Cerebral atherosclerosis MRA brain 11/24/2020 Diabetes type 2, controlled 09/2015 GERD (gastroesophageal reflux disease) History of transcatheter aortic valve replacement (TAVR) HTN (hypertension) Hx of non-ST elevation myocardial infarction (NSTEMI) Major depressive disorder, recurrent, mild Mixed hyperlipidemia NSTEMI (non-ST elevated myocardial infarction) Surgical History Surgical History H/O bilateral cataract extraction Heart valve replaced TAVR 12/2019 Hx of CABG 5 vessel 2017 S/P appendectomy Family History Family History Mother Family history of heart attack Endometritis Heart disease Hypertension Father Cancer of lung Coronary artery disease Acute myocardial infarction Family history of heart attack Heart disease Hypertension Sibling Diabetes mellitus Family history of heart attack Heart disease Grandparent Acute myocardial infarction Other Cerebrovascular accident Social History Social History Social History: The patient is . She lives home alone. She has 3 children. She denies any marijuana or illicit drugs. She reports that her code status is DNR. Her designated surrogate decision maker is her daughter Charly Esquivel. She is retired from [employer]. She is a former smoker. She quit 50 years ago. Smoking packs per day: 1.5 Smoking cigarettes per day: 30.0 Years smoked: 5 Smoking pack-years: 7.50 Smoking status: Former smoker Tobacco type: cigarettes Second hand tobacco smoke exposure: No Smoking end date: 04/30/1967 Alcohol intake: never Drinks per week: 1 Substance use: never Substance use type: does not use Gender identity (if ve
[2022-05-03 12:34] LABS: Add Urine Microscopic? YES; Appearance Urine Clear (Clear); Bilirubin Urine Negative (Negative); Blood Urine Negative (Negative); Color Urine Yellow (Yellow); Glucose Urine UA 3+ mg/dL (Negative); Ketones Urine Negative (Negative); Leukocyte Esterase Ur Negative LEU/UL (Negative); Nitrate Urine Negative (Negative); Protein Urine Negative (Negative); Urobilinogen Urine 0.2 mg/dL (<2.0)
[2022-05-03 12:42] LABS: Mucus Urine Rare /lpf; RBC Urine 0-2 /hpf (0-2); Squamous Epithelial Cell Urine Rare /hpf (Few); WBC Urine 0-3 /hpf
[2022-05-03] MEDS: SODIUM CHLORIDE 0.9% IV 1,000 ML 999 ML IV CONT (12:56)
[2022-05-03 13:08] LABS: Basophils Absolute Auto 0.1 K/mm3 (0.0-0.1); Basophils Percent Auto 0.4 % (0.2-1.2); Eosinophils Absolute Auto 0.1 K/mm3 (0-0.3); Eosinophils Percent Auto 0.5 % (0-4.4); Hematocrit 49.7 % (37.0-47.0); Hemoglobin 16.1 g/dL (12.0-15.0); Immature Granulocyte Absolute 0.05 K/mm3 (0.00-0.031); Immature Granulocyte Percent A 0.4 % (0-0.5); Lymphocytes Absolute Auto 1.89 K/mm3 (0.9-3.2); Lymphocytes Percent Auto 15.7 % (18.3-44.2); Mean Corpuscular HGB Conc 32.4 g/dl (32-36); Mean Corpuscular Hemoglobin 26.8 pg (26-34); Mean Corpuscular Volume 82.8 fl (80-100); Mean Platelet Volume 9.1 fl (7.4-10.4); Monocytes Absolute Auto 0.8 K/mm3 (0.1-0.6); Monocytes Percent Auto 6.9 % (2.6-8.5); Neutrophils Absolute Auto 9.2 K/mm3 (1.3-6.7); Neutrophils Percent Auto 76.1 % (45.5-73.1); Platelet Count Result 196 k/mm3 (150-375); Red Cell Distribution Width 16.3 % (11.5-14.5); White Blood Count 12.1 K/mm3 (4.5-10.0)
[2022-05-03 13:31] LABS: Alanine Aminotransferase 18 U/L (6-35); Albumin Level 4.2 g/dL (3.5-5.1); Alkaline Phosphatase 68 U/L (38-126); Anion Gap 6 mmol/L (8-16); Aspartate Amino Transferase 33 U/L (14-36); Bilirubin,Total 1.2 mg/dL (0.2-1.3); Blood Urea Nitrogen 24 mg/dL (7-17); Calcium 8.9 mg/dL (8.4-10.2); Carbon Dioxide 29 mmol/L (22-30); Chloride 99 mmol/L (98-107); Estimated CRCL calculation 39 ml/min; Estimated Glomerular Filt Rate 54; Glucose 143 mg/dL (65-110); Potassium 3.7 mmol/L (3.4-5.0); Sodium 134 mmol/L (137-145)
[2022-05-03 13:34] LABS: INR 1.3
[2022-05-03 13:51] LABS: Influenza A QL RT-PCR Negative (Negative); Influenza B QL RT-PCR Negative (Negative); RSV RNA, RT-PCR Negative (Negative); SARS-CoV-2 RNA PCR Negative
[2022-05-03 15:27] LABS: Troponin I 0.095 ng/mL (0.000-0.034)
--- NOTE | 2022-05-03 16:30 | PM.IMHP ---
H&P: HPI History of Present Illness Date/Time: 05/03/22 16:30 Chief Complaint: Weakness and back pain. Narrative: This is a 76-year-old female with dementia, hypertension, hyperlipidemia, coronary artery disease, type 2 diabetes mellitus, and other comorbidities who presented to the emergency department for evaluation of weakness and back pain. She has not ate provide any meaningful history given her severe dementia and her daughter Charly provides almost all of the following history, with the patient's permission. She has been living with Charly since January and was previously living with her other daughter in [place]. Sometime in January the family members suspected that she had a stroke and she has gone downhill since that time. It is now to the point where she is unable to hold a decent conversation, she is having difficulties recognizing her family members, and she is needing help with her activities of daily living. A caregiver stays with the patient while Charly is at work and a noted that she had difficulties getting up to go to the bathroom today and report that the patient was complaining of back pain which is a new finding. She has also been incontinent of urine which is a new finding. She has not had any recent falls. There has not been loss of consciousness. No reports of fever or cold or flu symptoms. The patient has not had vomiting or diarrhea. Labs, imaging, EKG, and vitals were reviewed. Her Vital signs were stable on arrival. Labs were significant for mild leukocytosis, elevated hemoglobin/hematocrit, elevated BUN, sodium 134, and mild troponin elevation. Her urine was pretty unremarkable aside from 3+ glucose. She tested negative for influenza, RSV, and COVID. Chest x-ray showed mild atelectasis without any other findings. There were no acute findings noted on brain CT. Long discussion had at bedside with Charly and at this point in time she would not want to pursue a significant workup and she specifically states that she would not want a brain MRI, echocardiogram, stress test, or any other testing. Instead she would like her mother to be comfortable and she hopes that she is able to find her a place in memory care as she feels she can no longer care for her home. It is noted that the patient was previously on hospice but after 6 months they told her she no longer qualified. Review of Systems Review of Systems: Unable to obtain accurately given severe dementia. [facility] Past Medical History Medical History Bilateral carotid artery stenosis CAD (coronary artery disease) Cerebral atherosclerosis MRA brain 11/24/2020 Diabetes type 2, controlled 09/2015 GERD (gastroesophageal reflux disease) History of transcatheter aortic valve replacement (TAVR) HTN (hypertension) Hx of non-ST elevation myocardial infarction (NSTEMI) Major depressive disorder, recurrent, mild Mixed hyperlipidemia NSTEMI (non-ST elevated myocardial infarction) Surgical History Surgical History H/O bilateral cataract extraction Heart valve replaced TAVR 12/2019 Hx of CABG 5 vessel 2017 S/P appendectomy Family History Family History Mother Family history of heart attack Endometritis Heart disease Hypertension Father Cancer of lung Coronary artery disease Acute myocardial infarction Family history of heart attack Heart disease Hypertension Sibling Diabetes mellitus Family history of heart attack Heart disease Grandparent Acute myocardial infarction Other Cerebrovascular accident Social History Social History Social History: The patient is . She is currently living with her daughter Charly. Retired from [employer]. Former smoker. No alcohol or illicit substance use. Healthcare power of sander and polisher: Charly Fang
[2022-05-03 18:08] LABS: Troponin I 0.085 ng/mL (0.000-0.034)
[2022-05-04 06:37] VITALS: BP 147/75; PULSE 81; RESP 18; TEMP 36.7; O2SAT 94
[2022-05-04] MEDS: EMPAGLIFLOZIN 10 MG TABLET PO (08:34)
[2022-05-04] MEDS: EZETIMIBE 10 MG TABLET PO (08:34)
[2022-05-04] MEDS: ASPIRIN 81 MG ENTERIC TABLET PO (08:34)
[2022-05-04] MEDS: RIVAROXABAN 2.5 MG TABLET PO (08:34)
[2022-05-04] MEDS: lisinopriL 5 MG TABLET PO (08:35)
[2022-05-04 11:05] LABS: Hematocrit 48.9 % (37.0-47.0); Hemoglobin 15.5 g/dL (12.0-15.0); Mean Corpuscular HGB Conc 31.7 g/dl (32-36); Mean Corpuscular Hemoglobin 26.9 pg (26-34); Mean Corpuscular Volume 84.9 fl (80-100); Mean Platelet Volume 9.5 fl (7.4-10.4); Platelet Count Result 217 k/mm3 (150-375); Red Blood Count 5.76 M/mm3 (4.2-5.4); White Blood Count 9.8 K/mm3 (4.5-10.0)
[2022-05-04 11:28] LABS: Blood Urea Nitrogen 20 mg/dL (7-17); Calcium 8.5 mg/dL (8.4-10.2); Carbon Dioxide 25 mmol/L (22-30); Estimated CRCL calculation 43 ml/min; Estimated Glomerular Filt Rate > 60; Glucose 219 mg/dL (65-110); Potassium 3.3 mmol/L (3.4-5.0); Sodium 132 mmol/L (137-145)
[2022-05-04 11:46] LABS: Anion Gap 7 mmol/L (8-16); Chloride 100 mmol/L (98-107)
--- NOTE | 2022-05-04 12:16 | PCSTNOTE ---
Please refer to the Bedside Swallow Evaluation in the EMR. Please note, silent aspiration cannot be ruled out at bedside.
[2022-05-04 12:25] VITALS: BMI 26.8
--- NOTE | 2022-05-04 13:16 | PM.DS ---
DS: Admitting Diagnosis Discharge Date 05/04/2022 Admitting Diagnosis Confusion DS: Discharge Diagnosis Discharge Diagnosis (1) Generalized weakness: Code(s): R53.1 - Weakness Status: Acute (2) Weakness: Code(s): R53.1 - Weakness Status: Acute (3) Progressive dementia with uncertain etiology: Code(s): F03.90 - Unspecified dementia, unspecified severity, without behavioral disturbance, psychotic disturbance, mood disturbance, and anxiety Status: Acute (4) Elevated troponin: Code(s): R77.8 - Other specified abnormalities of plasma proteins Status: Acute (5) CAD (coronary artery disease): Qualifiers: Coronary Disease-Associated Artery/Lesion type: bypass graft, other Associated angina: without angina Qualified Code(s): I25.810 - Atherosclerosis of coronary artery bypass graft(s) without angina pectoris Code(s): I25.10 - Atherosclerotic heart disease of [place] coronary artery without angina pectoris Status: Chronic (6) Bilateral carotid artery stenosis: Code(s): I65.23 - Occlusion and stenosis of bilateral carotid arteries Status: Acute (7) Diabetes type 2, controlled: Code(s): E11.9 - Type 2 diabetes mellitus without complications Status: Acute DS: Summary Hospital Course Hospital Course: Date of admission: 05/03/2022 Date of discharge: 05/04/2022 Ana Esquivel is a 76 year old female with a history of hypertension, CAD, carotid stenosis, diabetes mellitus, hyperlipidemia, and dementia who presented to the emergency department on 05/03/2022 from home due to concerns of increased weakness. Patient presented with her daughter who felt that her confusion has been progressively worsening and she is no longer able to care for herself at home. Family interested in memory care placement. On presentation to the ED, the patient's vital signs were stable, white blood cell count 12.1, hemoglobin 16.1, hematocrit 49.7, no significant electrolyte derangement noted, urinalysis without concerns for infection, troponin was mildly elevated, CXR showed mild atelectasis, and head CT showed no acute findings with multiple chronic infarcts. She was admitted to the hospitalist service for further evaluation and management. Troponin levels monitored and did trend down. Patient's daughter/POA indicated no interest in pursuing further cardiac workup or any evaluation for other medical conditions. Hospice care was discussed, however patient was recently on hospice and was discharged and was told she was no longer qualified. At this time, family is more interested in nursing care to help assist patient with daily activities. Care coordination arranged placement at SNF with eventual transition to detention care. Patient was discharged in hemodynamically stable condition on 05/04/2022. Time Spent with Patient Time attestation: Total time spent providing and/or coordinating discharge services: 45 minutes Exam Narrative: General: Well-nourished, well-appearing 76-year-old female, sitting up in bed, comfortable, NARD Neuro: awake, alert and oriented x2, speech clear, no focal neuro deficits noted HEENMT: normocephalic, atraumatic, EOMI, sclerae anicteric Respiratory: clear to auscultation bilaterally, nonlabored breathing Cardio: regular rate, regular rhythm with S1-S2 Abdomen: nondistended, normoactive bowel sounds, soft, nontender to palpation Extremities: no edema, erythema, or tenderness to palpation, DP pulses 2+ bilaterally Skin: no rashes or lesions, warm and dry Psych: appropriate mood and affect, judgment and insight fair DS: Data Data Completed and Pending Labs on day of discharge: Labs from last 24 hours 05/04/22 05/04/22 05/03/22 10:27 10:27 17:19 WBC 9.8 RBC 5.76 H Hgb 15.5 H Hct 48.9 H MCV 84.9 MCH 26.9 MCHC 31.7 L RDW 16.0 H Plt Count 217 MPV 9.5 Immature Gran % (Auto) Neut % (Auto)
[2022-05-04 14:00] VITALS: BP 102/73; PULSE 94; RESP 16; TEMP 35.9; O2SAT 94
== END 2022-05-04 14:55 ==
LOC: ANHED 14:51 → ANHIMU 16:31 → ANH3MEDSUR 19:56
PROVIDERS: Admitting Provider Internal Medicine; Emergency Provider Emergency Medicine; PCP Family Medicine Adolescent Medicine; Visit Provider Physician Assistant
DX: R53.1 Weakness (principal); F03.90 Unspecified dementia, unspecified severity, without behavioral disturbance, psychotic disturbance, mood disturbance, and anxiety; R77.8 Other specified abnormalities of plasma proteins; I25.10 Atherosclerotic heart disease of native coronary artery without angina pectoris; I65.23 Occlusion and stenosis of bilateral carotid arteries; E11.9 Type 2 diabetes mellitus without complications; I67.2 Cerebral atherosclerosis; I10 Essential (primary) hypertension; E78.5 Hyperlipidemia, unspecified; Z86.73 Personal history of transient ischemic attack (TIA), and cerebral infarction without residual deficits; Z95.2 Presence of prosthetic heart valve; Z20.822 Contact with and (suspected) exposure to COVID-19; J98.11 Atelectasis; I25.2 Old myocardial infarction; F32.9 Major depressive disorder, single episode, unspecified; K21.9 Gastro-esophageal reflux disease without esophagitis; Z87.891 Personal history of nicotine dependence; R90.82 White matter disease, unspecified; Z95.1 Presence of aortocoronary bypass graft; R35.0 Frequency of micturition; Z66 Do not resuscitate; R32 Unspecified urinary incontinence; Z79.01 Long term (current) use of anticoagulants; Z79.82 Long term (current) use of aspirin; Z79.899 Other long term (current) drug therapy; Z82.49 Family history of ischemic heart disease and other diseases of the circulatory system
CPT/HCPCS: 36415; 51701; 70450; 71045; 80048; 80053; 81001; 84443; 84484; 85025; 85027; 85610; 85730; 87637; 92610; 93005; 96360; 96361; 99285; A9270; G0378; J1630; J7030

== ENCOUNTER 2022-08-27 13:03 | Emergency (ER) | payer MEDICARE, SELFPAY ==
[2022-08-27] VITALS (7 sets, daily range): BP systolic 110–131; BP diastolic 64–76; PULSE 78–86; RESP 16; TEMP 36.3–37; O2SAT 95–98
--- NOTE | ~2022-08-27 | CT_ITS ---
EXAMINATION: CT brain wo con DATE: 08/27/2022 13:57 INDICATION: Head injury post fall with hematoma to the left side of the forehead. Dementia. TECHNIQUE: Computed tomography (CT) of the head was performed without intravenous contrast. Sagittal and coronal reconstructions were performed. The mA was adjusted according to patient size. Iterative reconstruction technique was employed. The dose-length product was 605.33 mGy-cm. COMPARISON: head CT dated 05/03/2022 FINDINGS: Moderate-sized anterior left frontal scalp hematoma. No calvarial fracture. There are several small t o moderate-sized regions of encephalomalacia consistent with chronic infarcts including a couple in b oth the right and left anterior frontal lobes, the left parieto-occipital region, left temporal occip ital and a few in the bilateral cerebellar hemispheres. Additional small old lacunar infarct at the r ight thalamus. No acute intracranial hemorrhage, acute infarction or abnormal extra axial fluid colle ction. There is additional mild scattered white matter hypoattenuation consistent with chronic small vessel ischemic disease. Symmetric prominence of the sulci and ventricles consistent with mild age-ap propriate diffuse cerebral volume loss. No mass/mass effect. Changes of bilateral intraocular lens re placement. The orbits and mastoid air cells are normal. Mild mucosal thickening the paranasal sinuses with postoperative change of prior right antrectomy and middle turbinectomy. IMPRESSION: 1. No fracture or acute intracranial process. 2. Multiple chronic infarcts in the bilateral cerebral and cerebellar hemispheres and right thalamus. 3. Age-related changes including moderate diffuse volume loss and additional mild scattered white mat ter hypoattenuation consistent with chronic small vessel ischemic disease. Reviewed, dictated and finalized at location A. IMPRESSION: 1. No fracture or acute intracranial process. 2. Multiple chronic infarcts in the bilateral cerebral and cerebellar hemispher es and right thalamus. 3. Age-related changes including moderate diffuse volume loss and additional mi ld scattered white matter hypoattenuation consistent with chronic small vessel ischemic disease.
--- NOTE | ~2022-08-27 | CT_ITS ---
EXAMINATION: CT cervical spine wo con DATE: 08/27/2022 13:57 INDICATION: Fall with head injury. Dementia. TECHNIQUE: Computed tomography (CT) of the cervical spine was performed without intravenous contrast. Automated exposure control and iterative reconstruction technique were employed. The dose-length pro duct was 304.05 mGy-cm. COMPARISON: None FINDINGS: 2 mm anterolisthesis C6 on C7 and C7 on T1. Vertebral body heights are normal. No fracture. Mild disc height loss at C5-C6 and C7-T1 through T2-T3. Severe multilevel bilateral cervical facet osteoarthri tis which contributes to mild to moderate neural foraminal stenosis on the left at C3-C4 and on the r ight at C4-C5. Mild stenosis at many of the remaining bilateral cervical neural foramina. There appea rs be disc extrusion at C5-C6 with disc material extending several millimeters cephalad to the level of the inferior endplate of C5 which results in mild central canal stenosis. Atherosclerotic calcific a cyst at the bilateral carotid bulbs. Cervical soft tissues are otherwise unremarkable. Visualized apices of the lungs are clear. IMPRESSION: 1. Mild cervical and upper thoracic spondylosis. No acute osseous abnormality. Reviewed, dictated and finalized at location A.
--- NOTE | ~2022-08-27 | XR_ITS ---
EXAMINATION: XR shoulder LT min 2V DATE: 08/27/2022 13:27 INDICATION: Left shoulder pain TECHNIQUE: AP internally and externally rotated, AP oblique externally rotated and transscapular Y vi ews of the left shoulder were obtained. COMPARISON: None FINDINGS: Normal alignment. No fracture.Mild left glenohumeral and moderate acromioclavicular osteoarthritis. Visualized portion of the lungs are clear. Heart size is normal. Median sternotomy wires and mediasti nal surgical clips are seen, likely from prior coronary artery bypass grafting. Aortic valve repair. IMPRESSION: Mild left glenohumeral and moderate acromioclavicular osteoarthritis. Reviewed, dictated and finalized at location A.
[2022-08-27] MEDS: TETANUS,DIPHTHERIA,AC PERTUSSIS ADULT (0.5 ML) BOOSTRIX IM (13:26)
--- NOTE | 2022-08-27 13:35 | ED.FALL ---
HPI - Fall General Chief Complaint: Fall Stated Complaint: fall, struck left faith area Source: patient, EMS, RN notes reviewed and old records reviewed Mode of arrival: EMS Limitations: dementia History of Present Illness HPI Narrative: This is a 76 year old female with history of dementia who presents for evaluation of a fall. EMS states patient was walking with daughter when she fell. It is reported that it is extremely windy and this made the patient fall. She fell hitting her head but they deny LOC. Patient is oriented to person which is her baseline. EMS states patient has no complaints and it is reported that she is acting normal. Patient denies any pain. Patient takes aspirin 81 mg and Xarelto 2.5 mg BID according to her medication list Related Data Home Medications Medication Instructions Recorded Confirmed empagliflozin 10 mg tablet 10 mg PO DAILY 04/25/21 06/06/22 (Jardiance) aspirin 81 mg tablet,delayed 81 mg PO DAILY 07/05/21 06/06/22 release (Adult Aspirin Regimen) lisinopril 5 mg tablet 5 mg PO DAILY 05/03/22 06/06/22 Allergies Allergy/AdvReac Type Severity Reaction Status Date / Time atorvastatin AdvReac Unknown pains Verified 08/27/22 13:26 rosuvastatin AdvReac Unknown Muscle Pain Verified 08/27/22 13:26 sertraline AdvReac Unknown tremors Verified 08/27/22 13:26 Review of Systems Review of Systems: ROS unobtainable: Yes other (dementia) [facility] Past Medical History Medical History Bilateral carotid artery stenosis CAD (coronary artery disease) Cerebral atherosclerosis MRA brain 11/24/2020 Diabetes type 2, controlled 09/2015 GERD (gastroesophageal reflux disease) History of transcatheter aortic valve replacement (TAVR) HTN (hypertension) Hx of non-ST elevation myocardial infarction (NSTEMI) (2017) Major depressive disorder, recurrent, mild Mixed hyperlipidemia NSTEMI (non-ST elevated myocardial infarction) Surgical History Surgical History H/O bilateral cataract extraction Heart valve replaced TAVR 12/2019 Hx of CABG 5 vessel 2017 S/P appendectomy Family History Family History Mother Family history of heart attack Endometritis Heart disease Hypertension Father Cancer of lung Coronary artery disease Acute myocardial infarction Family history of heart attack Heart disease Hypertension Sibling Diabetes mellitus Family history of heart attack Heart disease Grandparent Acute myocardial infarction Other Cerebrovascular accident Social History Social History Social History: The patient is . She is currently living with her daughter Charly. Retired from [employer]. Former smoker. No alcohol or illicit substance use. Healthcare power of civil litigation attorney: Charly Esquivel. Code status: DNR. Smoking packs per day: 1.5 Smoking cigarettes per day: 30.0 Years smoked: 5 Smoking pack-years: 7.50 Smoking status: Never smoker Tobacco type: cigarettes Second hand tobacco smoke exposure: No Smoking end date: 04/30/1967 Alcohol intake: never Drinks per week: 1 Substance use: never Substance use type: does not use Lack of Transportation: No Lack of Food: Never True Current Housing: I Have Housing Concerned About Future Housing: No Difficulty Paying Gas/Electric Bills: No Difficulty Paying for Meds: No Currently Unemployed: No Education: High School Diploma/GED Difficulty w/ Childcare or Family Care: No Living arrangements: with family Occupation/Education: retired Gender identity (if verbalized by the patient): Female Sexual Orientation (if Verbalized by the Patient): Straight or Heterosexual Spiritual care concerns: No Agree to blood products: Yes Exam Const: General: no acute distress and alert
== END 2022-08-27 16:06 ==
PROVIDERS: Emergency Provider General Practice; PCP Family Medicine Adolescent Medicine
DX: S09.90XA Unspecified injury of head, initial encounter (principal); S40.212A Abrasion of left shoulder, initial encounter; I25.10 Atherosclerotic heart disease of native coronary artery without angina pectoris; E11.9 Type 2 diabetes mellitus without complications; K21.9 Gastro-esophageal reflux disease without esophagitis; I10 Essential (primary) hypertension; F32.9 Major depressive disorder, single episode, unspecified; F32.A Depression, unspecified; W01.0XXA Fall on same level from slipping, tripping and stumbling without subsequent striking against object, initial encounter; Z23 Encounter for immunization
CPT/HCPCS: 70450; 72125; 73030; 90471; 90715; 99284

== ENCOUNTER 2022-12-24 06:11 | Emergency (ER) | payer MEDICARE, SELFPAY ==
[2022-12-24 06:11] VITALS: BP 120/80; PULSE 72; RESP 15; TEMP 36.4; O2SAT 100
[2022-12-24 06:14] VITALS: BP 120/80
[2022-12-24 06:16] VITALS: O2SAT 97
[2022-12-24 06:37] LABS: Basophils Absolute Auto 0.1 K/mm3 (0.0-0.1); Basophils Percent Auto 0.5 % (0.2-1.2); Eosinophils Absolute Auto 0.2 K/mm3 (0-0.3); Eosinophils Percent Auto 1.6 % (0-4.4); Hematocrit 42.8 % (37.0-47.0); Hemoglobin 13.3 g/dL (12.0-15.0); Immature Granulocyte Absolute 0.04 K/mm3 (0.00-0.031); Immature Granulocyte Percent A 0.4 % (0-0.5); Lymphocytes Percent Auto 16.8 % (18.3-44.2); Mean Corpuscular HGB Conc 31.1 g/dl (32-36); Mean Corpuscular Hemoglobin 26.9 pg (26-34); Mean Corpuscular Volume 86.6 fl (80-100); Mean Platelet Volume 9.2 fl (7.4-10.4); Monocytes Absolute Auto 0.6 K/mm3 (0.1-0.6); Monocytes Percent Auto 5.7 % (2.6-8.5); Neutrophils Absolute Auto 8.5 K/mm3 (1.3-6.7); Platelet Count Result 249 k/mm3 (150-375); Red Blood Count 4.94 M/mm3 (4.2-5.4); Red Cell Distribution Width 15.1 % (11.5-14.5); White Blood Count 11.3 K/mm3 (4.5-10.0)
[2022-12-24 06:48] LABS: Alanine Aminotransferase 21 U/L (6-35); Albumin Level 3.9 g/dL (3.5-5.1); Alkaline Phosphatase 82 U/L (38-126); Anion Gap 5 mmol/L (8-16); Aspartate Amino Transferase 24 U/L (14-36); Bilirubin,Total 0.5 mg/dL (0.2-1.3); Blood Urea Nitrogen 27 mg/dL (7-17); Calcium 9.4 mg/dL (8.4-10.2); Carbon Dioxide 29 mmol/L (22-30); Chloride 106 mmol/L (98-107); Estimated CRCL calculation 31 ml/min; Estimated Glomerular Filt Rate 37; Glucose 132 mg/dL (65-110); Lipase 101 U/L (23-300); Potassium 4.1 mmol/L (3.4-5.0); Sodium 140 mmol/L (137-145)
[2022-12-24] MEDS: SODIUM CHLORIDE 0.9% IV 1,000 ML 999 ML IV CONT (07:46)
--- NOTE | 2022-12-24 07:55 | ED.GENADULT ---
HPI - General Adult General Chief complaint: Nausea/Vomiting/Diarrhea Stated complaint: N/V/D Time Seen by Provider: 12/24/22 07:02 History of Present Illness HPI narrative: Patient is a 77-year-old female with history of dementia who presents to the ER with reports of nausea/vomiting/diarrhea. Patient oriented x1 but pleasant. She reports no distress but is unable to provide any history and is unsure why she is here. Patient is on Xarelto. Related Data Home Medications Medication Instructions Recorded Confirmed empagliflozin 10 mg tablet 10 mg PO DAILY 04/25/21 06/06/22 (Jardiance) aspirin 81 mg tablet,delayed 81 mg PO DAILY 07/05/21 06/06/22 release (Adult Aspirin Regimen) lisinopril 5 mg tablet 5 mg PO DAILY 05/03/22 06/06/22 Allergies Allergy/AdvReac Type Severity Reaction Status Date / Time atorvastatin AdvReac Unknown pains Verified 12/24/22 06:35 rosuvastatin AdvReac Unknown Muscle Pain Verified 12/24/22 06:35 sertraline AdvReac Unknown tremors Verified 12/24/22 06:35 Review of Systems Review of Systems: ROS unobtainable: Yes unobtainable due to mental status PMFSH Past Medical History Medical History Bilateral carotid artery stenosis CAD (coronary artery disease) Cerebral atherosclerosis MRA brain 11/24/2020 Diabetes type 2, controlled 09/2015 GERD (gastroesophageal reflux disease) History of transcatheter aortic valve replacement (TAVR) HTN (hypertension) Hx of non-ST elevation myocardial infarction (NSTEMI) (2016) Major depressive disorder, recurrent, mild Mixed hyperlipidemia NSTEMI (non-ST elevated myocardial infarction) Surgical History Surgical History H/O bilateral cataract extraction Heart valve replaced TAVR 12/2019 Hx of CABG 5 vessel 2017 S/P appendectomy Family History Family History Mother Family history of heart attack Endometritis Heart disease Hypertension Father Cancer of lung Coronary artery disease Acute myocardial infarction Family history of heart attack Heart disease Hypertension Sibling Diabetes mellitus Family history of heart attack Heart disease Grandparent Acute myocardial infarction Other Cerebrovascular accident Social History Social History Social History: The patient is . She is currently living with her daughter Charly. Retired from [employer]. Former smoker. No alcohol or illicit substance use. Healthcare power of insurance attorney: Charly Esquivel. Code status: DNR. Smoking packs per day: 1.5 Smoking cigarettes per day: 30.0 Years smoked: 5 Smoking pack-years: 7.50 Smoking status: Never smoker Tobacco type: cigarettes Second hand tobacco smoke exposure: No Smoking end date: 04/30/1967 Alcohol intake: never Drinks per week: 1 Substance use: never Substance use type: does not use Lack of Transportation: No Lack of Food: Never True Current Housing: I Have Housing Concerned About Future Housing: No Difficulty Paying Gas/Electric Bills: No Difficulty Paying for Meds: No Currently Unemployed: No Education: High School Diploma/GED Difficulty w/ Childcare or Family Care: No Living arrangements: with family Occupation/Education: retired Gender identity (if verbalized by the patient): Female Sexual Orientation (if Verbalized by the Patient): Straight or Heterosexual Spiritual care concerns: No Agree to blood products: Yes Exam Narrative: GENERAL: Well-appearing, well-nourished, and in no acute distress. HEAD: Normocephalic, atraumatic. EYES: PERRL and EOMI. ENT: Mucous membranes moist. CHEST: Clear to auscultation. No respiratory distress. HEART: Regular rate and rhythm. No murmur heard. Normal peripheral pulses. ABDOMEN: Soft, nontender, nondistended. No
--- NOTE | 2022-12-24 07:58 | PC.NURSE ---
Pt alert to name only. Bed alarm applied. Pt pleasantly confused.
[2022-12-24 08:05] LABS: Appearance Urine Cloudy (Clear); Bacteria Urine 4+ /hpf; Bilirubin Urine Negative (Negative); Blood Urine Negative (Negative); Color Urine Yellow (Yellow); Glucose Urine UA 3+ mg/dL (Negative); Ketones Urine Negative (Negative); Leukocyte Esterase Ur Trace LEU/UL (Negative); Nitrate Urine Negative (Negative); Non Pathogenic Casts 0-2; Protein Urine Negative (Negative); RBC Urine 0-2 /hpf (0-2); Specific Grav Ur 1.014 (1.001-1.035); Squamous Epithelial Cell Urine None seen /hpf (Few); pH Urine 5.5 (5.0-9.0)
[2022-12-24 08:08] LABS: Add Urine Microscopic? YES
--- NOTE | 2022-12-24 10:16 | PC.NURSE ---
Report called to [facility].
== END 2022-12-24 10:17 ==
PROVIDERS: Emergency Medicine; Emergency Provider Emergency Medicine; PCP Family Medicine Adolescent Medicine
DX: K52.9 Noninfective gastroenteritis and colitis, unspecified (principal); E86.0 Dehydration; N39.0 Urinary tract infection, site not specified; I25.10 Atherosclerotic heart disease of native coronary artery without angina pectoris; I10 Essential (primary) hypertension; E78.2 Mixed hyperlipidemia; I25.2 Old myocardial infarction; E11.9 Type 2 diabetes mellitus without complications; Z87.891 Personal history of nicotine dependence
CPT/HCPCS: 36415; 80053; 81001; 83690; 85025; 87077; 87086; 87186; 96360; 99283; J7030